=== PATIENT | male | born 1955 | race Caucasian/White ===

== ENCOUNTER → 2016-02-21 | Outpatient (CLI) | payer OTHER ==
[2015-07-12 07:32] VITALS: BP 166/88
[~2016-02-21] MED LIST: AMLO10TA2 PO; ASCO10002 PO; ASPI325T11 PO; ASPI81TA2 PO; ASPI81TA9 PO; ATOR40TA PO; CALC-159 PO; CALC500T50 PO; CARV25TA PO; CELE200C PO; CETI10CA PO; CHOL500016 PO; DICL112S2 TP; LISI-338 PO; LISI-375 PO; MV M PO; NIAC1000 PO; OXYC-250 PO; PSYL1PAC7 PO; SIMV40TA3 PO; SIMV5TAB PO; VITA100T5 PO; WARF6TAB PO
--- NOTE | 2016-02-21 13:07 | EKG ---
[facility] [address] [place] [address] Test Date: 2016-02-21 Test Time: 13:12:37 Pat Name: TRI DE LA ROSA Department: Room: Gender: M Kennel Operator: LETICIA : 1955 Requested By: LANE LUTHER Order Number: [id number] Reading MD: Measurements Intervals [place] Rate: 59 P: 62 [place]: 164 QRS: 80 QRSD: 88 T: 65 QT: 420 QTc: 420 Interpretive Statements SINUS RHYTHM LEFT ATRIAL ABNORMALITY R-S TRANSITION ZONE IN V LEADS DISPLACED TO THE LEFT INCOMPLETE RIGHT BUNDLE BRANCH BLOCK QRS(T) CONTOUR ABNORMALITY CONSIDER ANTEROLATERAL MYOCARDIAL DAMAGE ABNORMAL ECG RI6.01 Compared to ECG 08/03/2012 10:33:49 Myocardial infarct finding no longer present
[2016-02-21 13:22] LABS: BASO # 0.1 x10^3/uL (0.0-0.2); BASO % 1 % (0-3); EOS % 2 % (0-3); HEMATOCRIT 43.6 % (39.0-53.0); HEMOGLOBIN 14.4 g/dL (13.0-17.5); LYMPH # 1.7 x10^3/uL (1.0-4.8); LYMPH % 18 % (24-48); MEAN CORPUSCULAR HEMOGLOBIN 29 pg (25-35); MEAN CORPUSCULAR HGB CONC 33 g/dL (31-37); MEAN CORPUSCULAR VOLUME 87 fL (79-100); MONO % 9 % (0-9); NEUT % 70 % (31-73); PLATELET COUNT 226 x10^3/uL (140-400); RED BLOOD COUNT 4.99 x10^6/uL (4.30-5.70); WHITE BLOOD COUNT 9.2 x10^3/uL (4.0-11.0)
[2016-02-21 13:37] LABS: ALBUMIN 3.5 g/dL (3.4-5.0); CALCIUM 8.9 mg/dL (8.5-10.1); GFR 75.7; POTASSIUM 3.7 mmol/L (3.5-5.1)
[2016-02-21 14:17] LABS: INR 1.1 (0.8-1.1); PROTHROMBIN TIME PATIENT 13.2 SEC (11.7-14.0)
[2016-02-21 14:50] LABS: BILIRUBIN,URINE NEGATIVE (NEG); GLUCOSE,URINE NEGATIVE (NEG); NITRITE,URINE NEGATIVE (NEG); PROTEIN,URINE NEGATIVE (NEG-TRACE)
[2016-02-21 15:06] LABS: BACTERIA,URINE 0 /HPF (0-FEW); RBC,URINE 0 /HPF (0-2); WBC,URINE 0 /HPF (0-4)
== END | disposition home or self-care (01) ==
LOC: SURGPAT 11:26
PROVIDERS: ATTEND Orthopaedic Surgery Sports Medicine
DX: Z01.812 Encounter for preprocedural laboratory examination (principal)
CPT/HCPCS: 36415; 80048; 81001; 82040; 85027; 85610; 85651; 85730; 87641; 93005

== ENCOUNTER → 2016-03-28 | Outpatient (CLI) | payer OTHER ==
[2016-03-01 03:45] VITALS: BP 157/70
[~2016-03-28] MED LIST changes: +BENZ100C PO; +IOHEXOL 300 MG/ML 75 ML VIAL IV ONE; +OSEL75CA PO
--- NOTE | 2016-03-28 12:41 | RAD ---
Chest CT with contrast Clinical indications: Abnormal chest x-ray. Cough. Technique: After IV infusion of 75 cc of Omnipaque 300, helical CT scanning of the chest was performed. PQRS Compliance Statement: One or more of the following individualized dose reduction techniques were utilized for this examination: 1. Automated exposure control 2. Adjustment of the mA and/or kV according to patient size 3. Use of iterative reconstruction technique Comparison: No previous chest CTs available. Findings: Abnormal paratracheal lymph nodes are seen. The largest lymph node is seen in the azygos region measuring 3.2 cm in greatest transverse dimension. Smaller aortopulmonary window and subcarinal lymph nodes are seen in addition to the paratracheal lymph nodes. There is a large right hilar mass lesion which is invading the upper right mediastinum and occludes the right upper lobe bronchus. This mass lesion measures 6.3 cm in AP dimension and 6.7 cm in transverse dimension and 6.5 cm in vertical dimension. There is aeration of the right upper lobe although diffuse consolidative infiltrate is present within the posterior and apical segments. This could represent postobstructive pneumonitis or endobronchial spread of tumor. There is encasement of the right upper lobe pulmonary artery. No focal aneurysmal dilatation of the thoracic aorta is seen. The heart size is within normal range limits. Calcified atheromatous disease of the coronary arteries is seen. No pericardial effusion is seen. A small right-sided pleural effusion is evident. No pneumothorax is seen. The left lung field is clear. There is a left adrenal nodule measuring 22 mm. It measures 8 Hounsfield units. This is consistent with an adenoma. Small gallstone is seen within the gallbladder. Diffuse fatty infiltration of the liver is evident. IMPRESSION: Large right hilar mass lesion invading the upper right mediastinum including encasement of the right upper lobe pulmonary artery and occlusion of the right upper lobe bronchus. This is consistent with bronchogenic malignancy. Mediastinal lymphadenopathy. Calcified atheromatous disease of the coronary arteries. Small gallstone. Fatty infiltration of the liver. Left adrenal adenoma.
== END | disposition home or self-care (01) ==
LOC: CT 07:37
PROVIDERS: ATTEND Family Medicine Sports Medicine
DX: R91.8 Other nonspecific abnormal finding of lung field (principal)
CPT/HCPCS: 71260; Q9967

== ENCOUNTER → 2016-04-03 | Day surgery (SDC) | payer OTHER ==
[~2016-04-03] MED LIST changes: +ALBUTEROL SULFATE 2.5 MG/3 ML NEBU. ONE; -IOHEXOL 300 MG/ML 75 ML VIAL IV ONE; +IV RINGERS,LACTATED 1000ML 1,000 ML IV SCH; +LIDOCAINE 2% PF Vial for OR 5 ML VIAL. ONE; +MEPERIDINE PF 25 MG/ML VIAL. ONE; +PROPOFOL 20 ML IV ONE
[2016-04-03 14:38] VITALS: BP 140/77
--- NOTE | 2016-04-03 23:09 | OP ---
DATE OF SURGERY: 04/03/2016 PROCEDURE: Bronchoscopy, forceps biopsies x 4, lavage of the right upper lobe. INDICATIONS: The patient presented with a persistent cough, a large 6.3 cm right hilar mass with extension to the mediastinum of the right upper lobe pulmonary artery and occlusion of the right upper lobe bronchus, undergoing a diagnostic bronchoscopy. Risks, benefits, and alternatives reviewed with patient. He consented. SEDATION: Please see anesthesia's notes. DESCRIPTION OF PROCEDURE: A timeout was performed prior to sedation. Vital signs and O2 saturation were maintained within normal limits throughout the procedure. The bronchoscope was then introduced through the left naris. The vocal cords were identified moving bilaterally without any dysfunction. The vocal cords were then anesthetized with a total of 5 mL of 4% lidocaine. The bronchoscope was passed through the vocal cords into the proximal trachea, which was normal. The distal trachea was likewise normal. The left segments and subsegments were visualized. There was no endobronchial lesion. Upon inspecting the right side, the lower segments were patent and the right upper lobe was completely occluded with a white fungating mass. Forceps biopsies were utilized to obtain 4 biopsies. The patient tolerated the procedure well with no immediate complications. FINDINGS: 1. Normal vocal cords. 2. Normal left segments and subsegments. 3. Total occlusion of the right upper lobe segment with a fungating mass. Multiple biopsies performed. PLAN: We will await the biopsy results. The patient tolerated the procedure well with no immediate complications. SEB HOLDER MD DR: FORD/cecile JOB#: [id number] / [id number] ALBIN Mendez DO
--- NOTE | 2016-04-05 16:20 | PATHOLOGY ---
CYTOPATHOLOGY REPORT CLINICAL HISTORY: Lung mass. See also [id number]. SPECIMEN(S) RECEIVED: A.Bronchoalveolar lavage, RUL FINAL DIAGNOSIS: Right upper lobe bronchoalveolar lavage, ThinPrep: - No malignant cells identified. - Bronchial epithelial cells, squamous epithelial cells, and pulmonary macrophages identified within a background of few inflammatory cells and red blood cells. Few yeast/fungal organisms identified consistent with Mckenzie species. (JPM:mgr; d/t: 04/05/16) PATHOLOGIST: Temo Geller M.D. REPORT ELECTRONICALLY SIGNED BY: Temo Geller M.D. DATE/TIME: 04/05/2016 16:20 GROSS PATHOLOGY: A. Bronchoalveolar lavage, RUL: The specimen is submitted unfixed, labeled "Tri Blair". Received by the Cytology Department is 10 mL of cloudy red fluid. One ThinPrep slide was prepared. (clt 04.04.2016) POLISH COMPOUNDER(S): MCKENZIE Fisher([facility]) INITIAL CPT CODE(S): A; 08787 Professional services performed [place] [email or web address] [address] Technical services performed by [facility] at [address] [place] [address], [address], [place] [address]. PATIENT: TRI BLAIR /AGE: 8 1955 (Age: 60) SEX: M PATIENT #: [id number] ALT CASE #: SPECIMEN COLLECTION DATE: 04/03/2016 SPECIMEN RECEIVED DATE: 04/04/[address] [facility] [address] [place] [address], [address] [place] [address] PHONE: [phone] DIRECTOR: Jeffry Fry M.D. * * * END OF REPORT * * *
--- NOTE | 2016-04-08 14:04 | PATHOLOGY ---
PATHOLOGY REPORT * * * * * * * * FINAL DIAGNOSIS: Bronchial biopsy, right upper lobe: - SMALL CELL CARCINOMA. SEE COMMENT. COMMENT: Sections of the right upper lobe bronchial biopsy reveal segments of bronchial mucosa. There is a malignant epithelial neoplasm which appears to undermine the bronchial surface epithelium. The malignant cells are present in solid nests. The malignant cells are relatively small and have a high N/C ratio. The malignant cells possess rounded to ovoid nuclei having a finely dispersed chromatin and inconspicuous nucleoli. There is nuclear molding. The tumor cells show crush artifact. There is no evidence of glandular or squamous differentiation. A panel of immunoperoxidase stains is obtained and yields the following results: CD45: tumor cells negative Cytokeratin 7: tumor cells negative AE1/AE3: tumor cells show dot-like positivity CK5/6: tumor cells negative CD56: tumor cells positive TTF-1: tumor cells positive P40: tumor cells negative Synaptophysin: tumor cells positive The morphologic and immunophenotypic findings are supportive of the diagnosis of small cell carcinoma. The results are reported to Dr. Werner on 04/08/16 at !;00 PM. The case is also examined by Dr. Francisco Parks, who concurs with the diagnosis. (JPM:mgnimisha; d/t: 04/08/16) Special Stains Performed: Immunoperoxidase stains for CK7, AE1/AE3, LCA, CK5/6, P40, Synaptophysin, CD56, TTF-1. REPORT ELECTRONICALLY SIGNED BY: Temo Geller M.D. DATE/TIME: 04/08/2016 14:03 * * * * * * * * GROSS PATHOLOGY: Received in formalin labeled "States, Tri and RUL," are 3 segments of rodriguez soft tissue measuring 0.8 x 0.2 x 0.2 cm in aggregate dimensions and ranging from 0.2 to 0.3 cm in maximum dimension. The specimen is submitted entirely in cassette A1. (TTL; 04/04/2016) INITIAL CPT CODE(S): A; 85505, 86869, 13181, 30624, 13761, 92613, 13302, 97914, 06489 Professional services performed by [facility] at [facility] [address] [place] [address] Technical services performed by [facility] at [address] [place] [address], [address], [place] [address]. SPECIMEN(S) RECEIVED: A.Right upper lobe biopsy CLINICAL HISTORY: None given PATIENT: TRI DE LA ROSA /AGE: 8 1955 (Age: 60) PATIENT #: [id number] ALT CASE #: SPECIMEN COLLECTION DATE: 04/03/2016 SPECIMEN RECEIVED DATE: 04/04/2016 [facility] - [address] [place] [address] - PHONE: [phone] * * * END OF REPORT * * *
== END | disposition home or self-care (01) ==
LOC: SURG 11:49
PROVIDERS: ATTEND Internal Medicine Pulmonary Disease
DX: R91.8 Other nonspecific abnormal finding of lung field (principal); J98.4 Other disorders of lung; E78.00 Pure hypercholesterolemia, unspecified; I10 Essential (primary) hypertension; E66.9 Obesity, unspecified; M19.90 Unspecified osteoarthritis, unspecified site; Z96.651 Presence of right artificial knee joint
CPT/HCPCS: 31625; 87070; 87205; 88112; 88305; 88341; 88342; J2175; J2704; G0641

== ENCOUNTER → 2016-04-18 | Outpatient (CLI) | payer OTHER ==
[2016-04-03 14:38] VITALS: BP 140/77
[~2016-04-18] MED LIST changes: -ALBUTEROL SULFATE 2.5 MG/3 ML NEBU. ONE; -IV RINGERS,LACTATED 1000ML 1,000 ML IV SCH; -LIDOCAINE 2% PF Vial for OR 5 ML VIAL. ONE; -MEPERIDINE PF 25 MG/ML VIAL. ONE; -PROPOFOL 20 ML IV ONE
--- NOTE | 2016-04-18 12:34 | RAD ---
Exam performed: Nuclear medicine PET scan. History: [Chronic cough, abnormal chest x-ray]. Date of service: 04/18/16. Comparison: CT chest with contrast from 03/28/16. Technique: Patient was injected 12.3 mCi of F-18 FDG intravenously and delayed whole-body images are obtained from the skull base to the mid thighs. Corresponding noncontrast enhanced images are obtained for the purposes of attenuation correction and anatomical correlation. Patient's fasting blood glucose level at the time of injection measures 109 mg/dL. Findings: There is a large 6.3 x 7.5 cm hypermetabolic mass in the right hilum demonstrating SUV values of up to 15.5. Mass extends medially into the mediastinum. Postoperative changes are seen in the right upper lobe secondary to this mass causing obstruction/mass effect of the right upper lobe bronchus as was better visualized on a recent CT scan. There is a large dominant right paratracheal lymph node measuring 3.6 cm demonstrating SUV value of up to 12.4. There are several other hypermetabolic bilateral lymph nodes in the superior mediastinum with SUV value ranging between 5 and 12. Enlarged right supraclavicular lymph nodes demonstrate SUV value of up to 5.5. The evaluated portions of the brain appear normal. No hypermetabolic mass lesion is seen. The paranasal sinuses are clear. Pathological uptake in the oral cavity. The heart size appears mildly enlarged. Trace bilateral pleural effusions. No hypermetabolic activity seen in the abdomen or pelvis. Bilateral adrenal glands appear normal. Probable cholelithiasis. There is logical excretion via both kidneys. Sigmoid diverticulosis without evidence of acute diverticulitis. Impression: 1. Large hypermetabolic mass in the right hilum with SUV value of 15.5 consistent with a primary pulmonary malignancy with extensive remington metastasis as outlined above. 2. Small bilateral pleural effusions.
== END | disposition home or self-care (01) ==
LOC: PETSC 09:28
PROVIDERS: ATTEND Internal Medicine Critical Care Medicine
DX: R91.8 Other nonspecific abnormal finding of lung field (principal); J90 Pleural effusion, not elsewhere classified
CPT/HCPCS: 78815; A9552

== ENCOUNTER → 2016-04-22 | Outpatient (CLI) | payer OTHER ==
[2016-04-03 14:38] VITALS: BP 140/77
[~2016-04-22] MED LIST changes: +GADOBUTROL 10 MMOL/10 ML VIAL IV ONE
--- NOTE | 2016-04-22 10:17 | RAD ---
PROCEDURE Brain MRI with and without contrast. HISTORY Lung cancer staging. TECHNIQUE Multiplanar and multi sequence magnetic resonance imaging of the brain was performed prior to and following the administration of 10 cc Gadavist intravenous contrast. COMPARISON None. FINDINGS There is no restricted diffusion to suggest acute or subacute infarction. There is no susceptibility effect to suggest hemorrhage. There is no mass effect or midline shift. There is no hydrocephalus. There are multiple scattered focal areas of T2/FLAIR hyperintensity within the cerebral white matter, a nonspecific finding. The orbits, paranasal sinuses mastoid air cells are unremarkable. There are normal flow voids within the cerebral vessels. No suspicious enhancing lesion is seen. There is somewhat linear enhancement within the medial right frontal lobe which may be due to a deep penetrating vessel or tiny developmental venous anomaly. IMPRESSION 1. No acute intracranial finding or evidence of metastatic disease. 2. Multiple scattered focal areas of signal change throughout the cerebral white matter, likely due to chronic small vessel disease. Electronically signed by: Fadumo Marx (Apr 22, 2016 10:15:43)
== END | disposition home or self-care (01) ==
LOC: MRI 08:52
PROVIDERS: ATTEND Internal Medicine Hematology & Oncology
DX: C34.11 Malignant neoplasm of upper lobe, right bronchus or lung (principal)
CPT/HCPCS: 70553; A9585

== ENCOUNTER 2016-06-13 12:48 | Emergency (ER) | payer OTHER ==
[~2016-06-13] VITALS: Ht 172.7 cm; Wt 108.0 kg
[~2016-06-13 12:48] MED LIST changes: -GADOBUTROL 10 MMOL/10 ML VIAL IV ONE; +ONDA8TAB9 PO; -WARF6TAB PO; +WARF6TAB49 PO
--- NOTE | 2016-06-13 13:37 | PHYS DOC ---
Past Medical History Past Medical History: Alcoholism, Cancer, Hypertension Additional Past Medical Histor: Seasonal allergies, sleep ap. RADIATION AND CHEMO Past Surgical History: Other Additional Past Surgical Histo: Cardiac stent x 1,Stomach sleeve., R. knee Alcohol Use: None Drug Use: None Adult General Chief Complaint Chief Complaint: CHOKING HPI HPI Patient is a 60 year old male who presents with choking on his potassium pill. He states that 12:15 today he was trying as well as potassium pill and he got stuck in his throat. He states he pried and drinking enough water and should've broken in half. He denies any shortness of breath, fevers. He states is never happened to him before. He does have a history of lung cancer. Review of Systems Review of Systems Constitutional: Denies fever or chills [] Eyes: Denies change in visual acuity, redness, or eye pain [] HENT: Denies nasal congestion or sore throat [] Respiratory: Denies cough or shortness of breath [] Cardiovascular: No additional information not addressed in HPI [] GI: Denies abdominal pain, nausea, vomiting, bloody stools or diarrhea [] : Denies dysuria or hematuria [] Musculoskeletal: Denies back pain or joint pain [] Integument: Denies rash or skin lesions [] Neurologic: Denies headache, focal weakness or sensory changes [] Endocrine: Denies polyuria or polydipsia [] Current Medications Current Medications Current Medications Medications (Trade) Dose Ordered Sig/Ginny Start Time Stop Time Status Last Admin Dose Admin Multi-Ingredient Mouthwash/Gargle (Gi Cocktail Single Dose) 15 ml 1X ONCE 06/13/16 14:00 06/13/16 14:01 DC 06/13/16 14:17 15 ML Allergies Allergies Allergies Coded Allergies Type Severity Reaction Last Updated Verified Penicillins Allergy Intermediate RASH A CHILD 04/03/16 Yes soy Adverse Reaction Intermediate Nausea and Vomiting 04/03/16 Yes Physical Exam Physical Exam Constitutional: Well developed, well nourished, no acute distress, non-toxic appearance. [] HENT: Normocephalic, atraumatic, bilateral external ears normal, oropharynx moist, no oral exudates, nose normal. [] Eyes: PERRLA, EOMI, conjunctiva normal, no discharge. [] Neck: Normal range of motion, no tenderness, supple, no stridor. [] Cardiovascular:Heart rate regular rhythm, no murmur [] Lungs & Thorax: Bilateral breath sounds clear to auscultation [] Abdomen: Bowel sounds normal, soft, no tenderness, no masses, no pulsatile masses. [] Skin: Warm, dry, no erythema, no rash. [] Back: No tenderness, no CVA tenderness. [] Extremities: No tenderness, no cyanosis, no clubbing, ROM intact, no edema. [] Neurologic: Alert and oriented X 3, normal motor function, normal sensory function, no focal deficits noted. [] Psychologic: Affect normal, judgement normal, mood normal. [] Current Patient Data Vital Signs Vital Signs Date Time Temp Pulse Resp B/P Pulse Ox O2 Delivery O2 Flow Rate FiO2 06/13/16 12:52 97.9 101 16 142/93 99 Room Air 97.9 EKG EKG [] Radiology/Procedures Radiology/Procedures [facility] [address] [place] [address] IMAGING REPORT Signed PATIENT: TRI DE LA ROSA ACCOUNT: [id number] : 1955 LOCATION: ER AGE: 60 SEX: M EXAM STATUS: REG ER ORD. PHYSICIAN: VIVIENNE HERNANDEZ MD REASON: choking, cant swallow, lung cancer PROCEDURE: CHEST AP ONLY Portable chest, 06/13/2016: History: Choking, lung cancer Comparison is made to a study from 03/25/2016. The heart size and pulmonary vascularity are normal. The previously seen large mass in the medial aspect of the right lung in the suprahilar region has largely resolved. There are mild residual streaky parenchymal opacities in this region. No new pulmonary abnormality is seen. There is no evidence of pleural fluid or pneumothorax. IMPRESSION: Marked interval regression of the right suprahilar neoplasm since 03/25/2016, compatible with a favorable response to therapy. DICTATED and SIGNED BY: HOMERO MCLEAN MD DATE: 06/13/16 1402 CC: ALBIN JETER DO; VIVIENNE HERNANDEZ MD ~ Impressions: Choking episode Course & Med Decision Making Course & Med Decision Making Pertinent Labs and Imaging studies reviewed. (See chart for details) Patient was able tolerate several cups of water without any difficulty. He is given a GI cocktail feels much better. Chest x-ray doesn't show any abnormalities as acute. Patient being discharged home with Zantac 75 mg twice daily for 5 days and to follow-up with his primary care physician. He is instructed return the ER for worsening shortness of breath, chest pain, trouble swallowing or other concerns. He is agreeable Plan B discharged in stable condition. Dragon Disclaimer Dragon Disclaimer This electronic medical record was generated, in whole or in part, using a voice recognition dictation system. Departure Departure Impression: Primary Impression: Choking episode Disposition: HOME, SELF-CARE Condition: STABLE Referrals: ALBIN JETER DO (PCP) Patient Instructions: Choking, Adult Additional Instructions: You'll need to take Zantac 75 mg twice a day for the next 5 days to help her esophagus heal. If you have additional choking episodes if you develope chest pain shortness of breath or any other concerns please return back to ER. Otherwise you to follow up with primary care physician within the next week. VIVIENNE HERNANDEZ MD Jun 13, 2016 13:37
[2016-06-13] MEDS ORDERED: LIDO:MAALOX:DONNATAL 1:1:1 15 ML SINGLE DOSE SWSW ONE (14:00)
--- NOTE | 2016-06-13 14:08 | RAD ---
Portable chest, 06/13/2016: History: Choking, lung cancer Comparison is made to a study from 03/25/2016. The heart size and pulmonary vascularity are normal. The previously seen large mass in the medial aspect of the right lung in the suprahilar region has largely resolved. There are mild residual streaky parenchymal opacities in this region. No new pulmonary abnormality is seen. There is no evidence of pleural fluid or pneumothorax. IMPRESSION: Marked interval regression of the right suprahilar neoplasm since 03/25/2016, compatible with a favorable response to therapy.
[2016-06-13 15:18] VITALS: BP 163/98
== END 2016-06-13 15:19 | disposition home or self-care (01) ==
LOC: ER 12:48
DX: T17.898A Other foreign object in other parts of respiratory tract causing other injury, initial encounter (principal); I10 Essential (primary) hypertension; Z88.0 Allergy status to penicillin; Z91.018 Allergy to other foods; X58.XXXA Exposure to other specified factors, initial encounter; Y93.89 Activity, other specified; Y92.89 Other specified places as the place of occurrence of the external cause; Y99.8 Other external cause status
CPT/HCPCS: 71010; 99283-25; 99284-25

== ENCOUNTER 2016-06-16 16:41 | Emergency (ER) | payer OTHER ==
[~2016-06-16] VITALS: Ht 172.7 cm; Wt 108.9 kg
[2016-06-16] MEDS ORDERED: ONDANSETRON PF 4 MG/2 ML VIAL. IV ONE (17:00)
[2016-06-16] MEDS ORDERED: IV NORMAL SALINE 1000ML BAG 1,000 ML IV ONE (17:00)
--- NOTE | 2016-06-16 17:12 | PHYS DOC ---
Past Medical History Past Medical History: Alcoholism, Cancer, Hypertension Additional Past Medical Histor: Seasonal allergies, ENRIKE, RADIATION AND CHEMO FOR LUNG CA Past Surgical History: Other Additional Past Surgical Histo: Cardiac stent x 1,Stomach sleeve., R. knee Alcohol Use: None Drug Use: None Adult General Chief Complaint Chief Complaint: DEHYDRATION HPI HPI Patient is a 60 year old male presenting to the emergency department for evaluation of sore throat and decreased by mouth intake. Patient is a cancer patient of Dr. Polanco. He is being treated with both chemotherapy and radiation for his lung cancer. Last chemotherapy dose was approximately 10 days ago and last radiation was 2 days ago. Seen in the emergency department 3 days ago as he felt that a pill was stuck and he was treated with a GI cocktail and that he is able to swallow with no difficulty. He says he does not have a sore throat currently he says it only hurts when he tries to swallow. He has been avoiding drinking or eating because of the pain in his throat. Patient spoke to the oncologist on-call and they told him to come to the emergency department for evaluation. He says that he threw up yellowish material once this morning but has not been having any diarrhea in fact he feels that he is constipated. 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 with extensive bilateral mediastinal and supraclavicular involvement Review of Systems Review of Systems Constitutional: Denies fever or chills [] Eyes: Denies change in visual acuity, redness, or eye pain [] HENT: Denies nasal congestion or sore throat [] Respiratory: Denies cough or shortness of breath [] Cardiovascular: No additional information not addressed in HPI [] GI: Denies abdominal pain, nausea, vomiting, bloody stools or diarrhea [] : Denies dysuria or hematuria [] Musculoskeletal: Denies back pain or joint pain [] Integument: Denies rash or skin lesions [] Neurologic: Denies headache, focal weakness or sensory changes [] Endocrine: Denies polyuria or polydipsia [] Current Medications Current Medications Current Medications Medications (Trade) Dose Ordered Sig/Ginny Start Time Stop Time Status Last Admin Dose Admin Methylnaltrexone [place] (Relistor) 12 mg 1X ONCE 06/16/16 17:15 06/16/16 17:16 DC 06/16/16 17:44 12 MG Ondansetron HCl (Zofran) 8 mg 1X ONCE 06/16/16 17:00 06/16/16 17:02 DC 06/16/16 17:08 8 MG Sodium Chloride (Iv Sodium Chloride 0.9% 1000ml Bag) 1,000 ml @ 0 mls/hr 1X ONCE 06/16/16 17:00 06/16/16 17:02 DC 06/16/16 17:07 999 MLS/HR Allergies Allergies Allergies Coded Allergies Type Severity Reaction Last Updated Verified Penicillins Allergy Intermediate RASH A CHILD 04/03/16 Yes soy Adverse Reaction Intermediate Nausea and Vomiting 04/03/16 Yes Physical Exam Physical Exam Constitutional: Well developed, well nourished, no acute distress, non-toxic appearance. [] HENT: Normocephalic, atraumatic, bilateral external ears normal, oropharynx moist, no oral exudates, nose normal. [] Eyes: PERRLA, EOMI, conjunctiva normal, no discharge. [] Neck: Normal range of motion, no tenderness, supple, no stridor. [] Cardiovascular:Heart rate regular rhythm, no murmur [] Lungs & Thorax: Bilateral breath sounds clear to auscultation [] Abdomen: Bowel sounds normal, soft, no tenderness, no masses, no pulsatile masses. [] Skin: Warm, dry, no erythema, no rash. [] Back: No tenderness, no CVA tenderness. [] Extremities: No tenderness, no cyanosis, no clubbing, ROM intact, no edema. [] Neurologic: Alert and oriented X 3, normal motor function, normal sensory function, no focal deficits noted. [] Psychologic: Affect normal, judgement normal, mood normal. [] Current Patient Data Vital Signs Vital Signs Date Time Temp Pulse Resp B/P Pulse Ox O2 Delivery O2 Flow Rate FiO2 06/16/16 16:50 97.5 82 18 140/98 96 Room Air 97.5 Lab Values Laboratory Tests Test 06/16/16 16:55 06/16/16 18:15 White Blood Count 1.0x10^3/uL (4.0-11.0) *L Red Blood Count 3.97x10^6/uL (4.30-5.70) L Hemoglobin 11.0g/dL (13.0-17.5) L Hematocrit 32.7% (39.0-53.0) L Mean Corpuscular Volume 83fL (79-100) Mean Corpuscular Hemoglobin 28pg (25-35) Mean Corpuscular Hemoglobin Concent 34g/dL (31-37) Red Cell Distribution Width 16.1% (11.5-14.5) H Platelet Count 52x10^3/uL (140-400) L Neutrophils (%) (Auto) 70% (31-73) Lymphocytes (%) (Auto) 21% (24-48) L Monocytes (%) (Auto) 7% (0-9) Eosinophils (%) (Auto) 1% (0-3) Basophils (%) (Auto) 3% (0-3) Neutrophils # (Auto) 0.7x10^3uL (1.8-7.7) L Lymphocytes # (Auto) 0.2x10^3/uL (1.0-4.8) L Monocytes # (Auto) 0.1x10^3/uL (0.0-1.1) Eosinophils # (Auto) 0.0x10^3/uL (0.0-0.7) Basophils # (Auto) 0.0x10^3/uL (0.0-0.2) Segmented Neutrophils % 63% (35-66) Band Neutrophils % 4% (0-9) Lymphocytes % 28% (24-48) Atypical Lymphocytes % (Manual) 1% (0-0) H Monocytes % 2% (0-10) Eosinophils % 1% (0-5) Basophils % 1% (0-3) Platelet Estimate Decreased (ADEQUATE) Anisocytosis Slight Sodium Level 141mmol/L (136-145) Potassium Level 3.5mmol/L (3.5-5.1) Chloride Level 105mmol/L (98-107) Carbon Dioxide Level 29mmol/L (21-32) Anion Gap 7 (6-14) Blood Urea Nitrogen 11mg/dL (8-26) Creatinine 0.8mg/dL (0.7-1.3) Estimated GFR (Cockcroft-Gault) 98.0 BUN/Creatinine Ratio 14 (6-20) Glucose Level 105mg/dL (70-99) H Calcium Level 8.6mg/dL (8.5-10.1) Total Bilirubin 0.6mg/dL (0.2-1.0) Aspartate Amino Transferase (AST) 22U/L (15-37) Alanine Aminotransferase (ALT) 26U/L (16-63) Alkaline Phosphatase 59U/L (46-116) Total Protein 7.3g/dL (6.4-8.2) Albumin 3.3g/dL (3.4-5.0) L Albumin/Globulin Ratio 0.8 (1.0-1.7) L Lipase 89U/L (73-393) Urine Collection Type Unknown Urine Color Yellow Urine Clarity Clear Urine pH 7.0 Urine Specific [place] 1.010 Urine Protein 30mg/dL (NEG-TRACE) Urine Glucose (UA) Negativemg/dL (NEG) Urine Ketones (Stick) Tracemg/dL (NEG) Urine Blood Negative (NEG) Urine Nitrite Negative (NEG) Urine Bilirubin Negative (NEG) Urine Urobilinogen Dipstick 1.0mg/dL (0.2 mg/dL) Urine Leukocyte Esterase Negative (NEG) Urine RBC 3-5/HPF (0-2) Urine WBC 1-4/HPF (0-4) Urine Bacteria 0/HPF (0-FEW) Urine Mucus Slight/LPF Laboratory Tests 06/16/16 16:55 Laboratory Tests 06/16/16 16:55 EKG EKG [] Radiology/Procedures Radiology/Procedures Patient's acute abdominal series is no free air no opacity and no pneumothorax. He does have a large amount of stool and possibly some fecal retention. Course & Med Decision Making Course & Med Decision Making Patient presenting to the emergency department for evaluation of symptoms consistent with radiation esophagitis. He has not been using the Magic mouthwash as prescribed as he only uses sparingly and he is not swallowing. Patient has also not been using his Zofran as he says he is afraid it will make him constipated. I told him that the morphine is thing that is making him constipated and that it is okay to use his Zofran for any nausea or vomiting. Patient is able to eat soup and drink liquids here without any difficulty and no vomiting. He denies having any fevers. I spoke to the oncologist chemical instrumentation officer Dr. Gomez and she said to avoid admitting patient possible as he is having no signs or symptoms of infection and that he can be treated as an outpatient for his radiation esophagitis he can tolerate by mouth here. His chemistry profile is unremarkable. Patient feels much better after eating and drinking and having IV fluids here so he'll be discharged in stable condition. Patient aware and agreeable with plan for discharge and was understanding of the need for short-term follow-up district ER return precautions discussed and clear worsening pain fever vomiting or other general concerns. Dragon Disclaimer Dragon Disclaimer This electronic medical record was generated, in whole or in part, using a voice recognition dictation system. Departure Departure Impression: Primary Impression: Radiation esophagitis Additional Impressions: Pancytopenia Nausea & vomiting Disposition: HOME, SELF-CARE Condition: GOOD Referrals: ALBIN JETER DO (PCP) Patient Instructions: Esophagitis Additional Instructions: YOU CAN SWALLOW THE MAGIC MOUTHWASH. USE MIRALAX OTC AND DON'T BE AFRAID TO USE THE ZOFRAN. FOLLOW WITH YOUR ONCOLOGIST JET AND COME BACK TO THE ED SOONER WITH ANY NEW OR WORSENING SYMPTOMS. THANK YOU! Problem Qualifiers LAINE MCHUGH DO Jun 16, 2016 17:12
[2016-06-16 17:13] LABS: BASO % 3 % (0-3); EOS % 1 % (0-3); HEMATOCRIT 32.7 % (39.0-53.0); LYMPH # 0.2 x10^3/uL (1.0-4.8); LYMPH % 21 % (24-48); MEAN CORPUSCULAR HEMOGLOBIN 28 pg (25-35); MEAN CORPUSCULAR HGB CONC 34 g/dL (31-37); MEAN CORPUSCULAR VOLUME 83 fL (79-100); MONO % 7 % (0-9); NEUT % 70 % (31-73); PLATELET COUNT 52 x10^3/uL (140-400); RED BLOOD COUNT 3.97 x10^6/uL (4.30-5.70); RED CELL DISTRIBUTION WIDTH 16.1 % (11.5-14.5)
[2016-06-16] MEDS ORDERED: METHYLNALTREXONE 12 MG/0.6 ML VIAL. SQ ONE (17:15)
[2016-06-16 17:21] LABS: CALCIUM 8.6 mg/dL (8.5-10.1); CREATININE 0.8 mg/dL (0.7-1.3); POTASSIUM 3.5 mmol/L (3.5-5.1)
[2016-06-16 17:27] LABS: ALBUMIN 3.3 g/dL (3.4-5.0); ALBUMIN/GLOBULIN RATIO 0.8 (1.0-1.7); TOTAL BILIRUBIN 0.6 mg/dL (0.2-1.0); TOTAL PROTEIN 7.3 g/dL (6.4-8.2)
[2016-06-16 17:33] LABS: % BASOS 1 % (0-3); % EOS 1 % (0-5)
[2016-06-16 17:34] LABS: ANISOCYTOSIS SLIGHT; PLT ESTIMATE DECREASED (ADEQUATE)
[2016-06-16 18:25] LABS: BILIRUBIN,URINE NEGATIVE (NEG); GLUCOSE,URINE NEGATIVE (NEG); NITRITE,URINE NEGATIVE (NEG); PROTEIN,URINE 30 mg/dL (NEG-TRACE)
[2016-06-16 18:40] VITALS: BP 137/77
[2016-06-16 18:42] LABS: BACTERIA,URINE 0 /HPF (0-FEW)
[2016-06-17 07:32] LABS: NEGATIVE OBC STREP NEG; POSITIVE OBC STREP POS
--- NOTE | 2016-06-17 08:23 | RAD ---
Indication abdominal pain. Constipation. A single view of the chest was obtained as well as flat and upright films of the abdomen. The chest is compared to a study 06/13/2016. There are changes, likely reflecting scar, in the right upper lobe. The appearance is similar to the study 3 days earlier. (Comparison with more previous exams of the chest is suggested to confirm stability) heart size is at the upper limits of normal. There is no gross congestive heart failure. Acute finding in the chest is not seen. There is no free air. The abdominal gas pattern has a nonobstructive appearance. Moderate amount of stool is noted in the large bowel. An acute finding in the chest is not apparent. Postoperative changes are noted. The findings and recommendations were communicated to Etelvina, jordana neuro in the emergency room, at the time of dictation. IMPRESSION: Probable chronic changes in the right upper lobe. Comparison with prior examinations advised as outlined above. No acute finding apparent in the chest. No acute finding apparent in the abdomen
== END 2016-06-16 19:10 | disposition home or self-care (01) ==
LOC: ER 16:41
DX: K20.8 Other esophagitis (principal); D61.818 Other pancytopenia; R11.2 Nausea with vomiting, unspecified; F10.20 Alcohol dependence, uncomplicated; I10 Essential (primary) hypertension; G47.33 Obstructive sleep apnea (adult) (pediatric); Z88.0 Allergy status to penicillin; Z91.018 Allergy to other foods; Z92.3 Personal history of irradiation; Z85.118 Personal history of other malignant neoplasm of bronchus and lung; Z51.11 Encounter for antineoplastic chemotherapy; Z95.5 Presence of coronary angioplasty implant and graft
CPT/HCPCS: 36415; 74022; 80053; 81001; 83690; 85007; 85027; 87070; 87880; 96361; 96372; 96374; 99285; J2212; J2405; J7030

== ENCOUNTER 2016-06-20 12:06 | Inpatient (IN) | payer OTHER ==
[~2016-06-20] VITALS: Ht 172.7 cm; Wt 103.0 kg
[2016-06-20 14:30] VITALS: BP 170/86
[2016-06-20] MEDS ORDERED: OMEP40CA5 PO (14:42)
[2016-06-20] MEDS ORDERED: [UNRECOGNIZED DRUG - CODE] PO (14:42)
[2016-06-20] MEDS ORDERED: NYST100054 PO (14:42)
[2016-06-20] MEDS ORDERED: ATOR40TA59 PO (14:42)
[2016-06-20] MEDS ORDERED: fentaNYL PF VIAL 100 MCG/2 ML VIAL IV PRN (16:00)
[2016-06-20] MEDS: ENOXAPARIN 40 MG/0.4 ML SYRINGE. SQ SCH (16:00)
[2016-06-20] MEDS: AMINO AC 3%/ELECTROLYTE/GLYCER 1,000 ML IV SCH (16:00)
[2016-06-20] MEDS: PANTOPRAZOLE IV PUSH 40 MG VIAL. IVP SCH (16:30)
--- NOTE | 2016-06-20 16:34 | PDOC2 ---
GI CONSULT Reason For Consult: Radiation esophagitis, dysphagia HPI: HPI: 60 y/o male w/ stage 3 SCC RUL diagnosed in 03/2016, currently on radiation ( last 06/18/16) and chemo (last 06/07). Describes some odynophagia for some time w / radiation w/ onset of pill dysphagia ~1 week ago which progressed. Eventually unable to tolerate solid food at home, but ate some soups (beef broth , chicken and rice soup) earlier in the week. Now describes vomiting/coughing w / attempted liquid intake and was directly admitted this afternoon. Has been seen in ER twice recently (06/13, 06/16) for similar symptoms, has tried Magic mouthwash and Zofran, also home meds show Nystatin susp and omeprazole. No previous h/o GERD. Recalls EGD years ago. Last colonoscopy w/ diverticulosis ~ 5 years ago. H/o heavy alcohol use, sober since 1986. Also had an episode of pancreatitis in 2013. H/o constipation, he says improved w/ Dulcolax at home. Denies hematemesis, hematochezia, melena. Estimates 50 pound weight loss. Home meds also show ASA, Celebrex. No labs yet this admission, noted recently w / pancytopenia. Started on IV PPI QD, kept NPO. His is an employee here at [employer]. PMH: PMH: lung cancer on radiation and chemo, HTN, HLD, CAD w/ cardiac stent (2000), pancreatitis, diverticulosis, constipation, gastric sleeve, right total knee replacement FH: Family History: Cancer (grandfather had either colon or pancreatic cancer) Social History: Smoke: Quit ALCOHOL: other (previously drank heavily, sober since 1986) Drugs: None ROS: GEN: Denies fevers, chills, sweats HEENT: Denies blurred vision, sore throat CV: Denies chest pain RESP: +soa, cough GI: Per HPI : Denies hematuria, dysuria ENDO: +weight loss NEURO: Denies confusion, dizziness MSK: +weakness SKIN: Denies jaundice, pruritus Vitals: Vitals: Vital Signs Date Time Temp Pulse Resp B/P (MAP) Pulse Ox O2 Delivery O2 Flow Rate FiO2 06/20/16 15:17 Room Air 06/20/16 14:30 97.7 83 20 170/86 (066) 97 97.7 Allergies: Coded Allergies: Penicillins (Verified Allergy, Intermediate, RASH A CHILD, 04/03/16) soy (Verified Adverse Reaction, Intermediate, Nausea and Vomiting, 04/03/16 ) soy marquez oil Medications: Please see EMR. Imaging: Imaging: Reviewed from previous. PE: GEN: NAD, hoarse HEENT: Atraumatic, PERRL LUNGS: decreased HEART: RRR ABD: NABS, S/ND/NT EXTREMITY: No edema NEURO/PSYCH: A & O 3 A/P: A/P: Stage 3 lung cancer on radiation and chemo Odynophagia, dysphagia, vomiting -ongoing odynophagia for awhile w/ radiation -dysphagia x 1 week, began w/ a pill, progressed to solids and then liquids w/ vomiting -has tried PPI, magic mouthwash, Zofran, and Nystatin susp Constipation Pancytopenia -- Will review w/ Dr. Mcelroy re: additional meds beyond PPI (Nystatin/Diflucan, ? Reglan) and/or need for EGD. KELSI KNAPP June 20, 2016 16:34
--- NOTE | 2016-06-20 16:42 | PDOC1 ---
History and Physical Date of Admission Date of Admission DATE: 06/20/16 TIME: 16:37 Identification/Chief Complaint Chief Complaint difficulty and painful swallowing Problems: Source Source: Caregiver, Chart review, Patient History of Present Illness History of Present Illness 60 y.o male with stage III B small cell lung CA undergoing palliative chemotherapy by Dr. Polanco and also has undergone 25 cycles of radiation to the chest, has been having dysphagia and odynophagia since beeing on radiation, Culminated in difficulty swallowing a Potassium pill some weeks or days ago, HE was at ER for this issue, was sent home, NOw he has odynophagia on liquids,. Roxanol was given at ER on dc but cant even do that anymore, Hence the admission for pain mx and GI consult. Dw Heme onc [facility] [employer] Past Medical History Heme/Onc: Cancer Past Surgical History Past Surgical History: No pertinent history Family History Family History: No Significant Social History Smoke: Quit ALCOHOL: other (previously drank heavily, sober since 1986) Drugs: None Current Medications Current Medications Current Medications Pantoprazole Sodium (Protonix Vial) 40 mg DAILYAC IVP ; Start 06/20/16 at 16:30 Enoxaparin Sodium (Lovenox 40mg Syringe) 40 mg Q24H SQ ; Start 06/20/16 at 16:00 Morphine Sulfate 2 mg PRN Q2HR PRN IV PAIN; Start 06/20/16 at 15:30 Fentanyl Citrate (Fentanyl 2ml Vial) 50 mcg PRN Q2HR PRN IV PAIN; Start at 16:00 Active Scripts Active Tessalon Perle (Benzonatate) 100 Mg Capsule 100 Mg PO TID PRN Reported Atorvastatin Calcium 40 Mg Tablet 40 Mg PO HS Omeprazole 40 Mg Capsule.dr 40 Mg PO DAILYWSUP Nystatin 100,000 Unit/1 Ml Oral.susp 5 Ml PO QID Antacid Anti-Gas Liquid (Mag Hydrox/Al Hydrox/Simeth) 355 Ml Oral.susp 355 Ml PO TIDACHC Amlodipine Besylate 10 Mg Tablet 10 Mg PO DAILY Aspirin Ec (Aspirin) 81 Mg Tablet.dr 1 Tab PO DAILY Vitamin D3 (Cholecalciferol (Vitamin D3)) 5,000 Unit Tablet 1 Tab PO DAILY Coreg (Carvedilol) 25 Mg Tablet 1 Tab PO BID Lipitor (Atorvastatin Calcium) 40 Mg Tablet 40 Mg PO HS Metamucil Packet (Psyllium Seed (With Sugar)) 1 Each Packet 1 Each PO DAILY Calcium 250+D Tablet (Calcium Carbonate/Vitamin D3) 1 Each Tablet 1 Each PO BID Celebrex (Celecoxib) 200 Mg Capsule 200 Mg PO DAILY Allergies Allergies: Coded Allergies: Penicillins (Verified Allergy, Intermediate, RASH A CHILD, 04/03/16) soy (Verified Adverse Reaction, Intermediate, Nausea and Vomiting, 04/03/16 ) soy marquez oil ROS General: No: Chills, Night Sweats, Fatigue, Malaise, Appetite, Other PSYCHOLOGICAL ROS: No: Anxiety, Behavioral Disorder, Concentration difficultie , Decreased libido, Depression, Disorientation, Hallucinations, Hostility, Irritablity, Memory difficulties, Mood Swings, Obsessive thoughts, Physical abuse, Sexual abuse, Sleep disturbances, Suicidal ideation, Other Eyes: No Blurry vision, No Decreased vision, No Double vision, No Dry eyes, No Excessive tearing, No Eye Pain, No Itchy Eyes, No Loss of vision, No Photophobia , No Scotomata, No Uses contacts, No Uses glasses, No Other HEENT: YES: Other (odyno and dysphagia) ALLERGY AND IMMUNOLOGY: No: Hives, Insect Bite Sensitivity, Itchy/Watery Eyes, Nasal Congestion, Post Nasal Drip, Seasonal Allergies, Other Hematological and Lymphatic: No: Bleeding Problems, Blood Clots, Blood Transfusions, Brusing, Night Sweats, Pallor, Swollen Lymph Nodes, Other ENDOCRINE: No: Breast Changes, Galactorrhea, Hair Pattern Changes, Hot Flashes , Malaise/lethargy, Mood Swings, Palpitations, Polydipsia/polyuria, Skin Changes , Temperature Intolerance, Unexpected Weight Changes, Other Respiratory: No: Cough, Hemoptysis, Orthopnea, Pleuritic Pain, Shortness of breath, SOB with excertion, Sputum Changes, Stridor, Tachypnea, Wheezing, Other Cardiovascular: No Chest Pain, No Palpitations, No Orthopnea, No Paroxysmal Noc. Dyspnea, No Edema, No Lt Headedness, No Other Gastrointestinal: Yes Other (as per HPI) Genitourinary: No Dysuria, No Frequency, No Incontinence, No Hematuria, No Retention, No Discharge, No Urgency, No Pain, No Flank Pain, No Other, No , No , No , No , No , No , No Musculoskeletal: No Gait Disturbance, No Joint Pain, No Joint Stiffness, No Joint Swelling, No Muscle Pain, No Muscular Weakness, No Pain In:, No Swelling In:, No Other Neurological: No Behavorial Changes, No Bowel/Bladder ControlChng, No Confusion , No Dizziness, No Gait Disturbance, No Headaches, No Impaired Coord/balance, No Memory Loss, No Numbness/Tingling, No Seizures, No Speech Problems, No Tremors, No Visual Changes, No Weakness, No Other Skin: No Dry Skin, No Eczema, No Hair Changes, No Lumps, No Mole Changes, No Mottling, No Nail Changes, No Pruritus, No Rash, No Skin Lesion Changes, No Other, No Acne Physical Exam General: Alert, Oriented X3, Cooperative, No acute distress HEENT: Atraumatic, PERRLA, EOMI Lungs: Clear to auscultation Heart: S1S2, RRR, no thrills, no rubs, no gallops Cardiovascular: S1, S2 Breasts: Normal, Rt breast nml w/o mass, Lt breast nml w/o mass, Nipples normal Abdomen: Normal bowel sounds, Soft, No tenderness, No hepatosplenomegaly, No masses Male Genitals Exam: normal genitalia Rectal Exam: not examined Extremities: No clubbing, No cyanosis, No edema, Normal pulses, No tenderness/ swelling Skin: No rashes, No breakdown, No significant lesion Neuro: Normal gait, Normal speech, Strength at 5/5 X4 ext, Normal tone, Sensation intact, Cranial nerves 3-12 NL, Reflexes 2+ Psych/Mental Status: Mental status NL, Mood NL Vitals Vitals Vital Signs Date Time Temp Pulse Resp B/P (MAP) Pulse Ox O2 Delivery O2 Flow Rate FiO2 06/20/16 15:17 Room Air 06/20/16 14:30 97.7 83 20 170/86 (114) 97 97.7 VTE Prophylaxis Ordered VTE Prophylaxis Devices: Yes VTE Pharmacological Prophylaxi: Yes Assessment/Plan Assessment/Plan 1. 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 Ex smoker PLAn: NPO, procalamine Pain control with IV narcs PPI IV DVt prophy COnsult GI and heme oinc Dw pt and RN 2 MN admit MIRZA TRINIDAD MD June 20, 2016 16:42
[2016-06-20] MEDS ORDERED: PROCHLORPERAZINE 25 MG SUPP.RECT. PR PRN (16:45)
[2016-06-20] MEDS ORDERED: PROCHLORPERAZINE 10 MG/2 ML VIAL. IV PRN (16:45)
[2016-06-20] MEDS ORDERED: ONDANSETRON PF 4 MG/2 ML VIAL. IV PRN (16:45)
[2016-06-20] MEDS: MORPHINE SULFATE 2 MG/ML DISP.SYRIN. IV PRN ×3 (17:16→22:14)
[2016-06-20 19:00] VITALS: BP 159/94
[2016-06-20 23:00] VITALS: BP 167/99
[2016-06-21] VITALS (7 sets, daily range): BP systolic 145–166; BP diastolic 86–108
[2016-06-21] MEDS: MORPHINE SULFATE 2 MG/ML DISP.SYRIN. IV PRN ×7 (02:21→21:20)
[2016-06-21 03:45] LABS: BASO % 1 % (0-3); EOS % 2 % (0-3); HEMATOCRIT 28.8 % (39.0-53.0); HEMOGLOBIN 9.9 g/dL (13.0-17.5); LYMPH # 0.2 x10^3/uL (1.0-4.8); LYMPH % 22 % (24-48); MEAN CORPUSCULAR HEMOGLOBIN 28 pg (25-35); MEAN CORPUSCULAR HGB CONC 35 g/dL (31-37); MEAN CORPUSCULAR VOLUME 82 fL (79-100); MONO % 45 % (0-9); NEUT % 31 % (31-73); PLATELET COUNT 143 x10^3/uL (140-400); RED BLOOD COUNT 3.53 x10^6/uL (4.30-5.70); RED CELL DISTRIBUTION WIDTH 16.2 % (11.5-14.5)
[2016-06-21 04:20] LABS: INR 1.2 (0.8-1.1); PROTHROMBIN TIME PATIENT 14.5 SEC (11.7-14.0)
[2016-06-21] MEDS: AMINO AC 3%/ELECTROLYTE/GLYCER 1,000 ML IV SCH ×2 (05:26→18:24)
[2016-06-21] MEDS: PANTOPRAZOLE IV PUSH 40 MG VIAL. IVP SCH (07:35)
--- NOTE | 2016-06-21 08:56 | PDOC ---
Provider Note Provider Note Onc consult dictated- [id number] SCLC on chemoradiation, done with RT, last chemo 06/05, next cycle due 06/26, likely to be delayed Neutropenia- Started granix, continue until ANC > 1.5 Odynophagia, mucositis- Should improve with count recovery. Hold off on EGD. CHELLY PALAFOX DO June 21, 2016 08:56
[2016-06-21] MEDS ORDERED: LIDOCAINE 2% VISCOUS 15 ML SOLUTION. SWSW PRN (09:30)
[2016-06-21] MEDS: METOCLOPRAMIDE HCL 10 MG/2 ML VIAL. IV SCH ×4 (09:32→21:21)
[2016-06-21] MEDS: LABETALOL 20 MG/4 ML DISP.SYRIN. IVP PRN (10:55)
--- NOTE | 2016-06-21 10:56 | PDOC ---
PROGRESS NOTES Chief Complaint Chief Complaint 1. 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 NO EGD yet - tentative plans Friday BP high - labetolol prn on board Dw SWSW Lidocaine - not ready He even spits up ice chips PLAN: NPO Procalamine prn labetolol Will stay over weekend EGD plans tentative friday pending weekend course Vitals Vitals Vital Signs Date Time Temp Pulse Resp B/P (MAP) Pulse Ox O2 Delivery O2 Flow Rate FiO2 06/21/16 08:11 Room Air 06/21/16 08:00 91 152/100 (117) 06/21/16 07:25 98.1 16 97 98.1 Physical Exam General: Alert, Oriented X3, Cooperative, No acute distress Abdomen: Normal bowel sounds, Soft, No tenderness, No hepatosplenomegaly, No masses Extremities: No clubbing, No cyanosis, No edema, Normal pulses, No tenderness/ swelling Skin: No rashes, No breakdown, No significant lesion Labs LABS Laboratory Tests Test 06/21/16 03:05 White Blood Count 1.0 x10^3/uL (4.0-11.0) Red Blood Count 3.53 x10^6/uL (4.30-5.70) Hemoglobin 9.9 g/dL (13.0-17.5) Hematocrit 28.8 % (39.0-53.0) Mean Corpuscular Volume 82 fL (79-100) Mean Corpuscular Hemoglobin 28 pg (25-35) Mean Corpuscular Hemoglobin Concent 35 g/dL (31-37) Red Cell Distribution Width 16.2 % (11.5-14.5) Platelet Count 143 x10^3/uL (140-400) Neutrophils (%) (Auto) 31 % (31-73) Lymphocytes (%) (Auto) 22 % (24-48) Monocytes (%) (Auto) 45 % (0-9) Eosinophils (%) (Auto) 2 % (0-3) Basophils (%) (Auto) 1 % (0-3) Neutrophils # (Auto) 0.3 x10^3uL (1.8-7.7) Lymphocytes # (Auto) 0.2 x10^3/uL (1.0-4.8) Monocytes # (Auto) 0.4 x10^3/uL (0.0-1.1) Eosinophils # (Auto) 0.0 x10^3/uL (0.0-0.7) Basophils # (Auto) 0.0 x10^3/uL (0.0-0.2) Prothrombin Time 14.5 SEC (11.7-14.0) Prothromb Time International Ratio 1.2 (0.8-1.1) Review of Systems Review of Systems as per hPI, all else is neg Comment Review of Relevant I have reviewed the following items tra (where applicable) has been applied. Labs Laboratory Tests Test 06/21/16 03:05 White Blood Count 1.0 x10^3/uL (4.0-11.0) Red Blood Count 3.53 x10^6/uL (4.30-5.70) Hemoglobin 9.9 g/dL (13.0-17.5) Hematocrit 28.8 % (39.0-53.0) Mean Corpuscular Volume 82 fL (79-100) Mean Corpuscular Hemoglobin 28 pg (25-35) Mean Corpuscular Hemoglobin Concent 35 g/dL (31-37) Red Cell Distribution Width 16.2 % (11.5-14.5) Platelet Count 143 x10^3/uL (140-400) Neutrophils (%) (Auto) 31 % (31-73) Lymphocytes (%) (Auto) 22 % (24-48) Monocytes (%) (Auto) 45 % (0-9) Eosinophils (%) (Auto) 2 % (0-3) Basophils (%) (Auto) 1 % (0-3) Neutrophils # (Auto) 0.3 x10^3uL (1.8-7.7) Lymphocytes # (Auto) 0.2 x10^3/uL (1.0-4.8) Monocytes # (Auto) 0.4 x10^3/uL (0.0-1.1) Eosinophils # (Auto) 0.0 x10^3/uL (0.0-0.7) Basophils # (Auto) 0.0 x10^3/uL (0.0-0.2) Prothrombin Time 14.5 SEC (11.7-14.0) Prothromb Time International Ratio 1.2 (0.8-1.1) Laboratory Tests Test 06/21/16 03:05 White Blood Count 1.0 x10^3/uL (4.0-11.0) Red Blood Count 3.53 x10^6/uL (4.30-5.70) Hemoglobin 9.9 g/dL (13.0-17.5) Hematocrit 28.8 % (39.0-53.0) Mean Corpuscular Volume 82 fL (79-100) Mean Corpuscular Hemoglobin 28 pg (25-35) Mean Corpuscular Hemoglobin Concent 35 g/dL (31-37) Red Cell Distribution Width 16.2 % (11.5-14.5) Platelet Count 143 x10^3/uL (140-400) Neutrophils (%) (Auto) 31 % (31-73) Lymphocytes (%) (Auto) 22 % (24-48) Monocytes (%) (Auto) 45 % (0-9) Eosinophils (%) (Auto) 2 % (0-3) Basophils (%) (Auto) 1 % (0-3) Neutrophils # (Auto) 0.3 x10^3uL (1.8-7.7) Lymphocytes # (Auto) 0.2 x10^3/uL (1.0-4.8) Monocytes # (Auto) 0.4 x10^3/uL (0.0-1.1) Eosinophils # (Auto) 0.0 x10^3/uL (0.0-0.7) Basophils # (Auto) 0.0 x10^3/uL (0.0-0.2) Prothrombin Time 14.5 SEC (11.7-14.0) Prothromb Time International Ratio 1.2 (0.8-1.1) Medications Current Medications Pantoprazole Sodium (Protonix Vial) 40 mg DAILYAC IVP Last administered on t 07:35; Start 06/20/16 at 16:30 Enoxaparin Sodium (Lovenox 40mg Syringe) 40 mg Q24H SQ ; Start 06/20/16 at 16:00 Morphine Sulfate 2 mg PRN Q2HR PRN IV PAIN Last administered on 06/21/16 07:41 ; Start 06/20/16 at 15:30 Fentanyl Citrate (Fentanyl 2ml Vial) 50 mcg PRN Q2HR PRN IV PAIN; Start at 16:00 Ondansetron HCl (Zofran) 4 mg PRN Q6HRS PRN IV NAUSEA/VOMITING; Start 06/20/16 at 16:45 Prochlorperazine Edisylate (Compazine) 10 mg PRN Q6HRS PRN IV NAUSEA/VOMITING; Start 06/20/16 at 16:45 Prochlorperazine (Compazine) 25 mg PRN Q12HR PRN [place] NAUSEA/VOMITING; Start 06/20 at 16:45 Labetalol HCl (Normodyne) 10 mg PRN Q2HR PRN IVP HYPERTENSION, SEE COMMENTS; Start 06/20/16 at 19:15 Metoclopramide HCl (Reglan) 5 mg QID IV Last administered on 06/21/16 09:32; Start 06/21/16 at 09:00 Tbo-Filgrastim (Granix) 480 mcg QHS SQ ; Start 06/21/16 at 21:00 Lidocaine HCl (Viscous Lidocaine) 15 ml PRN Q4HRS PRN SWSW MOUTH PAIN; Start at 09:30 Active Scripts Active Tessalon Perle (Benzonatate) 100 Mg Capsule 100 Mg PO TID PRN Reported Atorvastatin Calcium 40 Mg Tablet 40 Mg PO HS Omeprazole 40 Mg Capsule.dr 40 Mg PO DAILYWSUP Nystatin 100,000 Unit/1 Ml Oral.susp 5 Ml PO QID Antacid Anti-Gas Liquid (Mag Hydrox/Al Hydrox/Simeth) 355 Ml Oral.susp 355 Ml PO TIDACHC Amlodipine Besylate 10 Mg Tablet 10 Mg PO DAILY Aspirin Ec (Aspirin) 81 Mg Tablet.dr 1 Tab PO DAILY Vitamin D3 (Cholecalciferol (Vitamin D3)) 5,000 Unit Tablet 1 Tab PO DAILY Coreg (Carvedilol) 25 Mg Tablet 1 Tab PO BID Lipitor (Atorvastatin Calcium) 40 Mg Tablet 40 Mg PO HS Metamucil Packet (Psyllium Seed (With Sugar)) 1 Each Packet 1 Each PO DAILY Calcium 250+D Tablet (Calcium Carbonate/Vitamin D3) 1 Each Tablet 1 Each PO BID Celebrex (Celecoxib) 200 Mg Capsule 200 Mg PO DAILY Vitals/I & O Vital Sign - Last 24 Hours 06/20/16 06/20/16 06/20/16 06/20/16 14:30 14:30 15:17 17:16 Temp 97.7 97.7 97.7 97.7 Pulse 83 83 Resp 20 20 B/P (MAP) 170/86 (114) 170/86 (114) Pulse Ox 97 97 O2 Delivery Room Air Room Air Room Air Room Air 06/20/16 06/20/16 06/20/16 06/20/16 19:00 19:47 20:00 20:17 Temp 98.2 98.2 Pulse 78 Resp 18 20 B/P (MAP) 159/94 (115) Pulse Ox 95 96 O2 Delivery Room Air Room Air Room Air 06/20/16 06/20/16 06/21/16 06/21/16 22:14 23:00 02:21 02:51 Temp 98.1 98.1 Pulse 78 Resp 20 18 20 18 B/P (MAP) 167/99 (121) Pulse Ox 98 98 O2 Delivery Room Air Room Air 06/21/16 06/21/16 06/21/16 06/21/16 03:00 05:22 07:25 07:41 Temp 98.2 98.1 98.2 98.1 Pulse 81 97 Resp 18 20 16 B/P (MAP) 160/98 (118) 166/108 (127) Pulse Ox 91 97 O2 Delivery Room Air Room Air Room Air Room Air 06/21/16 06/21/16 08:00 08:11 Pulse 91 B/P (MAP) 152/100 (117) O2 Delivery Room Air Intake and Output 06/20/16 06/20/16 06/21/16 15:00 23:00 07:00 Intake Total 0 ml Output Total 0 ml Balance 0 ml 0 ml MIRZA TRINIDAD MD June 21, 2016 10:56
--- NOTE | 2016-06-21 12:10 | PDOC ---
Subjective: Subjective: +odynophagia +nausea/retching Objective: Objective: D/w Dr. Bustamante earlier - EGD cancelled 2/2 neutropenia. D/w Dr. Mcelroy earlier - start IV Reglan. Vital Signs: Vital Signs Date Time Temp Pulse Resp B/P (MAP) Pulse Ox O2 Delivery O2 Flow Rate FiO2 06/21/16 11:24 Room Air 06/21/16 10:55 98.6 77 16 166/96 (119) 95 98.6 Labs: Laboratory Tests Test 06/21/16 03:05 White Blood Count 1.0 x10^3/uL Red Blood Count 3.53 x10^6/uL Hemoglobin 9.9 g/dL Hematocrit 28.8 % Mean Corpuscular Volume 82 fL Mean Corpuscular Hemoglobin 28 pg Mean Corpuscular Hemoglobin Concent 35 g/dL Red Cell Distribution Width 16.2 % Platelet Count 143 x10^3/uL Neutrophils (%) (Auto) 31 % Lymphocytes (%) (Auto) 22 % Monocytes (%) (Auto) 45 % Eosinophils (%) (Auto) 2 % Basophils (%) (Auto) 1 % Neutrophils # (Auto) 0.3 x10^3uL Lymphocytes # (Auto) 0.2 x10^3/uL Monocytes # (Auto) 0.4 x10^3/uL Eosinophils # (Auto) 0.0 x10^3/uL Basophils # (Auto) 0.0 x10^3/uL Prothrombin Time 14.5 SEC Prothromb Time International Ratio 1.2 PE: GEN: NAD, sitting on edge of bed, hoarse LUNGS: decreased HEART: RRR ABD: S/ND/NT NEURO/PSYCH: A & O 3 A/P: Odynophagia/dysphagia, n/v - possible radiation esophagitis w/ lung cancer Neutropenia -per oncology -- Continue IV PPI and Reglan, observe. ?empiric Diflucan - will review w/ Dr. Mcelroy. KELSI KNAPP June 21, 2016 12:10
[2016-06-21 13:36] LABS: ALBUMIN 2.7 g/dL (3.4-5.0); ALBUMIN/GLOBULIN RATIO 0.8 (1.0-1.7); CALCIUM 7.8 mg/dL (8.5-10.1); CREATININE 0.7 mg/dL (0.7-1.3); GFR 114.3; MAGNESIUM 1.9 mg/dL (1.8-2.4); PHOSPHORUS 2.7 mg/dL (2.6-4.7); TOTAL BILIRUBIN 0.5 mg/dL (0.2-1.0); TOTAL PROTEIN 6.2 g/dL (6.4-8.2)
[2016-06-21 13:42] LABS: POTASSIUM 2.8 mmol/L (3.5-5.1)
[2016-06-21] MEDS ORDERED: POTASSIUM CHLORIDE 20MEQ 50 ML IV SCH (14:00)
[2016-06-21] MEDS: POTASSIUM CHLORIDE 10MEQ 100 ML IV SCH ×6 (15:22→21:20)
[2016-06-21] MEDS: ENOXAPARIN 40 MG/0.4 ML SYRINGE. SQ SCH (16:44)
[2016-06-21] MEDS: TBO-FILGRASTIM 480 MCG/0.8 ML SYRINGE. SQ SCH (21:19)
--- NOTE | 2016-06-21 23:57 | CONS ---
DATE OF CONSULTATION: 06/21/2016 REFERRING PROVIDER: Dr. Coleman. REASON FOR CONSULTATION: Odynophagia, small cell lung cancer. HISTORY OF PRESENT ILLNESS: The patient is a 60-year-old male who was treated by my colleague, Dr. Polanco for his T4N3M0 stage 3B small cell lung cancer of the right lung. He has just completed the radiation portion of his combined chemoradiation for his treatment of the lung cancer. He received his third cycle of cisplatin/etoposide on 06/05/2016. He presents now with significant odynophagia, dysphagia, inability to maintain his pain or nutrition needs at home. He also was having significant cytopenias. He believes he may have gotten a pill stuck in his throat last week. PAST MEDICAL HISTORY: Small cell lung cancer, hypertension, hyperlipidemia, heart disease and pancreatitis. PAST SURGICAL HISTORY: PCI, gastric sleeve and right knee surgery. FAMILY HISTORY: Grandfather had some form of cancer. SOCIAL HISTORY: Denies any tobacco, alcohol or drug use. ALLERGIES: PENICILLIN, SOY. CURRENT MEDICATIONS: Reglan, labetalol, Compazine, Zofran, Protonix, Lovenox, fentanyl and morphine. REVIEW OF SYSTEMS: Ten point review of systems completed and unremarkable with the exception that mentioned in the HPI. PHYSICAL EXAMINATION: VITAL SIGNS: Temperature 98.1, pulse 97, respiratory rate 18, blood pressure 166/108, 97% O2 on room air. GENERAL: He is alert and oriented, fatigued, but in no acute distress. HEENT: Extraocular muscles are intact. Sclerae are without icterus. Mucous membranes are dry. CARDIOVASCULAR: Heart is regular in rhythm and rate. LUNGS: Wheezing bilaterally. ABDOMEN: Soft, nontender. EXTREMITIES: No edema. NEUROLOGIC: No focal deficits. SKIN: No rashes or petechiae. IMAGING AND LABORATORY DATA: WBC 1.0, hemoglobin 9.9, platelets 143, ANC 0.3. Electrolytes are pending. ASSESSMENT AND PLAN: The patient is a 60-year-old male with the following medical problems: 1. T4N3M0 stage 3B small cell carcinoma of the lung. Currently on combined chemoradiation given with curative intent. His radiation just finished. He received his third dose of cisplatin/etoposide on 06/05/2016. He would be due for his fourth cycle on 06/26/2016. His odynophagia and significant neutropenia are likely treatment related with time and count recovery the symptoms should improve. His last cycle of chemotherapy will be delayed until he fully recovers from these acute events. 2. Neutropenia, chemotherapy related. I am going to start Neupogen, which should be continued until his ANC is above 1.5. 3. Odynophagia, mucositis, treatment related. Radiation has been completed. GI is following. I would prefer to hold off on an EGD until his ANC recovers. I do think that with count recovery his symptoms will also improve and there may not be any need for the ED. He has been started on Reglan and pain management in addition to peripheral nutrition. Thank you for alerting us of his admission. Dr. Talbot will be covering this weekend if acute issues occur. Dr. Polanco will return on Friday. Discussed with Graciela Beach from GI. CHELLY PALAFOX DO DR: PEGGY/cecile JOB#: [id number] / [id number] DESIREE
[2016-06-22] MEDS: MORPHINE SULFATE 2 MG/ML DISP.SYRIN. IV PRN ×5 (01:10→17:01)
[2016-06-22 03:25] VITALS: BP 152/91
[2016-06-22 05:47] LABS: CALCIUM 7.8 mg/dL (8.5-10.1); CREATININE 0.6 mg/dL (0.7-1.3); GFR 136.5; MAGNESIUM 1.6 mg/dL (1.8-2.4); POTASSIUM 3.1 mmol/L (3.5-5.1)
[2016-06-22] MEDS: AMINO AC 3%/ELECTROLYTE/GLYCER 1,000 ML IV SCH ×2 (05:57→18:49)
[2016-06-22 07:00] VITALS: BP 161/95
[2016-06-22] MEDS: METOCLOPRAMIDE HCL 10 MG/2 ML VIAL. IV SCH ×4 (08:58→21:25)
[2016-06-22] MEDS: LABETALOL 20 MG/4 ML DISP.SYRIN. IVP PRN (08:58)
[2016-06-22] MEDS: PANTOPRAZOLE IV PUSH 40 MG VIAL. IVP SCH (08:58)
--- NOTE | 2016-06-22 10:53 | PDOC ---
PROGRESS NOTES Chief Complaint Chief Complaint 1. 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 NO EGD yet - tentative plans Friday BP high - labetolol prn on board Dw SWSW Lidocaine - not ready He even spits up ice chips PLAN: NPO Procalamine prn labetolol Will stay over weekend EGD plans tentative friday pending weekend course Vitals Vitals Vital Signs Date Time Temp Pulse Resp B/P (MAP) Pulse Ox O2 Delivery O2 Flow Rate FiO2 06/22/16 08:58 117 161/95 06/22/16 07:00 95.4 18 93 Room Air 95.4 Physical Exam General: Alert, Oriented X3, Cooperative, No acute distress Abdomen: Normal bowel sounds, Soft, No tenderness, No hepatosplenomegaly, No masses Extremities: No clubbing, No cyanosis, No edema, Normal pulses, No tenderness/ swelling Skin: No rashes, No breakdown, No significant lesion Labs LABS Laboratory Tests Test 06/22/16 04:54 Sodium Level 141 mmol/L (136-145) Potassium Level 3.1 mmol/L (3.5-5.1) Chloride Level 105 mmol/L (98-107) Carbon Dioxide Level 27 mmol/L (21-32) Anion Gap 9 (6-14) Blood Urea Nitrogen 14 mg/dL (8-26) Creatinine 0.6 mg/dL (0.7-1.3) Estimated GFR (Cockcroft-Gault) 136.5 Glucose Level 90 mg/dL (70-99) Calcium Level 7.8 mg/dL (8.5-10.1) Magnesium Level 1.6 mg/dL (1.8-2.4) Review of Systems Review of Systems per HPI, all else is neg Comment Review of Relevant I have reviewed the following items tra (where applicable) has been applied. Labs Laboratory Tests Test 06/21/16 03:05 06/22/16 04:54 White Blood Count 1.0 x10^3/uL (4.0-11.0) Red Blood Count 3.53 x10^6/uL (4.30-5.70) Hemoglobin 9.9 g/dL (13.0-17.5) Hematocrit 28.8 % (39.0-53.0) Mean Corpuscular Volume 82 fL (79-100) Mean Corpuscular Hemoglobin 28 pg (25-35) Mean Corpuscular Hemoglobin Concent 35 g/dL (31-37) Red Cell Distribution Width 16.2 % (11.5-14.5) Platelet Count 143 x10^3/uL (140-400) Neutrophils (%) (Auto) 31 % (31-73) Lymphocytes (%) (Auto) 22 % (24-48) Monocytes (%) (Auto) 45 % (0-9) Eosinophils (%) (Auto) 2 % (0-3) Basophils (%) (Auto) 1 % (0-3) Neutrophils # (Auto) 0.3 x10^3uL (1.8-7.7) Lymphocytes # (Auto) 0.2 x10^3/uL (1.0-4.8) Monocytes # (Auto) 0.4 x10^3/uL (0.0-1.1) Eosinophils # (Auto) 0.0 x10^3/uL (0.0-0.7) Basophils # (Auto) 0.0 x10^3/uL (0.0-0.2) Prothrombin Time 14.5 SEC (11.7-14.0) Prothromb Time International Ratio 1.2 (0.8-1.1) Sodium Level 146 mmol/L (136-145) 141 mmol/L (136-145) Potassium Level 2.8 mmol/L (3.5-5.1) 3.1 mmol/L (3.5-5.1) Chloride Level 107 mmol/L (98-107) 105 mmol/L (98-107) Carbon Dioxide Level 28 mmol/L (21-32) 27 mmol/L (21-32) Anion Gap 11 (6-14) 9 (6-14) Blood Urea Nitrogen 13 mg/dL (8-26) 14 mg/dL (8-26) Creatinine 0.7 mg/dL (0.7-1.3) 0.6 mg/dL (0.7-1.3) Estimated GFR (Cockcroft-Gault) 114.3 136.5 BUN/Creatinine Ratio 19 (6-20) Glucose Level 90 mg/dL (70-99) 90 mg/dL (70-99) Calcium Level 7.8 mg/dL (8.5-10.1) 7.8 mg/dL (8.5-10.1) Phosphorus Level 2.7 mg/dL (2.6-4.7) Magnesium Level 1.9 mg/dL (1.8-2.4) 1.6 mg/dL (1.8-2.4) Total Bilirubin 0.5 mg/dL (0.2-1.0) Aspartate Amino Transf (AST/SGOT) 17 U/L (15-37) Alanine Aminotransferase (ALT/SGPT) 17 U/L (16-63) Alkaline Phosphatase 49 U/L (46-116) Total Protein 6.2 g/dL (6.4-8.2) Albumin 2.7 g/dL (3.4-5.0) Albumin/Globulin Ratio 0.8 (1.0-1.7) Laboratory Tests Test 06/22/16 04:54 Sodium Level 141 mmol/L (136-145) Potassium Level 3.1 mmol/L (3.5-5.1) Chloride Level 105 mmol/L (98-107) Carbon Dioxide Level 27 mmol/L (21-32) Anion Gap 9 (6-14) Blood Urea Nitrogen 14 mg/dL (8-26) Creatinine 0.6 mg/dL (0.7-1.3) Estimated GFR (Cockcroft-Gault) 136.5 Glucose Level 90 mg/dL (70-99) Calcium Level 7.8 mg/dL (8.5-10.1) Magnesium Level 1.6 mg/dL (1.8-2.4) Medications Current Medications Amino Acids/ Glycerin/ Electrolytes 1,000 ml @ 80 mls/hr [id number] IV Last administered on 06/22/16 05:57; Start 06/20/16 at 16:00 Pantoprazole Sodium (Protonix Vial) 40 mg DAILYAC IVP Last administered on 08:58; Start 06/20/16 at 16:30 Enoxaparin Sodium (Lovenox 40mg Syringe) 40 mg Q24H SQ Last administered on 06/21 16:44; Start 06/20/16 at 16:00 Morphine Sulfate 2 mg PRN Q2HR PRN IV PAIN Last administered on 06/22/16 08:54 ; Start 06/20/16 at 15:30 Fentanyl Citrate (Fentanyl 2ml Vial) 50 mcg PRN Q2HR PRN IV PAIN; Start at 16:00 Ondansetron HCl (Zofran) 4 mg PRN Q6HRS PRN IV NAUSEA/VOMITING; Start 06/20/16 at 16:45 Prochlorperazine Edisylate (Compazine) 10 mg PRN Q6HRS PRN IV NAUSEA/VOMITING; Start 06/20/16 at 16:45 Prochlorperazine (Compazine) 25 mg PRN Q12HR PRN [place] NAUSEA/VOMITING; Start 06/20 at 16:45 Labetalol HCl (Normodyne) 10 mg PRN Q2HR PRN IVP HYPERTENSION, SEE COMMENTS Last administered on 06/22/16 08:58; Start 06/20/16 at 19:15 Metoclopramide HCl (Reglan) 5 mg QID IV Last administered on 06/22/16 08:58; Start 06/21/16 at 09:00 Tbo-Filgrastim (Granix) 480 mcg QHS SQ Last administered on 06/21/16 21:19; Start 06/21/16 at 21:00 Lidocaine HCl (Viscous Lidocaine) 15 ml PRN Q4HRS PRN SWSW MOUTH PAIN; Start at 09:30 Potassium Chloride 50 ml @ 50 mls/hr Q1H IV ; Start 06/21/16 at 14:00; Stop at 16:59; Status UNV Potassium Chloride 100 ml @ 100 mls/hr Q1H IV Last administered on 06/21/16 21 :20; Start 06/21/16 at 14:30; Stop 06/21/16 at 20:29; Status DC Active Scripts Active Tessalon Perle (Benzonatate) 100 Mg Capsule 100 Mg PO TID PRN Reported Atorvastatin Calcium 40 Mg Tablet 40 Mg PO HS Omeprazole 40 Mg Capsule.dr 40 Mg PO DAILYWSUP Nystatin 100,000 Unit/1 Ml Oral.susp 5 Ml PO QID Antacid Anti-Gas Liquid (Mag Hydrox/Al Hydrox/Simeth) 355 Ml Oral.susp 355 Ml PO TIDACHC Amlodipine Besylate 10 Mg Tablet 10 Mg PO DAILY Aspirin Ec (Aspirin) 81 Mg Tablet. 1 Tab PO DAILY Vitamin D3 (Cholecalciferol (Vitamin D3)) 5,000 Unit Tablet 1 Tab PO DAILY Coreg (Carvedilol) 25 Mg Tablet 1 Tab PO BID Lipitor (Atorvastatin Calcium) 40 Mg Tablet 40 Mg PO HS Metamucil Packet (Psyllium Seed (With Sugar)) 1 Each Packet 1 Each PO DAILY Calcium 250+D Tablet (Calcium Carbonate/Vitamin D3) 1 Each Tablet 1 Each PO BID Celebrex (Celecoxib) 200 Mg Capsule 200 Mg PO DAILY Vitals/I & O Vital Sign - Last 24 Hours 06/21/16 06/21/16 06/21/16 06/21/16 10:54 10:55 10:55 15:10 Temp 98.6 97.4 98.6 97.4 Pulse 91 77 83 Resp 16 18 B/P (MAP) 166/100 166/96 (119) 163/94 (117) Pulse Ox 95 92 O2 Delivery Room Air Room Air Room Air 06/21/16 06/21/16 06/21/16 06/21/16 15:22 18:34 19:04 19:15 Temp 98.1 98.1 Pulse 71 Resp 18 B/P (MAP) 148/86 (106) Pulse Ox 95 95 95 92 O2 Delivery Room Air Room Air Room Air 06/21/16 06/21/16 06/21/16 06/22/16 20:00 21:20 23:25 01:10 Temp 98.1 98.1 Pulse 80 Resp 16 18 16 B/P (MAP) 145/94 (111) Pulse Ox 94 O2 Delivery Room Air Room Air Room Air Room Air 06/22/16 06/22/16 06/22/16 06/22/16 03:25 06:02 06:32 07:00 Temp 97.9 95.4 97.9 95.4 Pulse 82 117 Resp 18 17 16 18 B/P (MAP) 152/91 (111) 161/95 (117) Pulse Ox 90 93 O2 Delivery Room Air Room Air Room Air Room Air 06/22/16 08:58 Pulse 117 B/P (MAP) 161/95 Intake and Output 06/21/16 06/21/16 06/22/16 15:00 23:00 07:00 Intake Total 200 ml 100 ml Output Total 300 ml Balance 200 ml -200 ml MIRZA TRINIDAD MD June 22, 2016 10:53
[2016-06-22 11:16] VITALS: BP 123/79
[2016-06-22 15:00] VITALS: BP 160/91
[2016-06-22] MEDS: POTASSIUM CHLORIDE 10MEQ 100 ML IV SCH ×4 (15:46→21:25)
[2016-06-22] MEDS: ENOXAPARIN 40 MG/0.4 ML SYRINGE. SQ SCH (16:48)
[2016-06-22 19:05] VITALS: BP 134/87
[2016-06-22] MEDS: TBO-FILGRASTIM 480 MCG/0.8 ML SYRINGE. SQ SCH (21:25)
[2016-06-22 23:56] VITALS: BP 158/93
[2016-06-23] MEDS: MORPHINE SULFATE 2 MG/ML DISP.SYRIN. IV PRN ×5 (01:02→21:27)
[2016-06-23 03:37] VITALS: BP 153/87
[2016-06-23 05:29] LABS: BASO % 0 % (0-3); EOS % 0 % (0-3); HEMATOCRIT 28.2 % (39.0-53.0); HEMOGLOBIN 9.8 g/dL (13.0-17.5); LYMPH # 0.5 x10^3/uL (1.0-4.8); LYMPH % 4 % (24-48); MEAN CORPUSCULAR HEMOGLOBIN 28 pg (25-35); MEAN CORPUSCULAR HGB CONC 35 g/dL (31-37); MEAN CORPUSCULAR VOLUME 80 fL (79-100); MONO % 13 % (0-9); NEUT % 83 % (31-73); PLATELET COUNT 241 x10^3/uL (140-400); RED CELL DISTRIBUTION WIDTH 15.9 % (11.5-14.5); WHITE BLOOD COUNT 11.9 x10^3/uL (4.0-11.0)
[2016-06-23 07:00] VITALS: BP 141/93
[2016-06-23] MEDS: PANTOPRAZOLE IV PUSH 40 MG VIAL. IVP SCH (08:56)
[2016-06-23] MEDS: METOCLOPRAMIDE HCL 10 MG/2 ML VIAL. IV SCH ×4 (08:56→21:26)
[2016-06-23] MEDS: AMINO AC 3%/ELECTROLYTE/GLYCER 1,000 ML IV SCH ×2 (08:58→22:38)
[2016-06-23 10:49] LABS: % BASOS 1 % (0-3); % EOS 2 % (0-5); NUCLEATED RBC 2
[2016-06-23 10:54] LABS: ANISOCYTOSIS SLIGHT; PLT ESTIMATE ADEQUATE (ADEQUATE); TOXIC GRANULATION SLIGHT
[2016-06-23 11:00] VITALS: BP 154/100
--- NOTE | 2016-06-23 13:06 | PDOC ---
G I PROGRESS NOTE Reason for Follow-up Odynophagia Subjective Swallowing problem persist/WBC normalized Physical Exam Lungs decreased BS CV S1 S2 ABD +BS, soft, nontender Review of Relevant I have reviewed the following items tra (where applicable) has been applied. Labs Laboratory Tests Test 06/22/16 04:54 06/23/16 04:20 Sodium Level 141 mmol/L (136-145) Potassium Level 3.1 mmol/L (3.5-5.1) 3.4 mmol/L (3.5-5.1) Chloride Level 105 mmol/L (98-107) Carbon Dioxide Level 27 mmol/L (21-32) Anion Gap 9 (6-14) Blood Urea Nitrogen 14 mg/dL (8-26) Creatinine 0.6 mg/dL (0.7-1.3) Estimated GFR (Cockcroft-Gault) 136.5 Glucose Level 90 mg/dL (70-99) Calcium Level 7.8 mg/dL (8.5-10.1) Magnesium Level 1.6 mg/dL (1.8-2.4) White Blood Count 11.9 x10^3/uL (4.0-11.0) Red Blood Count 3.50 x10^6/uL (4.30-5.70) Hemoglobin 9.8 g/dL (13.0-17.5) Hematocrit 28.2 % (39.0-53.0) Mean Corpuscular Volume 80 fL (79-100) Mean Corpuscular Hemoglobin 28 pg (25-35) Mean Corpuscular Hemoglobin Concent 35 g/dL (31-37) Red Cell Distribution Width 15.9 % (11.5-14.5) Platelet Count 241 x10^3/uL (140-400) Neutrophils (%) (Auto) 83 % (31-73) Lymphocytes (%) (Auto) 4 % (24-48) Monocytes (%) (Auto) 13 % (0-9) Eosinophils (%) (Auto) 0 % (0-3) Basophils (%) (Auto) 0 % (0-3) Neutrophils # (Auto) 9.9 x10^3uL (1.8-7.7) Lymphocytes # (Auto) 0.5 x10^3/uL (1.0-4.8) Monocytes # (Auto) 1.5 x10^3/uL (0.0-1.1) Eosinophils # (Auto) 0.0 x10^3/uL (0.0-0.7) Basophils # (Auto) 0.0 x10^3/uL (0.0-0.2) Segmented Neutrophils % 26 % (35-66) Band Neutrophils % 48 % (0-9) Lymphocytes % 6 % (24-48) Monocytes % 15 % (0-10) Eosinophils % 2 % (0-5) Basophils % 1 % (0-3) Metamyelocytes % 1 % (0-0) Myelocytes % 1 % (0-0) Nucleated Red Blood Cells 2 Toxic Granulation Slight Platelet Estimate Adequate (ADEQUATE) Anisocytosis Slight Laboratory Tests Test 06/23/16 04:20 White Blood Count 11.9 x10^3/uL (4.0-11.0) Red Blood Count 3.50 x10^6/uL (4.30-5.70) Hemoglobin 9.8 g/dL (13.0-17.5) Hematocrit 28.2 % (39.0-53.0) Mean Corpuscular Volume 80 fL (79-100) Mean Corpuscular Hemoglobin 28 pg (25-35) Mean Corpuscular Hemoglobin Concent 35 g/dL (31-37) Red Cell Distribution Width 15.9 % (11.5-14.5) Platelet Count 241 x10^3/uL (140-400) Neutrophils (%) (Auto) 83 % (31-73) Lymphocytes (%) (Auto) 4 % (24-48) Monocytes (%) (Auto) 13 % (0-9) Eosinophils (%) (Auto) 0 % (0-3) Basophils (%) (Auto) 0 % (0-3) Neutrophils # (Auto) 9.9 x10^3uL (1.8-7.7) Lymphocytes # (Auto) 0.5 x10^3/uL (1.0-4.8) Monocytes # (Auto) 1.5 x10^3/uL (0.0-1.1) Eosinophils # (Auto) 0.0 x10^3/uL (0.0-0.7) Basophils # (Auto) 0.0 x10^3/uL (0.0-0.2) Segmented Neutrophils % 26 % (35-66) Band Neutrophils % 48 % (0-9) Lymphocytes % 6 % (24-48) Monocytes % 15 % (0-10) Eosinophils % 2 % (0-5) Basophils % 1 % (0-3) Metamyelocytes % 1 % (0-0) Myelocytes % 1 % (0-0) Nucleated Red Blood Cells 2 Toxic Granulation Slight Platelet Estimate Adequate (ADEQUATE) Anisocytosis Slight Potassium Level 3.4 mmol/L (3.5-5.1) Medications Current Medications Amino Acids/ Glycerin/ Electrolytes 1,000 ml @ 80 mls/hr [id number] IV Last administered on 06/23/16 08:58; Start 06/20/16 at 16:00 Pantoprazole Sodium (Protonix Vial) 40 mg DAILYAC IVP Last administered on 08:56; Start 06/20/16 at 16:30 Enoxaparin Sodium (Lovenox 40mg Syringe) 40 mg Q24H SQ Last administered on 06/22 16:48; Start 06/20/16 at 16:00 Morphine Sulfate 2 mg PRN Q2HR PRN IV MILD PAIN Last administered on 06/23/16 08:56; Start 06/20/16 at 15:30 Fentanyl Citrate (Fentanyl 2ml Vial) 50 mcg PRN Q2HR PRN IV MODERATE-SEVERE PAIN; Start 06/20/16 at 16:00 Ondansetron HCl (Zofran) 4 mg PRN Q6HRS PRN IV NAUSEA/VOMITING 1ST CHOICE; Start 06/20/16 at 16:45 Prochlorperazine Edisylate (Compazine) 10 mg PRN Q6HRS PRN IV NAUSEA/VOMITING 2ND CHOICE; Start 06/20/16 at 16:45 Prochlorperazine (Compazine) 25 mg PRN Q12HR PRN [place] NAUSEA/VOMITING; Start 06/20 at 16:45 Labetalol HCl (Normodyne) 10 mg PRN Q2HR PRN IVP HYPERTENSION, SEE COMMENTS Last administered on 06/22/16 08:58; Start 06/20/16 at 19:15 Metoclopramide HCl (Reglan) 5 mg QID IV Last administered on 06/23/16 08:56; Start 06/21/16 at 09:00 Tbo-Filgrastim (Granix) 480 mcg QHS SQ Last administered on 06/22/16 21:25; Start 06/21/16 at 21:00; Stop 06/23/16 at 12:50; Status DC Lidocaine HCl (Viscous Lidocaine) 15 ml PRN Q4HRS PRN SWSW MOUTH PAIN; Start at 09:30 Potassium Chloride 50 ml @ 50 mls/hr Q1H IV ; Start 06/21/16 at 14:00; Stop at 16:59; Status UNV Potassium Chloride 100 ml @ 100 mls/hr Q1H IV Last administered on 06/21/16 21 :20; Start 06/21/16 at 14:30; Stop 06/21/16 at 20:29; Status DC Potassium Chloride 100 ml @ 100 mls/hr Q1H IV Last administered on 06/22/16 21 :25; Start 06/22/16 at 15:00; Stop 06/22/16 at 18:59; Status DC Potassium Chloride 100 ml @ 100 mls/hr Q1H IV ; Start 06/23/16 at 13:00; Stop at 16:59 Active Scripts Active Tessalon Perle (Benzonatate) 100 Mg Capsule 100 Mg PO TID PRN Reported Atorvastatin Calcium 40 Mg Tablet 40 Mg PO HS Omeprazole 40 Mg Capsule.dr 40 Mg PO DAILYWSUP Nystatin 100,000 Unit/1 Ml Oral.susp 5 Ml PO QID Antacid Anti-Gas Liquid (Mag Hydrox/Al Hydrox/Simeth) 355 Ml Oral.susp 355 Ml PO TIDACHC Amlodipine Besylate 10 Mg Tablet 10 Mg PO DAILY Aspirin Ec (Aspirin) 81 Mg Tablet.dr 1 Tab PO DAILY Vitamin D3 (Cholecalciferol (Vitamin D3)) 5,000 Unit Tablet 1 Tab PO DAILY Coreg (Carvedilol) 25 Mg Tablet 1 Tab PO BID Lipitor (Atorvastatin Calcium) 40 Mg Tablet 40 Mg PO HS Metamucil Packet (Psyllium Seed (With Sugar)) 1 Each Packet 1 Each PO DAILY Calcium 250+D Tablet (Calcium Carbonate/Vitamin D3) 1 Each Tablet 1 Each PO BID Celebrex (Celecoxib) 200 Mg Capsule 200 Mg PO DAILY Vitals/I & O Vital Sign - Last 24 Hours 06/22/16 06/22/16 06/22/16 06/22/16 15:00 19:05 20:00 23:56 Temp 98.1 98.2 97.9 98.1 98.2 97.9 Pulse 114 86 84 Resp 18 16 16 B/P (MAP) 160/91 (114) 134/87 (103) 158/93 (114) Pulse Ox 94 94 90 O2 Delivery Room Air Room Air Room Air Room Air 06/23/16 06/23/16 06/23/16 06/23/16 01:02 01:30 03:37 03:50 Temp 98.1 98.1 Pulse 80 Resp 17 19 16 19 B/P (MAP) 153/87 (109) Pulse Ox 92 O2 Delivery Room Air Room Air Room Air 06/23/16 06/23/16 06/23/16 06/23/16 04:20 07:00 08:00 11:00 Temp 97.3 97.9 97.3 97.9 Pulse 82 93 Resp 20 20 B/P (MAP) 141/93 (109) 154/100 (118) Pulse Ox 98 95 O2 Delivery Room Air Room Air Room Air Room Air Intake and Output 06/22/16 06/22/16 06/23/16 15:00 23:00 07:00 Intake Total 0 ml 0 ml Balance 0 ml 0 ml Problem List Odynophagia- s/p xrt, etiology to be determined. Infectious and/or radiation esophagitis lead differential Plan egd with possible bx/dilation in am. risks/benefits discussed with patient who is willing to proceed TANIKA HERNANDEZ MD June 23, 2016 13:06
--- NOTE | 2016-06-23 13:46 | PDOC ---
PROGRESS NOTES Chief Complaint Chief Complaint 1. 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 Ex smoker History of Present Illness History of Present Illness still painful and difficulty swallowing Hard to swallow own saliva WBC up to 11 now - s/p Filgastrem by heme onc Dw S[facility] Lidocaine - having difficulty K 3.1 - better PLAN: Cont NPO COnt Procalamine prn labetolol Kcl 20 x 2 (morejon) IV REcheck WBC Thoughts about EGD to r.o other obstructive path Pt considering if recommended by experts Vitals Vitals Vital Signs Date Time Temp Pulse Resp B/P (MAP) Pulse Ox O2 Delivery O2 Flow Rate FiO2 06/23/16 11:00 97.9 93 20 154/100 (118) 95 Room Air 97.9 Physical Exam General: Alert, Oriented X3, Cooperative, No acute distress Abdomen: Normal bowel sounds, Soft, No tenderness, No hepatosplenomegaly, No masses Extremities: No clubbing, No cyanosis, No edema, Normal pulses, No tenderness/ swelling Skin: No rashes, No breakdown, No significant lesion Labs LABS Laboratory Tests Test 06/23/16 04:20 White Blood Count 11.9 x10^3/uL (4.0-11.0) Red Blood Count 3.50 x10^6/uL (4.30-5.70) Hemoglobin 9.8 g/dL (13.0-17.5) Hematocrit 28.2 % (39.0-53.0) Mean Corpuscular Volume 80 fL (79-100) Mean Corpuscular Hemoglobin 28 pg (25-35) Mean Corpuscular Hemoglobin Concent 35 g/dL (31-37) Red Cell Distribution Width 15.9 % (11.5-14.5) Platelet Count 241 x10^3/uL (140-400) Neutrophils (%) (Auto) 83 % (31-73) Lymphocytes (%) (Auto) 4 % (24-48) Monocytes (%) (Auto) 13 % (0-9) Eosinophils (%) (Auto) 0 % (0-3) Basophils (%) (Auto) 0 % (0-3) Neutrophils # (Auto) 9.9 x10^3uL (1.8-7.7) Lymphocytes # (Auto) 0.5 x10^3/uL (1.0-4.8) Monocytes # (Auto) 1.5 x10^3/uL (0.0-1.1) Eosinophils # (Auto) 0.0 x10^3/uL (0.0-0.7) Basophils # (Auto) 0.0 x10^3/uL (0.0-0.2) Segmented Neutrophils % 26 % (35-66) Band Neutrophils % 48 % (0-9) Lymphocytes % 6 % (24-48) Monocytes % 15 % (0-10) Eosinophils % 2 % (0-5) Basophils % 1 % (0-3) Metamyelocytes % 1 % (0-0) Myelocytes % 1 % (0-0) Nucleated Red Blood Cells 2 Toxic Granulation Slight Platelet Estimate Adequate (ADEQUATE) Anisocytosis Slight Potassium Level 3.4 mmol/L (3.5-5.1) Review of Systems Review of Systems dysphagia and odynophagia, all else is neg Comment Review of Relevant I have reviewed the following items tra (where applicable) has been applied. Labs Laboratory Tests Test 06/22/16 04:54 06/23/16 04:20 Sodium Level 141 mmol/L (136-145) Potassium Level 3.1 mmol/L (3.5-5.1) 3.4 mmol/L (3.5-5.1) Chloride Level 105 mmol/L (98-107) Carbon Dioxide Level 27 mmol/L (21-32) Anion Gap 9 (6-14) Blood Urea Nitrogen 14 mg/dL (8-26) Creatinine 0.6 mg/dL (0.7-1.3) Estimated GFR (Cockcroft-Gault) 136.5 Glucose Level 90 mg/dL (70-99) Calcium Level 7.8 mg/dL (8.5-10.1) Magnesium Level 1.6 mg/dL (1.8-2.4) White Blood Count 11.9 x10^3/uL (4.0-11.0) Red Blood Count 3.50 x10^6/uL (4.30-5.70) Hemoglobin 9.8 g/dL (13.0-17.5) Hematocrit 28.2 % (39.0-53.0) Mean Corpuscular Volume 80 fL (79-100) Mean Corpuscular Hemoglobin 28 pg (25-35) Mean Corpuscular Hemoglobin Concent 35 g/dL (31-37) Red Cell Distribution Width 15.9 % (11.5-14.5) Platelet Count 241 x10^3/uL (140-400) Neutrophils (%) (Auto) 83 % (31-73) Lymphocytes (%) (Auto) 4 % (24-48) Monocytes (%) (Auto) 13 % (0-9) Eosinophils (%) (Auto) 0 % (0-3) Basophils (%) (Auto) 0 % (0-3) Neutrophils # (Auto) 9.9 x10^3uL (1.8-7.7) Lymphocytes # (Auto) 0.5 x10^3/uL (1.0-4.8) Monocytes # (Auto) 1.5 x10^3/uL (0.0-1.1) Eosinophils # (Auto) 0.0 x10^3/uL (0.0-0.7) Basophils # (Auto) 0.0 x10^3/uL (0.0-0.2) Segmented Neutrophils % 26 % (35-66) Band Neutrophils % 48 % (0-9) Lymphocytes % 6 % (24-48) Monocytes % 15 % (0-10) Eosinophils % 2 % (0-5) Basophils % 1 % (0-3) Metamyelocytes % 1 % (0-0) Myelocytes % 1 % (0-0) Nucleated Red Blood Cells 2 Toxic Granulation Slight Platelet Estimate Adequate (ADEQUATE) Anisocytosis Slight Laboratory Tests Test 06/23/16 04:20 White Blood Count 11.9 x10^3/uL (4.0-11.0) Red Blood Count 3.50 x10^6/uL (4.30-5.70) Hemoglobin 9.8 g/dL (13.0-17.5) Hematocrit 28.2 % (39.0-53.0) Mean Corpuscular Volume 80 fL (79-100) Mean Corpuscular Hemoglobin 28 pg (25-35) Mean Corpuscular Hemoglobin Concent 35 g/dL (31-37) Red Cell Distribution Width 15.9 % (11.5-14.5) Platelet Count 241 x10^3/uL (140-400) Neutrophils (%) (Auto) 83 % (31-73) Lymphocytes (%) (Auto) 4 % (24-48) Monocytes (%) (Auto) 13 % (0-9) Eosinophils (%) (Auto) 0 % (0-3) Basophils (%) (Auto) 0 % (0-3) Neutrophils # (Auto) 9.9 x10^3uL (1.8-7.7) Lymphocytes # (Auto) 0.5 x10^3/uL (1.0-4.8) Monocytes # (Auto) 1.5 x10^3/uL (0.0-1.1) Eosinophils # (Auto) 0.0 x10^3/uL (0.0-0.7) Basophils # (Auto) 0.0 x10^3/uL (0.0-0.2) Segmented Neutrophils % 26 % (35-66) Band Neutrophils % 48 % (0-9) Lymphocytes % 6 % (24-48) Monocytes % 15 % (0-10) Eosinophils % 2 % (0-5) Basophils % 1 % (0-3) Metamyelocytes % 1 % (0-0) Myelocytes % 1 % (0-0) Nucleated Red Blood Cells 2 Toxic Granulation Slight Platelet Estimate Adequate (ADEQUATE) Anisocytosis Slight Potassium Level 3.4 mmol/L (3.5-5.1) Medications Current Medications Amino Acids/ Glycerin/ Electrolytes 1,000 ml @ 80 mls/hr [id number] IV Last administered on 06/23/16 08:58; Start 06/20/16 at 16:00 Pantoprazole Sodium (Protonix Vial) 40 mg DAILYAC IVP Last administered on 08:56; Start 06/20/16 at 16:30 Enoxaparin Sodium (Lovenox 40mg Syringe) 40 mg Q24H SQ Last administered on 06/22 16:48; Start 06/20/16 at 16:00 Morphine Sulfate 2 mg PRN Q2HR PRN IV MILD PAIN Last administered on 06/23/16 08:56; Start 06/20/16 at 15:30 Fentanyl Citrate (Fentanyl 2ml Vial) 50 mcg PRN Q2HR PRN IV MODERATE-SEVERE PAIN; Start 06/20/16 at 16:00 Ondansetron HCl (Zofran) 4 mg PRN Q6HRS PRN IV NAUSEA/VOMITING 1ST CHOICE; Start 06/20/16 at 16:45 Prochlorperazine Edisylate (Compazine) 10 mg PRN Q6HRS PRN IV NAUSEA/VOMITING 2ND CHOICE; Start 06/20/16 at 16:45 Prochlorperazine (Compazine) 25 mg PRN Q12HR PRN [place] NAUSEA/VOMITING; Start 06/20 at 16:45 Labetalol HCl (Normodyne) 10 mg PRN Q2HR PRN IVP HYPERTENSION, SEE COMMENTS Last administered on 06/22/16 08:58; Start 06/20/16 at 19:15 Metoclopramide HCl (Reglan) 5 mg QID IV Last administered on 06/23/16 08:56; Start 06/21/16 at 09:00 Tbo-Filgrastim (Granix) 480 mcg QHS SQ Last administered on 06/22/16 21:25; Start 06/21/16 at 21:00; Stop 06/23/16 at 12:50; Status DC Lidocaine HCl (Viscous Lidocaine) 15 ml PRN Q4HRS PRN SWSW MOUTH PAIN; Start at 09:30 Potassium Chloride 50 ml @ 50 mls/hr Q1H IV ; Start 06/21/16 at 14:00; Stop at 16:59; Status UNV Potassium Chloride 100 ml @ 100 mls/hr Q1H IV Last administered on 06/21/16 21 :20; Start 06/21/16 at 14:30; Stop 06/21/16 at 20:29; Status DC Potassium Chloride 100 ml @ 100 mls/hr Q1H IV Last administered on 06/22/16 21 :25; Start 06/22/16 at 15:00; Stop 06/22/16 at 18:59; Status DC Potassium Chloride 100 ml @ 100 mls/hr Q1H IV ; Start 06/23/16 at 13:00; Stop at 16:59 Active Scripts Active Tessalon Perle (Benzonatate) 100 Mg Capsule 100 Mg PO TID PRN Reported Atorvastatin Calcium 40 Mg Tablet 40 Mg PO HS Omeprazole 40 Mg Capsule.dr 40 Mg PO DAILYWSUP Nystatin 100,000 Unit/1 Ml Oral.susp 5 Ml PO QID Antacid Anti-Gas Liquid (Mag Hydrox/Al Hydrox/Simeth) 355 Ml Oral.susp 355 Ml PO TIDACHC Amlodipine Besylate 10 Mg Tablet 10 Mg PO DAILY Aspirin Ec (Aspirin) 81 Mg Tablet.dr 1 Tab PO DAILY Vitamin D3 (Cholecalciferol (Vitamin D3)) 5,000 Unit Tablet 1 Tab PO DAILY Coreg (Carvedilol) 25 Mg Tablet 1 Tab PO BID Lipitor (Atorvastatin Calcium) 40 Mg Tablet 40 Mg PO HS Metamucil Packet (Psyllium Seed (With Sugar)) 1 Each Packet 1 Each PO DAILY Calcium 250+D Tablet (Calcium Carbonate/Vitamin D3) 1 Each Tablet 1 Each PO BID Celebrex (Celecoxib) 200 Mg Capsule 200 Mg PO DAILY Vitals/I & O Vital Sign - Last 24 Hours 06/22/16 06/22/16 06/22/16 06/22/16 15:00 19:05 20:00 23:56 Temp 98.1 98.2 97.9 98.1 98.2 97.9 Pulse 114 86 84 Resp 18 16 16 B/P (MAP) 160/91 (114) 134/87 (103) 158/93 (114) Pulse Ox 94 94 90 O2 Delivery Room Air Room Air Room Air Room Air 06/23/16 06/23/16 06/23/16 06/23/16 01:02 01:30 03:37 03:50 Temp 98.1 98.1 Pulse 80 Resp 17 19 16 19 B/P (MAP) 153/87 (109) Pulse Ox 92 O2 Delivery Room Air Room Air Room Air 06/23/16 06/23/16 06/23/16 06/23/16 04:20 07:00 08:00 11:00 Temp 97.3 97.9 97.3 97.9 Pulse 82 93 Resp 20 20 B/P (MAP) 141/93 (109) 154/100 (118) Pulse Ox 98 95 O2 Delivery Room Air Room Air Room Air Room Air Intake and Output 06/22/16 06/22/16 06/23/16 15:00 23:00 07:00 Intake Total 0 ml 0 ml Balance 0 ml 0 ml MIRZA TRINIDAD MD June 23, 2016 13:46
[2016-06-23] MEDS: POTASSIUM CHLORIDE 10MEQ 100 ML IV SCH ×4 (14:31→18:27)
[2016-06-23 15:00] VITALS: BP 154/96
[2016-06-23] MEDS: ENOXAPARIN 40 MG/0.4 ML SYRINGE. SQ SCH (15:58)
[2016-06-23 19:56] VITALS: BP 152/82
[2016-06-23 23:10] VITALS: BP 142/88
[2016-06-24] MEDS: MORPHINE SULFATE 2 MG/ML DISP.SYRIN. IV PRN ×2 (02:56→16:56)
[2016-06-24 03:20] VITALS: BP 145/98
[2016-06-24 05:27] LABS: BASO % 0 % (0-3); EOS % 0 % (0-3); HEMATOCRIT 27.9 % (39.0-53.0); HEMOGLOBIN 9.4 g/dL (13.0-17.5); LYMPH # 0.6 x10^3/uL (1.0-4.8); LYMPH % 4 % (24-48); MEAN CORPUSCULAR HEMOGLOBIN 28 pg (25-35); MEAN CORPUSCULAR HGB CONC 34 g/dL (31-37); MEAN CORPUSCULAR VOLUME 82 fL (79-100); MONO % 13 % (0-9); NEUT % 83 % (31-73); PLATELET COUNT 235 x10^3/uL (140-400); RED BLOOD COUNT 3.42 x10^6/uL (4.30-5.70); RED CELL DISTRIBUTION WIDTH 16.6 % (11.5-14.5); WHITE BLOOD COUNT 14.2 x10^3/uL (4.0-11.0)
[2016-06-24 05:38] LABS: CALCIUM 7.9 mg/dL (8.5-10.1); CREATININE 0.6 mg/dL (0.7-1.3); GFR 136.5; MAGNESIUM 1.7 mg/dL (1.8-2.4); POTASSIUM 3.5 mmol/L (3.5-5.1)
[2016-06-24 07:00] VITALS: BP 151/102
[2016-06-24] MEDS: AMINO AC 3%/ELECTROLYTE/GLYCER 1,000 ML IV SCH ×2 (07:30→20:31)
[2016-06-24] MEDS: METOCLOPRAMIDE HCL 10 MG/2 ML VIAL. IV SCH ×4 (07:53→21:00)
[2016-06-24] MEDS: PANTOPRAZOLE IV PUSH 40 MG VIAL. IVP SCH (07:54)
--- NOTE | 2016-06-24 09:01 | PDOC ---
PROGRESS NOTES Subjective Subjective c/c - f/u of T4N3M0 stage 3B small cell carcinoma of the lung ROS - odynophagia better Objective Objective Vital Signs Date Time Temp Pulse Resp B/P (MAP) Pulse Ox O2 Delivery O2 Flow Rate FiO2 06/24/16 08:00 Room Air 06/24/16 07:00 98.0 78 20 151/102 (118) 92 98.0 Intake and Output 06/24/16 07:00 Intake Total 0 ml Balance 0 ml Intake Oral 0 ml # Voids 5 Physical Exam Heart: Normal S1, Normal S2 General: Alert, Oriented X3 Lungs: Clear to auscultation Neuro: Normal speech Psych/Mental Status: Mental status NL Assessment Assessment ASSESSMENT AND PLAN: The patient is a 60-year-old male with the following medical problems: 1. T4N3M0 stage 3B small cell carcinoma of the lung. Currently on combined chemoradiation given with curative intent. His radiation just finished. He received his third dose of cisplatin/etoposide on 06/05/2016. He would be due for his fourth cycle on 06/26/2016. His odynophagia and significant neutropenia are likely treatment related with time and count recovery the symptoms should improve. His last cycle of chemotherapy will be delayed until he fully recovers from these acute events. 2. Neutropenia, chemotherapy related. resolved s/p Neupogen. 3. Odynophagia, mucositis, treatment related. Radiation has been completed. GI is following. f/u wit me in 1 week. Comment Review of Relevant I have reviewed the following items tra (where applicable) has been applied. Labs Laboratory Tests Test 06/23/16 04:20 06/24/16 04:44 06/24/16 04:45 White Blood Count 11.9 x10^3/uL (4.0-11.0) 14.2 x10^3/uL (4.0-11.0) Red Blood Count 3.50 x10^6/uL (4.30-5.70) 3.42 x10^6/uL (4.30-5.70) Hemoglobin 9.8 g/dL (13.0-17.5) 9.4 g/dL (13.0-17.5) Hematocrit 28.2 % (39.0-53.0) 27.9 % (39.0-53.0) Mean Corpuscular Volume 80 fL (79-100) 82 fL (79-100) Mean Corpuscular Hemoglobin 28 pg (25-35) 28 pg (25-35) Mean Corpuscular Hemoglobin Concent 35 g/dL (31-37) 34 g/dL (31-37) Red Cell Distribution Width 15.9 % (11.5-14.5) 16.6 % (11.5-14.5) Platelet Count 241 x10^3/uL (140-400) 235 x10^3/uL (140-400) Neutrophils (%) (Auto) 83 % (31-73) 83 % (31-73) Lymphocytes (%) (Auto) 4 % (24-48) 4 % (24-48) Monocytes (%) (Auto) 13 % (0-9) 13 % (0-9) Eosinophils (%) (Auto) 0 % (0-3) 0 % (0-3) Basophils (%) (Auto) 0 % (0-3) 0 % (0-3) Neutrophils # (Auto) 9.9 x10^3uL (1.8-7.7) 11.7 x10^3uL (1.8-7.7) Lymphocytes # (Auto) 0.5 x10^3/uL (1.0-4.8) 0.6 x10^3/uL (1.0-4.8) Monocytes # (Auto) 1.5 x10^3/uL (0.0-1.1) 1.8 x10^3/uL (0.0-1.1) Eosinophils # (Auto) 0.0 x10^3/uL (0.0-0.7) 0.0 x10^3/uL (0.0-0.7) Basophils # (Auto) 0.0 x10^3/uL (0.0-0.2) 0.0 x10^3/uL (0.0-0.2) Segmented Neutrophils % 26 % (35-66) Band Neutrophils % 48 % (0-9) Lymphocytes % 6 % (24-48) Monocytes % 15 % (0-10) Eosinophils % 2 % (0-5) Basophils % 1 % (0-3) Metamyelocytes % 1 % (0-0) Myelocytes % 1 % (0-0) Nucleated Red Blood Cells 2 Toxic Granulation Slight Platelet Estimate Adequate (ADEQUATE) Anisocytosis Slight Potassium Level 3.4 mmol/L (3.5-5.1) 3.5 mmol/L (3.5-5.1) Sodium Level 140 mmol/L (136-145) Chloride Level 104 mmol/L (98-107) Carbon Dioxide Level 25 mmol/L (21-32) Anion Gap 11 (6-14) Blood Urea Nitrogen 11 mg/dL (8-26) Creatinine 0.6 mg/dL (0.7-1.3) Estimated GFR (Cockcroft-Gault) 136.5 Glucose Level 81 mg/dL (70-99) Calcium Level 7.9 mg/dL (8.5-10.1) Magnesium Level 1.7 mg/dL (1.8-2.4) Laboratory Tests Test 06/24/16 04:44 06/24/16 04:45 Sodium Level 140 mmol/L (136-145) Potassium Level 3.5 mmol/L (3.5-5.1) Chloride Level 104 mmol/L (98-107) Carbon Dioxide Level 25 mmol/L (21-32) Anion Gap 11 (6-14) Blood Urea Nitrogen 11 mg/dL (8-26) Creatinine 0.6 mg/dL (0.7-1.3) Estimated GFR (Cockcroft-Gault) 136.5 Glucose Level 81 mg/dL (70-99) Calcium Level 7.9 mg/dL (8.5-10.1) Magnesium Level 1.7 mg/dL (1.8-2.4) White Blood Count 14.2 x10^3/uL (4.0-11.0) Red Blood Count 3.42 x10^6/uL (4.30-5.70) Hemoglobin 9.4 g/dL (13.0-17.5) Hematocrit 27.9 % (39.0-53.0) Mean Corpuscular Volume 82 fL (79-100) Mean Corpuscular Hemoglobin 28 pg (25-35) Mean Corpuscular Hemoglobin Concent 34 g/dL (31-37) Red Cell Distribution Width 16.6 % (11.5-14.5) Platelet Count 235 x10^3/uL (140-400) Neutrophils (%) (Auto) 83 % (31-73) Lymphocytes (%) (Auto) 4 % (24-48) Monocytes (%) (Auto) 13 % (0-9) Eosinophils (%) (Auto) 0 % (0-3) Basophils (%) (Auto) 0 % (0-3) Neutrophils # (Auto) 11.7 x10^3uL (1.8-7.7) Lymphocytes # (Auto) 0.6 x10^3/uL (1.0-4.8) Monocytes # (Auto) 1.8 x10^3/uL (0.0-1.1) Eosinophils # (Auto) 0.0 x10^3/uL (0.0-0.7) Basophils # (Auto) 0.0 x10^3/uL (0.0-0.2) Medications Current Medications Amino Acids/ Glycerin/ Electrolytes 1,000 ml @ 80 mls/hr [id number] IV Last administered on 06/23/16 22:38; Start 06/20/16 at 16:00 Pantoprazole Sodium (Protonix Vial) 40 mg DAILYAC IVP Last administered on 07:54; Start 06/20/16 at 16:30 Enoxaparin Sodium (Lovenox 40mg Syringe) 40 mg Q24H SQ Last administered on 06/23 15:58; Start 06/20/16 at 16:00 Morphine Sulfate 2 mg PRN Q2HR PRN IV MILD PAIN Last administered on 06/24/16 02:56; Start 06/20/16 at 15:30 Fentanyl Citrate (Fentanyl 2ml Vial) 50 mcg PRN Q2HR PRN IV MODERATE-SEVERE PAIN; Start 06/20/16 at 16:00 Ondansetron HCl (Zofran) 4 mg PRN Q6HRS PRN IV NAUSEA/VOMITING 1ST CHOICE; Start 06/20/16 at 16:45 Prochlorperazine Edisylate (Compazine) 10 mg PRN Q6HRS PRN IV NAUSEA/VOMITING 2ND CHOICE; Start 06/20/16 at 16:45 Prochlorperazine (Compazine) 25 mg PRN Q12HR PRN PA NAUSEA/VOMITING; Start 06/20 at 16:45 Labetalol HCl (Normodyne) 10 mg PRN Q2HR PRN IVP HYPERTENSION, SEE COMMENTS Last administered on 06/22/16 08:58; Start 06/20/16 at 19:15 Metoclopramide HCl (Reglan) 5 mg QID IV Last administered on 06/24/16 07:53; Start 06/21/16 at 09:00 Tbo-Filgrastim (Granix) 480 mcg QHS SQ Last administered on 06/22/16 21:25; Start 06/21/16 at 21:00; Stop 06/23/16 at 12:50; Status DC Lidocaine HCl (Viscous Lidocaine) 15 ml PRN Q4HRS PRN SWSW MOUTH PAIN; Start at 09:30 Potassium Chloride 50 ml @ 50 mls/hr Q1H IV ; Start 06/21/16 at 14:00; Stop at 16:59; Status UNV Potassium Chloride 100 ml @ 100 mls/hr Q1H IV Last administered on 06/21/16 21 :20; Start 06/21/16 at 14:30; Stop 06/21/16 at 20:29; Status DC Potassium Chloride 100 ml @ 100 mls/hr Q1H IV Last administered on 06/22/16 21 :25; Start 06/22/16 at 15:00; Stop 06/22/16 at 18:59; Status DC Potassium Chloride 100 ml @ 100 mls/hr Q1H IV Last administered on 06/23/16 18 :27; Start 06/23/16 at 13:00; Stop 06/23/16 at 16:59; Status DC Active Scripts Active Tessalon Perle (Benzonatate) 100 Mg Capsule 100 Mg PO TID PRN Reported Atorvastatin Calcium 40 Mg Tablet 40 Mg PO HS Omeprazole 40 Mg Capsule.dr 40 Mg PO DAILYWSUP Nystatin 100,000 Unit/1 Ml Oral.susp 5 Ml PO QID Antacid Anti-Gas Liquid (Mag Hydrox/Al Hydrox/Simeth) 355 Ml Oral.susp 355 Ml PO TIDACHC Amlodipine Besylate 10 Mg Tablet 10 Mg PO DAILY Aspirin Ec (Aspirin) 81 Mg Tablet.dr 1 Tab PO DAILY Vitamin D3 (Cholecalciferol (Vitamin D3)) 5,000 Unit Tablet 1 Tab PO DAILY Coreg (Carvedilol) 25 Mg Tablet 1 Tab PO BID Lipitor (Atorvastatin Calcium) 40 Mg Tablet 40 Mg PO HS Metamucil Packet (Psyllium Seed (With Sugar)) 1 Each Packet 1 Each PO DAILY Calcium 250+D Tablet (Calcium Carbonate/Vitamin D3) 1 Each Tablet 1 Each PO BID Celebrex (Celecoxib) 200 Mg Capsule 200 Mg PO DAILY Vitals/I & O Vital Sign - Last 24 Hours 06/23/16 06/23/16 06/23/16 06/23/16 11:00 15:00 19:56 20:00 Temp 97.9 97.7 98.2 97.9 97.7 98.2 Pulse 93 84 81 Resp 20 20 16 B/P (MAP) 154/100 (118) 154/96 (115) 152/82 (105) Pulse Ox 95 90 94 O2 Delivery Room Air Room Air Room Air Room Air 06/23/16 06/23/16 06/23/16 06/24/16 21:27 21:55 23:10 02:56 Temp 97.9 97.9 Pulse 76 Resp 16 15 16 16 B/P (MAP) 142/88 (106) Pulse Ox 93 O2 Delivery Room Air Room Air 06/24/16 06/24/16 06/24/16 06/24/16 03:20 03:25 07:00 08:00 Temp 97.9 98.0 97.9 98.0 Pulse 79 78 Resp 16 20 B/P (MAP) 145/98 (114) 151/102 (118) Pulse Ox 92 92 O2 Delivery Room Air Room Air Room Air Room Air Intake and Output 06/23/16 06/23/16 06/24/16 15:00 23:00 07:00 Intake Total 0 ml Balance 0 ml JEWELS STUART MD June 24, 2016 09:01
[2016-06-24 11:00] VITALS: BP 146/89
--- NOTE | 2016-06-24 11:32 | PDOC ---
PROGRESS NOTES Chief Complaint Chief Complaint 1. 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 Ex smoker History of Present Illness History of Present Illness Mr. Blair was lying in bed in NAD when we saw him. He is still having pain and difficulty with swallowing Vitals Vitals Vital Signs Date Time Temp Pulse Resp B/P (MAP) Pulse Ox O2 Delivery O2 Flow Rate FiO2 06/24/16 11:00 97.9 73 20 146/89 (108) 96 Room Air 97.9 Physical Exam General: Alert, Oriented X3 Heart: Normal S1, Normal S2 Lungs: Clear Abdomen: Normal bowel sounds, Soft, No tenderness, No hepatosplenomegaly, No masses Extremities: No clubbing, No cyanosis, No edema, Normal pulses, No tenderness/ swelling Skin: No rashes, No breakdown, No significant lesion Labs LABS Laboratory Tests Test 06/24/16 04:44 06/24/16 04:45 Sodium Level 140 mmol/L (136-145) Potassium Level 3.5 mmol/L (3.5-5.1) Chloride Level 104 mmol/L (98-107) Carbon Dioxide Level 25 mmol/L (21-32) Anion Gap 11 (6-14) Blood Urea Nitrogen 11 mg/dL (8-26) Creatinine 0.6 mg/dL (0.7-1.3) Estimated GFR (Cockcroft-Gault) 136.5 Glucose Level 81 mg/dL (70-99) Calcium Level 7.9 mg/dL (8.5-10.1) Magnesium Level 1.7 mg/dL (1.8-2.4) White Blood Count 14.2 x10^3/uL (4.0-11.0) Red Blood Count 3.42 x10^6/uL (4.30-5.70) Hemoglobin 9.4 g/dL (13.0-17.5) Hematocrit 27.9 % (39.0-53.0) Mean Corpuscular Volume 82 fL (79-100) Mean Corpuscular Hemoglobin 28 pg (25-35) Mean Corpuscular Hemoglobin Concent 34 g/dL (31-37) Red Cell Distribution Width 16.6 % (11.5-14.5) Platelet Count 235 x10^3/uL (140-400) Neutrophils (%) (Auto) 83 % (31-73) Lymphocytes (%) (Auto) 4 % (24-48) Monocytes (%) (Auto) 13 % (0-9) Eosinophils (%) (Auto) 0 % (0-3) Basophils (%) (Auto) 0 % (0-3) Neutrophils # (Auto) 11.7 x10^3uL (1.8-7.7) Lymphocytes # (Auto) 0.6 x10^3/uL (1.0-4.8) Monocytes # (Auto) 1.8 x10^3/uL (0.0-1.1) Eosinophils # (Auto) 0.0 x10^3/uL (0.0-0.7) Basophils # (Auto) 0.0 x10^3/uL (0.0-0.2) Review of Systems Review of Systems General: denies weakness GI: pain with swallowing, denies N/V/D/C, denies bloody mucus/vomit Assessment and Plan Assessmemt and Plan Assessment: 1. 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 Ex smoker Plan: -Patient is considering EGD per GI to assess for stricture and possible dilation -Follow closely with GI -Recheck AM labs -PT/OT as necessary -Subspecialty input appreciated -Continue chemo on 06/26 if Onc agrees Problems: Comment Review of Relevant I have reviewed the following items tra (where applicable) has been applied. Labs Laboratory Tests Test 06/23/16 04:20 06/24/16 04:44 06/24/16 04:45 White Blood Count 11.9 x10^3/uL (4.0-11.0) 14.2 x10^3/uL (4.0-11.0) Red Blood Count 3.50 x10^6/uL (4.30-5.70) 3.42 x10^6/uL (4.30-5.70) Hemoglobin 9.8 g/dL (13.0-17.5) 9.4 g/dL (13.0-17.5) Hematocrit 28.2 % (39.0-53.0) 27.9 % (39.0-53.0) Mean Corpuscular Volume 80 fL (79-100) 82 fL (79-100) Mean Corpuscular Hemoglobin 28 pg (25-35) 28 pg (25-35) Mean Corpuscular Hemoglobin Concent 35 g/dL (31-37) 34 g/dL (31-37) Red Cell Distribution Width 15.9 % (11.5-14.5) 16.6 % (11.5-14.5) Platelet Count 241 x10^3/uL (140-400) 235 x10^3/uL (140-400) Neutrophils (%) (Auto) 83 % (31-73) 83 % (31-73) Lymphocytes (%) (Auto) 4 % (24-48) 4 % (24-48) Monocytes (%) (Auto) 13 % (0-9) 13 % (0-9) Eosinophils (%) (Auto) 0 % (0-3) 0 % (0-3) Basophils (%) (Auto) 0 % (0-3) 0 % (0-3) Neutrophils # (Auto) 9.9 x10^3uL (1.8-7.7) 11.7 x10^3uL (1.8-7.7) Lymphocytes # (Auto) 0.5 x10^3/uL (1.0-4.8) 0.6 x10^3/uL (1.0-4.8) Monocytes # (Auto) 1.5 x10^3/uL (0.0-1.1) 1.8 x10^3/uL (0.0-1.1) Eosinophils # (Auto) 0.0 x10^3/uL (0.0-0.7) 0.0 x10^3/uL (0.0-0.7) Basophils # (Auto) 0.0 x10^3/uL (0.0-0.2) 0.0 x10^3/uL (0.0-0.2) Segmented Neutrophils % 26 % (35-66) Band Neutrophils % 48 % (0-9) Lymphocytes % 6 % (24-48) Monocytes % 15 % (0-10) Eosinophils % 2 % (0-5) Basophils % 1 % (0-3) Metamyelocytes % 1 % (0-0) Myelocytes % 1 % (0-0) Nucleated Red Blood Cells 2 Toxic Granulation Slight Platelet Estimate Adequate (ADEQUATE) Anisocytosis Slight Potassium Level 3.4 mmol/L (3.5-5.1) 3.5 mmol/L (3.5-5.1) Sodium Level 140 mmol/L (136-145) Chloride Level 104 mmol/L (98-107) Carbon Dioxide Level 25 mmol/L (21-32) Anion Gap 11 (6-14) Blood Urea Nitrogen 11 mg/dL (8-26) Creatinine 0.6 mg/dL (0.7-1.3) Estimated GFR (Cockcroft-Gault) 136.5 Glucose Level 81 mg/dL (70-99) Calcium Level 7.9 mg/dL (8.5-10.1) Magnesium Level 1.7 mg/dL (1.8-2.4) Laboratory Tests Test 06/24/16 04:44 06/24/16 04:45 Sodium Level 140 mmol/L (136-145) Potassium Level 3.5 mmol/L (3.5-5.1) Chloride Level 104 mmol/L (98-107) Carbon Dioxide Level 25 mmol/L (21-32) Anion Gap 11 (6-14) Blood Urea Nitrogen 11 mg/dL (8-26) Creatinine 0.6 mg/dL (0.7-1.3) Estimated GFR (Cockcroft-Gault) 136.5 Glucose Level 81 mg/dL (70-99) Calcium Level 7.9 mg/dL (8.5-10.1) Magnesium Level 1.7 mg/dL (1.8-2.4) White Blood Count 14.2 x10^3/uL (4.0-11.0) Red Blood Count 3.42 x10^6/uL (4.30-5.70) Hemoglobin 9.4 g/dL (13.0-17.5) Hematocrit 27.9 % (39.0-53.0) Mean Corpuscular Volume 82 fL (79-100) Mean Corpuscular Hemoglobin 28 pg (25-35) Mean Corpuscular Hemoglobin Concent 34 g/dL (31-37) Red Cell Distribution Width 16.6 % (11.5-14.5) Platelet Count 235 x10^3/uL (140-400) Neutrophils (%) (Auto) 83 % (31-73) Lymphocytes (%) (Auto) 4 % (24-48) Monocytes (%) (Auto) 13 % (0-9) Eosinophils (%) (Auto) 0 % (0-3) Basophils (%) (Auto) 0 % (0-3) Neutrophils # (Auto) 11.7 x10^3uL (1.8-7.7) Lymphocytes # (Auto) 0.6 x10^3/uL (1.0-4.8) Monocytes # (Auto) 1.8 x10^3/uL (0.0-1.1) Eosinophils # (Auto) 0.0 x10^3/uL (0.0-0.7) Basophils # (Auto) 0.0 x10^3/uL (0.0-0.2) Medications Current Medications Amino Acids/ Glycerin/ Electrolytes 1,000 ml @ 80 mls/hr [id number] IV Last administered on 06/23/16 22:38; Start 06/20/16 at 16:00 Pantoprazole Sodium (Protonix Vial) 40 mg DAILYAC IVP Last administered on 07:54; Start 06/20/16 at 16:30 Enoxaparin Sodium (Lovenox 40mg Syringe) 40 mg Q24H SQ Last administered on 06/23 15:58; Start 06/20/16 at 16:00 Morphine Sulfate 2 mg PRN Q2HR PRN IV MILD PAIN Last administered on 06/24/16 02:56; Start 06/20/16 at 15:30 Fentanyl Citrate (Fentanyl 2ml Vial) 50 mcg PRN Q2HR PRN IV MODERATE-SEVERE PAIN; Start 06/20/16 at 16:00 Ondansetron HCl (Zofran) 4 mg PRN Q6HRS PRN IV NAUSEA/VOMITING 1ST CHOICE; Start 06/20/16 at 16:45 Prochlorperazine Edisylate (Compazine) 10 mg PRN Q6HRS PRN IV NAUSEA/VOMITING 2ND CHOICE; Start 06/20/16 at 16:45 Prochlorperazine (Compazine) 25 mg PRN Q12HR PRN [place] NAUSEA/VOMITING; Start 06/20 at 16:45 Labetalol HCl (Normodyne) 10 mg PRN Q2HR PRN IVP HYPERTENSION, SEE COMMENTS Last administered on 06/22/16 08:58; Start 06/20/16 at 19:15 Metoclopramide HCl (Reglan) 5 mg QID IV Last administered on 06/24/16 07:53; Start 06/21/16 at 09:00 Tbo-Filgrastim (Granix) 480 mcg QHS SQ Last administered on 06/22/16 21:25; Start 06/21/16 at 21:00; Stop 06/23/16 at 12:50; Status DC Lidocaine HCl (Viscous Lidocaine) 15 ml PRN Q4HRS PRN SWSW MOUTH PAIN; Start at 09:30 Potassium Chloride 50 ml @ 50 mls/hr Q1H IV ; Start 06/21/16 at 14:00; Stop at 16:59; Status UNV Potassium Chloride 100 ml @ 100 mls/hr Q1H IV Last administered on 06/21/16 21 :20; Start 06/21/16 at 14:30; Stop 06/21/16 at 20:29; Status DC Potassium Chloride 100 ml @ 100 mls/hr Q1H IV Last administered on 06/22/16 21 :25; Start 06/22/16 at 15:00; Stop 06/22/16 at 18:59; Status DC Potassium Chloride 100 ml @ 100 mls/hr Q1H IV Last administered on 06/23/16 18 :27; Start 06/23/16 at 13:00; Stop 06/23/16 at 16:59; Status DC Active Scripts Active Tessalon Perle (Benzonatate) 100 Mg Capsule 100 Mg PO TID PRN Reported Atorvastatin Calcium 40 Mg Tablet 40 Mg PO HS Omeprazole 40 Mg Capsule.dr 40 Mg PO DAILYWSUP Nystatin 100,000 Unit/1 Ml Oral.susp 5 Ml PO QID Antacid Anti-Gas Liquid (Mag Hydrox/Al Hydrox/Simeth) 355 Ml Oral.susp 355 Ml PO TIDACHC Amlodipine Besylate 10 Mg Tablet 10 Mg PO DAILY Aspirin Ec (Aspirin) 81 Mg Tablet.dr 1 Tab PO DAILY Vitamin D3 (Cholecalciferol (Vitamin D3)) 5,000 Unit Tablet 1 Tab PO DAILY Coreg (Carvedilol) 25 Mg Tablet 1 Tab PO BID Lipitor (Atorvastatin Calcium) 40 Mg Tablet 40 Mg PO HS Metamucil Packet (Psyllium Seed (With Sugar)) 1 Each Packet 1 Each PO DAILY Calcium 250+D Tablet (Calcium Carbonate/Vitamin D3) 1 Each Tablet 1 Each PO BID Celebrex (Celecoxib) 200 Mg Capsule 200 Mg PO DAILY Vitals/I & O Vital Sign - Last 24 Hours 06/23/16 06/23/16 06/23/16 06/23/16 15:00 19:56 20:00 21:27 Temp 97.7 98.2 97.7 98.2 Pulse 84 81 Resp 20 16 16 B/P (MAP) 154/96 (115) 152/82 (105) Pulse Ox 90 94 O2 Delivery Room Air Room Air Room Air 06/23/16 06/23/16 06/24/16 06/24/16 21:55 23:10 02:56 03:20 Temp 97.9 97.9 97.9 97.9 Pulse 76 79 Resp 15 16 16 16 B/P (MAP) 142/88 (106) 145/98 (114) Pulse Ox 93 92 O2 Delivery Room Air Room Air Room Air 06/24/16 06/24/16 06/24/16 06/24/16 03:25 07:00 08:00 11:00 Temp 98.0 97.9 98.0 97.9 Pulse 78 73 Resp 20 20 B/P (MAP) 151/102 (118) 146/89 (108) Pulse Ox 92 96 O2 Delivery Room Air Room Air Room Air Room Air Intake and Output 06/23/16 06/23/16 06/24/16 15:00 23:00 07:00 Intake Total 0 ml Balance 0 ml PETER SOLITARIO III DO June 24, 2016 11:32
[2016-06-24] MEDS ORDERED: fentaNYL PF VIAL 100 MCG/2 ML VIAL IV PRN ×2 (12:45)
[2016-06-24] MEDS ORDERED: LIDOCAINE 1% 1 ML SYRINGE. ID PRN (12:45)
[2016-06-24] MEDS ORDERED: MIDAZOLAM HCL/PF 2 MG/2 ML VIAL. IV PRN (12:45)
[2016-06-24] MEDS ORDERED: IV RINGERS,LACTATED 1000ML 1,000 ML IV SCH (12:45)
[2016-06-24] MEDS ORDERED: PROPOFOL 20 ML IV ONE (12:55)
--- NOTE | 2016-06-24 13:23 | PDOC4 ---
PROCEDURE Procedure EGD Indication: odynodysphagia Meds: per anesthesia Findings: E--circumferential exudate/friability just distal to CP (corresponds to radiation port?). Normal distally w/o viral/yeast changes. GEJ at 40cm. G--small pancreatic rest greater curve antrum. D--large diverticulum, second portion. Immanuel. well. 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 try advance diet as able. --according to expert opinion, no other specific treatment for this. Thanks. JASWINDER SHI MD June 24, 2016 13:23
[2016-06-24 14:00] VITALS: BP 169/100
[2016-06-24] MEDS ORDERED: MAGNESIUM CITRATE 296 ML SOLUTION. PO ONE (15:00)
[2016-06-24] MEDS: ENOXAPARIN 40 MG/0.4 ML SYRINGE. SQ SCH (15:27)
[2016-06-24] MEDS: METOCLOPRAMIDE HCL 10 MG/10 ML SOLUTION. PO SCH ×2 (15:28→20:30)
[2016-06-24] MEDS: LABETALOL 20 MG/4 ML DISP.SYRIN. IVP PRN (15:31)
--- NOTE | 2016-06-24 16:33 | PDOC ---
Provider Note Provider Note 60 yo man with limited St IIIB small cell lung carcinoma . He completed 50 Gy of chest radiation 06/18/2016. He had radiation esophagitis at the end of treatment recalcitrant to symptomatic treatment and was managed with pain meds and outpatient IV fluids. Admitted for persistent dysphagia and odynophagia and leukopenia secondary to treatment. He just underwent EGD and was found to have severe radiation esophagitis without any evidence for infection. CBC on admit HB 9.9 WBC 1000 Plat 143K, now 06/24/16 HB 9.4 WBC (post stimulation) 34844 Plat 235K His sore throat is better and he is looking forward to eating dinner this afternoon. He is also constipated with last BM one week ago. Impression: Severe radiation esophagitis. Now symptomatically doing better.Leukopenia improved. Mg citrate planned for constipation. Anticipate one additional cycle of chemo after fully recovered then restaging evaluation. If restaging is favorable with a CR or near CR then proceed with prophylactic whole brain radiation as last component of treatment. IMAN MARIN MD June 24, 2016 16:33
[2016-06-24 19:30] VITALS: BP 148/97
[2016-06-24 23:30] VITALS: BP 134/90
[2016-06-25 03:30] VITALS: BP 150/96
[2016-06-25] MEDS: MORPHINE SULFATE 2 MG/ML DISP.SYRIN. IV PRN (05:17)
[2016-06-25 07:00] VITALS: BP 159/94
[2016-06-25] MEDS: AMINO AC 3%/ELECTROLYTE/GLYCER 1,000 ML IV SCH (08:30)
[2016-06-25] MEDS: METOCLOPRAMIDE HCL 10 MG/10 ML SOLUTION. PO SCH ×2 (08:32→13:04)
[2016-06-25] MEDS: METOCLOPRAMIDE HCL 10 MG/2 ML VIAL. IV SCH ×3 (08:33→13:00)
--- NOTE | 2016-06-25 10:22 | PDOC ---
Subjective: Subjective: Onc f/u- SCLC Mild odynophagia, much better Ate breakfast Right hand swollen with IV Fatigued Objective: Vital Signs: Vital Signs Date Time Temp Pulse Resp B/P (MAP) Pulse Ox O2 Delivery O2 Flow Rate FiO2 06/25/16 08:00 Room Air 2.0 06/25/16 07:00 97.9 65 18 159/94 (115) 93 97.9 Physical Exam: Extremities: Other (Right hand swelling with iV) General: Alert, Oriented X3, Cooperative, No acute distress Lungs: Other (no resp distress) Psych/Mental Status: Mental status NL, Mood NL Labs/Imaging: CBC reviewed- cytopenias improved EGD reviewed- radiation esophagitis Assessment/Plan A/P: 1. T4N3M0 stage IIIB SCLC. S/p chemoradiation, third dose of cisplatin/ etoposide on 06/05/2016, 4th cycle delayed 1 week due to toxicities. F/u with Dr. Polanco next week. 2. Neutropenia, chemotherapy related. Resolved s/p Neupogen. 3. Odynophagia, mucositis, treatment related with radiation esophagitis on EGD. Improved, able to tolerate po. Ok to DC from onc standpoint. F/u Dr. Polanco in 1 week. CHELLY PALAFOX DO June 25, 2016 10:22
--- NOTE | 2016-06-25 10:56 | PDOC ---
G I PROGRESS NOTE Subjective Continues to feel better. Would like to go home. Physical Exam Abdomen soft, not tender nor distended. Review of Relevant I have reviewed the following items tra (where applicable) has been applied. Labs Laboratory Tests Test 06/24/16 04:44 06/24/16 04:45 Sodium Level 140 mmol/L (136-145) Potassium Level 3.5 mmol/L (3.5-5.1) Chloride Level 104 mmol/L (98-107) Carbon Dioxide Level 25 mmol/L (21-32) Anion Gap 11 (6-14) Blood Urea Nitrogen 11 mg/dL (8-26) Creatinine 0.6 mg/dL (0.7-1.3) Estimated GFR (Cockcroft-Gault) 136.5 Glucose Level 81 mg/dL (70-99) Calcium Level 7.9 mg/dL (8.5-10.1) Magnesium Level 1.7 mg/dL (1.8-2.4) White Blood Count 14.2 x10^3/uL (4.0-11.0) Red Blood Count 3.42 x10^6/uL (4.30-5.70) Hemoglobin 9.4 g/dL (13.0-17.5) Hematocrit 27.9 % (39.0-53.0) Mean Corpuscular Volume 82 fL (79-100) Mean Corpuscular Hemoglobin 28 pg (25-35) Mean Corpuscular Hemoglobin Concent 34 g/dL (31-37) Red Cell Distribution Width 16.6 % (11.5-14.5) Platelet Count 235 x10^3/uL (140-400) Neutrophils (%) (Auto) 83 % (31-73) Lymphocytes (%) (Auto) 4 % (24-48) Monocytes (%) (Auto) 13 % (0-9) Eosinophils (%) (Auto) 0 % (0-3) Basophils (%) (Auto) 0 % (0-3) Neutrophils # (Auto) 11.7 x10^3uL (1.8-7.7) Lymphocytes # (Auto) 0.6 x10^3/uL (1.0-4.8) Monocytes # (Auto) 1.8 x10^3/uL (0.0-1.1) Eosinophils # (Auto) 0.0 x10^3/uL (0.0-0.7) Basophils # (Auto) 0.0 x10^3/uL (0.0-0.2) Medications Current Medications Amino Acids/ Glycerin/ Electrolytes 1,000 ml @ 80 mls/hr [id number] IV Last administered on 06/24/16 20:31; Start 06/20/16 at 16:00 Pantoprazole Sodium (Protonix Vial) 40 mg DAILYAC IVP Last administered on 07:54; Start 06/20/16 at 16:30; Stop 06/24/16 at 13:26; Status DC Enoxaparin Sodium (Lovenox 40mg Syringe) 40 mg Q24H SQ Last administered on 06/24 15:27; Start 06/20/16 at 16:00 Morphine Sulfate 2 mg PRN Q2HR PRN IV MILD PAIN Last administered on 06/25/16 05:17; Start 06/20/16 at 15:30 Fentanyl Citrate (Fentanyl 2ml Vial) 50 mcg PRN Q2HR PRN IV MODERATE-SEVERE PAIN; Start 06/20/16 at 16:00 Ondansetron HCl (Zofran) 4 mg PRN Q6HRS PRN IV NAUSEA/VOMITING 1ST CHOICE; Start 06/20/16 at 16:45 Prochlorperazine Edisylate (Compazine) 10 mg PRN Q6HRS PRN IV NAUSEA/VOMITING 2ND CHOICE Last administered on 06/24/16 20:30; Start 06/20/16 at 16:45 Prochlorperazine (Compazine) 25 mg PRN Q12HR PRN [place] NAUSEA/VOMITING; Start 06/20 at 16:45 Labetalol HCl (Normodyne) 10 mg PRN Q2HR PRN IVP HYPERTENSION, SEE COMMENTS Last administered on 06/24/16 15:31; Start 06/20/16 at 19:15 Metoclopramide HCl (Reglan) 5 mg QID IV Last administered on 06/24/16 21:00; Start 06/21/16 at 09:00 Tbo-Filgrastim (Granix) 480 mcg QHS SQ Last administered on 06/22/16 21:25; Start 06/21/16 at 21:00; Stop 06/23/16 at 12:50; Status DC Lidocaine HCl (Viscous Lidocaine) 15 ml PRN Q4HRS PRN SWSW MOUTH PAIN; Start at 09:30 Potassium Chloride 50 ml @ 50 mls/hr Q1H IV ; Start 06/21/16 at 14:00; Stop at 16:59; Status UNV Potassium Chloride 100 ml @ 100 mls/hr Q1H IV Last administered on 06/21/16 21 :20; Start 06/21/16 at 14:30; Stop 06/21/16 at 20:29; Status DC Potassium Chloride 100 ml @ 100 mls/hr Q1H IV Last administered on 06/22/16 21 :25; Start 06/22/16 at 15:00; Stop 06/22/16 at 18:59; Status DC Potassium Chloride 100 ml @ 100 mls/hr Q1H IV Last administered on 06/23/16 18 :27; Start 06/23/16 at 13:00; Stop 06/23/16 at 16:59; Status DC Midazolam HCl (Versed) 2 mg PRN 1X PRN IV PRIOR TO PROCEDURE; Start 06/24/16 at 12:45; Stop 06/25/16 at 12:44 Fentanyl Citrate (Fentanyl 2ml Vial) 25 mcg PRN Q5MIN PRN IV X 2 DOSES FOR PAIN ; Start 06/24/16 at 12:45; Stop 06/25/16 at 12:44 Fentanyl Citrate (Fentanyl 2ml Vial) 50 mcg PRN Q5MIN PRN IV X 2 DOSES FOR PAIN ; Start 06/24/16 at 12:45; Stop 06/25/16 at 12:44 Ringer's Solution 1,000 ml @ 125 mls/hr Q8H IV Last administered on 06/24/16 12:47; Start 06/24/16 at 12:45; Stop 06/24/16 at 17:47; Status DC Lidocaine HCl 2 ml 1X PRN PRN ID IV START; Start 06/24/16 at 12:45; Stop at 12:44 Propofol 20 ml @ As Directed STK-MED ONCE IV ; Start 06/24/16 at 12:55; Stop 06/24 at 12:56; Status DC Metoclopramide HCl (Reglan) 5 mg QIDACHS PO Last administered on 06/25/16 08:32 ; Start 06/24/16 at 16:30 Magnesium Citrate (Citroma) 296 ml 1X ONCE PO Last administered on 06/24/16 15 :26; Start 06/24/16 at 15:00; Stop 06/24/16 at 15:01; Status DC Active Scripts Active Tessalon Perle (Benzonatate) 100 Mg Capsule 100 Mg PO TID PRN Reported Atorvastatin Calcium 40 Mg Tablet 40 Mg PO HS Omeprazole 40 Mg Capsule.dr 40 Mg PO DAILYWSUP Nystatin 100,000 Unit/1 Ml Oral.susp 5 Ml PO QID Antacid Anti-Gas Liquid (Mag Hydrox/Al Hydrox/Simeth) 355 Ml Oral.susp 355 Ml PO TIDACHC Amlodipine Besylate 10 Mg Tablet 10 Mg PO DAILY Aspirin Ec (Aspirin) 81 Mg Tablet.dr 1 Tab PO DAILY Vitamin D3 (Cholecalciferol (Vitamin D3)) 5,000 Unit Tablet 1 Tab PO DAILY Coreg (Carvedilol) 25 Mg Tablet 1 Tab PO BID Lipitor (Atorvastatin Calcium) 40 Mg Tablet 40 Mg PO HS Metamucil Packet (Psyllium Seed (With Sugar)) 1 Each Packet 1 Each PO DAILY Calcium 250+D Tablet (Calcium Carbonate/Vitamin D3) 1 Each Tablet 1 Each PO BID Celebrex (Celecoxib) 200 Mg Capsule 200 Mg PO DAILY Vitals/I & O Vital Sign - Last 24 Hours 06/24/16 06/24/16 06/24/16 06/24/16 11:00 12:40 12:42 13:19 Temp 97.9 97.6 98 97.9 97.6 98.0 Pulse 73 85 85 Resp 20 20 18 B/P (MAP) 146/89 (108) 179/104 Pulse Ox 96 97 97 O2 Delivery Room Air Room Air Room Air O2 Flow Rate 2 06/24/16 06/24/16 06/24/16 06/24/16 13:34 14:00 15:31 16:56 Temp 97.9 97.9 Pulse 73 77 77 Resp 18 20 14 B/P (MAP) 199/99 169/100 (123) 169/100 Pulse Ox 93 96 O2 Delivery Room Air Room Air 06/24/16 06/24/16 06/24/16 06/24/16 17:46 19:30 20:00 23:30 Temp 98.1 97.7 98.1 97.7 Pulse 74 82 Resp 14 18 18 B/P (MAP) 148/97 (114) 134/90 (105) Pulse Ox 97 93 O2 Delivery Room Air Room Air Room Air 06/25/16 06/25/16 06/25/16 06/25/16 03:30 05:17 05:47 07:00 Temp 97.7 97.9 97.7 97.9 Pulse 80 65 Resp 18 18 B/P (MAP) 150/96 (114) 159/94 (115) Pulse Ox 96 96 96 93 O2 Delivery Room Air Room Air Room Air Room Air 06/25/16 08:00 O2 Delivery Room Air O2 Flow Rate 2.0 Intake and Output 06/24/16 06/24/16 06/25/16 15:00 23:00 07:00 Intake Total 408 ml 590 ml Balance 408 ml 590 ml Assessment Post-radiation esophagitis, clinically improving. Plan of Care: Continue current Tx, Mgmt Plan of Care Note OK with me to go home. Would continue Reglan for at least 6-8 weeks. Hopefully will not heal with stricture; if so, can dilate. JASWINDER SHI MD June 25, 2016 10:56
[2016-06-25 11:00] VITALS: BP 136/97
--- NOTE | 2016-06-25 11:23 | PDOC ---
PROGRESS NOTES Chief Complaint Chief Complaint 1. 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 Ex smoker History of Present Illness History of Present Illness Mr. Blair was lying in bed in NAD when we saw him. He is still having pain and difficulty with swallowing. Denies any hematemesis. Discussed care with nurse and Dr. Mcelroy (GI). Vitals Vitals Vital Signs Date Time Temp Pulse Resp B/P (MAP) Pulse Ox O2 Delivery O2 Flow Rate FiO2 06/25/16 08:00 Room Air 2.0 06/25/16 07:00 97.9 65 18 159/94 (115) 93 97.9 Physical Exam General: Alert, Oriented X3, Cooperative, No acute distress Heart: Normal S1, Normal S2 Lungs: Clear Abdomen: Normal bowel sounds, Soft, No tenderness, No hepatosplenomegaly, No masses Extremities: No clubbing, No cyanosis, No edema Skin: No rashes, No breakdown, No significant lesion Review of Systems Review of Systems General: denies fatigue GI: pain and difficulty with swallowing, denies N/V/D/C Assessment and Plan Assessmemt and Plan 1. 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 Ex smoker Plan: 1. GI following- s/p EGD - radiation esophagitis 2. Continue Reglan 6-8 weeks per GI, no PPI or Carafate 3. Advance diet as tolerated 4. D/C today 5. F/u with GI and PCP 6. Radiation rescheduled to next week from 06/26 Problems: Comment Review of Relevant I have reviewed the following items tra (where applicable) has been applied. Labs Laboratory Tests Test 06/24/16 04:44 06/24/16 04:45 Sodium Level 140 mmol/L (136-145) Potassium Level 3.5 mmol/L (3.5-5.1) Chloride Level 104 mmol/L (98-107) Carbon Dioxide Level 25 mmol/L (21-32) Anion Gap 11 (6-14) Blood Urea Nitrogen 11 mg/dL (8-26) Creatinine 0.6 mg/dL (0.7-1.3) Estimated GFR (Cockcroft-Gault) 136.5 Glucose Level 81 mg/dL (70-99) Calcium Level 7.9 mg/dL (8.5-10.1) Magnesium Level 1.7 mg/dL (1.8-2.4) White Blood Count 14.2 x10^3/uL (4.0-11.0) Red Blood Count 3.42 x10^6/uL (4.30-5.70) Hemoglobin 9.4 g/dL (13.0-17.5) Hematocrit 27.9 % (39.0-53.0) Mean Corpuscular Volume 82 fL (79-100) Mean Corpuscular Hemoglobin 28 pg (25-35) Mean Corpuscular Hemoglobin Concent 34 g/dL (31-37) Red Cell Distribution Width 16.6 % (11.5-14.5) Platelet Count 235 x10^3/uL (140-400) Neutrophils (%) (Auto) 83 % (31-73) Lymphocytes (%) (Auto) 4 % (24-48) Monocytes (%) (Auto) 13 % (0-9) Eosinophils (%) (Auto) 0 % (0-3) Basophils (%) (Auto) 0 % (0-3) Neutrophils # (Auto) 11.7 x10^3uL (1.8-7.7) Lymphocytes # (Auto) 0.6 x10^3/uL (1.0-4.8) Monocytes # (Auto) 1.8 x10^3/uL (0.0-1.1) Eosinophils # (Auto) 0.0 x10^3/uL (0.0-0.7) Basophils # (Auto) 0.0 x10^3/uL (0.0-0.2) Medications Current Medications Amino Acids/ Glycerin/ Electrolytes 1,000 ml @ 80 mls/hr [id number] IV Last administered on 06/24/16 20:31; Start 06/20/16 at 16:00 Pantoprazole Sodium (Protonix Vial) 40 mg DAILYAC IVP Last administered on 07:54; Start 06/20/16 at 16:30; Stop 06/24/16 at 13:26; Status DC Enoxaparin Sodium (Lovenox 40mg Syringe) 40 mg Q24H SQ Last administered on 06/24 15:27; Start 06/20/16 at 16:00 Morphine Sulfate 2 mg PRN Q2HR PRN IV MILD PAIN Last administered on 06/25/16 05:17; Start 06/20/16 at 15:30 Fentanyl Citrate (Fentanyl 2ml Vial) 50 mcg PRN Q2HR PRN IV MODERATE-SEVERE PAIN; Start 06/20/16 at 16:00 Ondansetron HCl (Zofran) 4 mg PRN Q6HRS PRN IV NAUSEA/VOMITING 1ST CHOICE; Start 06/20/16 at 16:45 Prochlorperazine Edisylate (Compazine) 10 mg PRN Q6HRS PRN IV NAUSEA/VOMITING 2ND CHOICE Last administered on 06/24/16 20:30; Start 06/20/16 at 16:45 Prochlorperazine (Compazine) 25 mg PRN Q12HR PRN NE NAUSEA/VOMITING; Start 06/20 at 16:45 Labetalol HCl (Normodyne) 10 mg PRN Q2HR PRN IVP HYPERTENSION, SEE COMMENTS Last administered on 06/24/16 15:31; Start 06/20/16 at 19:15 Metoclopramide HCl (Reglan) 5 mg QID IV Last administered on 06/24/16 21:00; Start 06/21/16 at 09:00 Tbo-Filgrastim (Granix) 480 mcg QHS SQ Last administered on 06/22/16 21:25; Start 06/21/16 at 21:00; Stop 06/23/16 at 12:50; Status DC Lidocaine HCl (Viscous Lidocaine) 15 ml PRN Q4HRS PRN SWSW MOUTH PAIN; Start at 09:30 Potassium Chloride 50 ml @ 50 mls/hr Q1H IV ; Start 06/21/16 at 14:00; Stop at 16:59; Status UNV Potassium Chloride 100 ml @ 100 mls/hr Q1H IV Last administered on 06/21/16 21 :20; Start 06/21/16 at 14:30; Stop 06/21/16 at 20:29; Status DC Potassium Chloride 100 ml @ 100 mls/hr Q1H IV Last administered on 06/22/16 21 :25; Start 06/22/16 at 15:00; Stop 06/22/16 at 18:59; Status DC Potassium Chloride 100 ml @ 100 mls/hr Q1H IV Last administered on 06/23/16 18 :27; Start 06/23/16 at 13:00; Stop 06/23/16 at 16:59; Status DC Midazolam HCl (Versed) 2 mg PRN 1X PRN IV PRIOR TO PROCEDURE; Start 06/24/16 at 12:45; Stop 06/25/16 at 12:44 Fentanyl Citrate (Fentanyl 2ml Vial) 25 mcg PRN Q5MIN PRN IV X 2 DOSES FOR PAIN ; Start 06/24/16 at 12:45; Stop 06/25/16 at 12:44 Fentanyl Citrate (Fentanyl 2ml Vial) 50 mcg PRN Q5MIN PRN IV X 2 DOSES FOR PAIN ; Start 06/24/16 at 12:45; Stop 06/25/16 at 12:44 Ringer's Solution 1,000 ml @ 125 mls/hr Q8H IV Last administered on 06/24/16 12:47; Start 06/24/16 at 12:45; Stop 06/24/16 at 17:47; Status DC Lidocaine HCl 2 ml 1X PRN PRN ID IV START; Start 06/24/16 at 12:45; Stop at 12:44 Propofol 20 ml @ As Directed STK-MED ONCE IV ; Start 06/24/16 at 12:55; Stop 06/24 at 12:56; Status DC Metoclopramide HCl (Reglan) 5 mg QIDACHS PO Last administered on 06/25/16 08:32 ; Start 06/24/16 at 16:30 Magnesium Citrate (Citroma) 296 ml 1X ONCE PO Last administered on 06/24/16 15 :26; Start 06/24/16 at 15:00; Stop 06/24/16 at 15:01; Status DC Active Scripts Active Tessalon Perle (Benzonatate) 100 Mg Capsule 100 Mg PO TID PRN Reported Atorvastatin Calcium 40 Mg Tablet 40 Mg PO HS Omeprazole 40 Mg Capsule.dr 40 Mg PO DAILYWSUP Nystatin 100,000 Unit/1 Ml Oral.susp 5 Ml PO QID Antacid Anti-Gas Liquid (Mag Hydrox/Al Hydrox/Simeth) 355 Ml Oral.susp 355 Ml PO TIDACHC Amlodipine Besylate 10 Mg Tablet 10 Mg PO DAILY Aspirin Ec (Aspirin) 81 Mg Tablet.dr 1 Tab PO DAILY Vitamin D3 (Cholecalciferol (Vitamin D3)) 5,000 Unit Tablet 1 Tab PO DAILY Coreg (Carvedilol) 25 Mg Tablet 1 Tab PO BID Lipitor (Atorvastatin Calcium) 40 Mg Tablet 40 Mg PO HS Metamucil Packet (Psyllium Seed (With Sugar)) 1 Each Packet 1 Each PO DAILY Calcium 250+D Tablet (Calcium Carbonate/Vitamin D3) 1 Each Tablet 1 Each PO BID Celebrex (Celecoxib) 200 Mg Capsule 200 Mg PO DAILY Vitals/I & O Vital Sign - Last 24 Hours 06/24/16 06/24/16 06/24/16 06/24/16 12:40 12:42 13:19 13:34 Temp 97.6 98 97.6 98.0 Pulse 85 85 73 Resp 20 18 18 B/P (MAP) 179/104 199/99 Pulse Ox 97 97 93 O2 Delivery Room Air Room Air O2 Flow Rate 2 06/24/16 06/24/16 06/24/16 06/24/16 14:00 15:31 16:56 17:46 Temp 97.9 97.9 Pulse 77 77 Resp 20 14 14 B/P (MAP) 169/100 (123) 169/100 Pulse Ox 96 O2 Delivery Room Air Room Air 06/24/16 06/24/16 06/24/16 06/25/16 19:30 20:00 23:30 03:30 Temp 98.1 97.7 97.7 98.1 97.7 97.7 Pulse 74 82 80 Resp 18 18 18 B/P (MAP) 148/97 (114) 134/90 (105) 150/96 (114) Pulse Ox 97 93 96 O2 Delivery Room Air Room Air Room Air Room Air 06/25/16 06/25/16 06/25/16 06/25/16 05:17 05:47 07:00 08:00 Temp 97.9 97.9 Pulse 65 Resp 18 B/P (MAP) 159/94 (115) Pulse Ox 96 96 93 O2 Delivery Room Air Room Air Room Air Room Air O2 Flow Rate 2.0 Intake and Output 06/24/16 06/24/16 06/25/16 15:00 23:00 07:00 Intake Total 408 ml 590 ml Balance 408 ml 590 ml PETER SOLITARIO III DO June 25, 2016 11:23
[2016-06-25 15:28] LABS: HEP A IGM ABDY Negative (Negative)
== END 2016-06-25 15:04 | disposition home or self-care (01) | DRG 392 ==
LOC: 6 SOUTH 13:43
PROVIDERS: ADMIT Internal Medicine; ATTEND Internal Medicine
PROC: 0DJ08ZZ Inspection of Upper Intestinal Tract, Via Natural or Artificial Opening Endoscopic (ICD-10-PCS; principal; 2016-06-24 13:00)
DX: K20.8 Other esophagitis (principal); R13.10 Dysphagia, unspecified; K59.00 Constipation, unspecified; I25.10 Atherosclerotic heart disease of native coronary artery without angina pectoris; I10 Essential (primary) hypertension; E78.5 Hyperlipidemia, unspecified; D70.9 Neutropenia, unspecified; K12.30 Oral mucositis (ulcerative), unspecified; R63.4 Abnormal weight loss; Z96.651 Presence of right artificial knee joint; K57.10 Diverticulosis of small intestine without perforation or abscess without bleeding; Z80.0 Family history of malignant neoplasm of digestive organs; Z85.118 Personal history of other malignant neoplasm of bronchus and lung; Z92.3 Personal history of irradiation; Z87.891 Personal history of nicotine dependence; Z95.5 Presence of coronary angioplasty implant and graft; Z68.34 Body mass index [BMI] 34.0-34.9, adult; Z88.0 Allergy status to penicillin; Z91.018 Allergy to other foods
CPT/HCPCS: 36415; 80048; 80053; 80074; 83735; 84100; 84132; 85007; 85027; 85610; C9113; J0780; J1442; J1650; J2270; J2704; J2765; J3480; J3490; J7120; J8597

== ENCOUNTER 2016-07-13 23:59 | Emergency (ER) | payer OTHER ==
[~2016-07-13] VITALS: Ht 177.8 cm; Wt 103.0 kg
[~2016-07-13 23:59] MED LIST changes: +ATOR40TA59 PO; +LOSA50TA6 PO; +NYST100054 PO; +OMEP40CA5 PO; +[UNRECOGNIZED DRUG - CODE] PO
--- NOTE | 2016-07-14 00:23 | PHYS DOC ---
Past Medical History Past Medical History: Alcoholism, Cancer, Hypertension Additional Past Medical Histor: Seasonal allergies, ENRIKE, RADIATION AND CHEMO FOR LUNG CA Past Surgical History: Other Additional Past Surgical Histo: Cardiac stent x 1,Stomach sleeve., R. knee Alcohol Use: None Drug Use: None Adult General Chief Complaint Chief Complaint: ABDOMINAL PAIN HPI HPI Patient is a 60 year old male who presents with complaint of upper abdominal pain. Patient states that he has had symptoms off and on for the past couple days but started getting worsening symptoms proximal to 3 hours prior to arrival. Patient is currently undergoing chemotherapy and radiation treatments for metastatic lung cancer. Patient states he last had radiation treatment one week ago and received treatment 3 weeks prior to that. The patient also received chemotherapy one week ago. The patient states that he is having dull burning pain in the upper portion of his abdomen. Patient denies radiation of pain currently. Patient rates his pain as 8 out of 10. Patient states that he took Pepto-Bismol and Gaviscon earlier today which offered temporary relief of symptoms. Patient has had history of radiation esophagitis. Patient denies any fevers, hematemesis, or bloody stools. Review of Systems Review of Systems Constitutional: Denies fever or chills [] Eyes: Denies change in visual acuity, redness, or eye pain [] HENT: Denies nasal congestion or sore throat [] Respiratory: Denies cough or shortness of breath [] Cardiovascular: Denies chest pain or edema [] GI: Abdominal pain, nausea, denies vomiting, bloody stools or diarrhea [] : Denies dysuria or hematuria [] Musculoskeletal: Denies back pain or joint pain [] Integument: Denies rash or skin lesions [] Neurologic: Denies headache, focal weakness or sensory changes [] Current Medications Current Medications Current Medications Medications (Trade) Dose Ordered Sig/Ginny Start Time Stop Time Status Last Admin Dose Admin Fentanyl Citrate (Fentanyl 2ml Vial) 50 mcg PRN Q15MIN PRN 07/14/16 00:30 07/15/16 00:29 07/14/16 01:54 50 MCG Multi-Ingredient Mouthwash/Gargle (Gi Cocktail Single Dose) 15 ml 1X ONCE 07/14/16 00:45 07/14/16 00:46 DC 07/14/16 00:46 15 ML Ondansetron HCl (Zofran) 4 mg 1X ONCE 07/14/16 00:45 07/14/16 00:46 DC 07/14/16 00:45 4 MG Pantoprazole Sodium (Protonix Vial) 40 mg 1X ONCE 07/14/16 00:45 07/14/16 00:46 DC 07/14/16 00:46 40 MG Sodium Chloride 1,000 ml @ 1,000 mls/hr Q1H 07/14/16 00:45 07/14/16 01:44 DC 07/14/16 00:45 1,000 MLS/HR Allergies Allergies Allergies Coded Allergies Type Severity Reaction Last Updated Verified Penicillins Allergy Intermediate RASH A CHILD 06/24/16 Yes soy Adverse Reaction Intermediate Nausea and Vomiting 06/24/16 Yes Physical Exam Physical Exam Constitutional: Alert, afebrile, appears in moderate discomfort. [] HENT: Normocephalic, atraumatic, bilateral external ears normal, oropharynx moist, no oral exudates, nose normal. [] Eyes: PERRLA, EOMI, conjunctiva normal, no discharge. [] Neck: Normal range of motion, no tenderness, supple, no stridor. [] Cardiovascular:Heart rate regular rhythm, no murmur [] Lungs & Thorax: Bilateral breath sounds clear to auscultation [] Abdomen: Bowel sounds normal, soft, mild epigastric tenderness to palpation without hurting or rebound tenderness present, no masses, no pulsatile masses. [ ] Skin: Warm, dry, no erythema, no rash. [] Back: No tenderness, no CVA tenderness. [] Extremities: No tenderness, no cyanosis, no clubbing, ROM intact, no edema. [] Neurologic: Alert and oriented X 3, normal motor function, normal sensory function, no focal deficits noted. [] Current Patient Data Vital Signs Vital Signs Date Time Temp Pulse Resp B/P (MAP) Pulse Ox O2 Delivery O2 Flow Rate FiO2 07/14/16 01:54 99 Room Air 07/14/16 00:02 97.0 65 16 171/113 (132) 97.0 Lab Values Laboratory Tests Test 07/14/16 01:05 White Blood Count 0.9 x10^3/uL (4.0-11.0) *L Red Blood Count 3.14 x10^6/uL (4.30-5.70) L Hemoglobin 8.8 g/dL (13.0-17.5) L Hematocrit 26.3 % (39.0-53.0) L Mean Corpuscular Volume 84 fL (79-100) Mean Corpuscular Hemoglobin 28 pg (25-35) Mean Corpuscular Hemoglobin Concent 33 g/dL (31-37) Red Cell Distribution Width 18.9 % (11.5-14.5) H Platelet Count 98 x10^3/uL (140-400) L Neutrophils (%) (Auto) 59 % (31-73) Lymphocytes (%) (Auto) 29 % (24-48) Monocytes (%) (Auto) 3 % (0-9) Eosinophils (%) (Auto) 2 % (0-3) Basophils (%) (Auto) 7 % (0-3) H Neutrophils # (Auto) 0.5 x10^3uL (1.8-7.7) L Lymphocytes # (Auto) 0.3 x10^3/uL (1.0-4.8) L Monocytes # (Auto) 0.0 x10^3/uL (0.0-1.1) Eosinophils # (Auto) 0.0 x10^3/uL (0.0-0.7) Basophils # (Auto) 0.1 x10^3/uL (0.0-0.2) Platelet Estimate Pending Sodium Level 140 mmol/L (136-145) Potassium Level 3.8 mmol/L (3.5-5.1) Chloride Level 104 mmol/L (98-107) Carbon Dioxide Level 23 mmol/L (21-32) Anion Gap 13 (6-14) Blood Urea Nitrogen 12 mg/dL (8-26) Creatinine 0.8 mg/dL (0.7-1.3) Estimated GFR (Cockcroft-Gault) 98.0 BUN/Creatinine Ratio 15 (6-20) Glucose Level 103 mg/dL (70-99) H Calcium Level 8.2 mg/dL (8.5-10.1) L Total Bilirubin 0.4 mg/dL (0.2-1.0) Aspartate Amino Transferase (AST) 17 U/L (15-37) Alanine Aminotransferase (ALT) 16 U/L (16-63) Alkaline Phosphatase 63 U/L (46-116) Total Protein 6.8 g/dL (6.4-8.2) Albumin 3.1 g/dL (3.4-5.0) L Albumin/Globulin Ratio 0.8 (1.0-1.7) L Lipase 63 U/L (73-393) L Laboratory Tests 07/14/16 01:05 Laboratory Tests 07/14/16 01:05 EKG EKG Interpreted by me: Heart rate 64, sinus rhythm, normal intervals, normal axis, nonspecific T-wave inversion in lead 3, no acute ST elevations or depressions [] Radiology/Procedures Radiology/Procedures 3 view acute abdominal series interpreted by me: Nonobstructive bowel gas pattern, no free air under the diaphragm, no new infiltrates or effusions [] Course & Med Decision Making Course & Med Decision Making Pertinent Labs and Imaging studies reviewed. (See chart for details) Patient was given IV fentanyl, Zofran, Protonix, and IV fluids. On reevaluation , patient states his pain has improved and patient's nausea has resolved. Patient was given oral fluids in the emergency department which she was able to tolerate without difficulty. Patient found to have neutropenia which would be expected given patient's recent chemotherapy treatment. The patient states that he normally has a low white count within a week after chemotherapy treatment. The patient states that he feels comfortable at this time with outpatient therapy. Patient has an appointment in 3 days with his oncologist for repeat lab testing. Advised to continue with this appointment as scheduled. The patient also was recommended to continue on home therapy with [place] and Zofran, as well as a liquid diet for the next 2-3 days total symptoms resolved. Advised return emergency department for any worsening symptoms. Patient voiced understanding and in agreement with treatment plan. Dragon Disclaimer Dragon Disclaimer This electronic medical record was generated, in whole or in part, using a voice recognition dictation system. Departure Departure Impression: Primary Impression: Abdominal pain Additional Impressions: Nausea & vomiting Pancytopenia Disposition: HOME, SELF-CARE Condition: IMPROVED Referrals: ALBIN JETRE DO (PCP) Patient Instructions: Abdominal Pain (Nonspecific), Nausea and Vomiting Additional Instructions: Follow-up as scheduled in 3 days with your oncologist. Return to the emergency department for any worsening symptoms. Problem Qualifiers Primary Impression: Abdominal pain Abdominal location: epigastric Qualified Codes: R10.13 - Epigastric pain Additional Impressions: Nausea & vomiting Vomiting type: unspecified Vomiting Intractability: non-intractable Qualified Codes: R11.2 - Nausea with vomiting, unspecified LINDA THORPE MD July 14, 2016 00:23
[2016-07-14] MEDS ORDERED: IV NORMAL SALINE 1000ML BAG 1,000 ML IV SCH (00:45)
[2016-07-14] MEDS ORDERED: ONDANSETRON PF 4 MG/2 ML VIAL. IV ONE (00:45)
[2016-07-14] MEDS ORDERED: PANTOPRAZOLE IV PUSH 40 MG VIAL. IVP ONE (00:45)
[2016-07-14] MEDS ORDERED: LIDO:MAALOX:DONNATAL 1:1:1 15 ML SINGLE DOSE SWSW ONE (00:45)
[2016-07-14] MEDS: fentaNYL PF VIAL 100 MCG/2 ML VIAL IV PRN ×2 (00:46→01:54)
[2016-07-14 01:20] LABS: BASO # 0.1 x10^3/uL (0.0-0.2); BASO % 7 % (0-3); EOS % 2 % (0-3); HEMATOCRIT 26.3 % (39.0-53.0); HEMOGLOBIN 8.8 g/dL (13.0-17.5); LYMPH # 0.3 x10^3/uL (1.0-4.8); LYMPH % 29 % (24-48); MEAN CORPUSCULAR HEMOGLOBIN 28 pg (25-35); MEAN CORPUSCULAR HGB CONC 33 g/dL (31-37); MEAN CORPUSCULAR VOLUME 84 fL (79-100); MONO % 3 % (0-9); NEUT % 59 % (31-73); PLATELET COUNT 98 x10^3/uL (140-400); RED BLOOD COUNT 3.14 x10^6/uL (4.30-5.70); RED CELL DISTRIBUTION WIDTH 18.9 % (11.5-14.5)
[2016-07-14 01:23] LABS: WHITE BLOOD COUNT 0.9 x10^3/uL (4.0-11.0)
[2016-07-14 01:30] LABS: CALCIUM 8.2 mg/dL (8.5-10.1); CREATININE 0.8 mg/dL (0.7-1.3); POTASSIUM 3.8 mmol/L (3.5-5.1)
[2016-07-14 01:36] LABS: ALBUMIN 3.1 g/dL (3.4-5.0); ALBUMIN/GLOBULIN RATIO 0.8 (1.0-1.7); TOTAL BILIRUBIN 0.4 mg/dL (0.2-1.0); TOTAL PROTEIN 6.8 g/dL (6.4-8.2)
[2016-07-14 02:00] VITALS: BP 172/97
[2016-07-14 05:06] LABS: % BASOS 2 % (0-3); PLT ESTIMATE DECREASED (ADEQUATE)
[2016-07-14 05:07] LABS: ANISOCYTOSIS SLIGHT; POLYCHROMASIA SLIGHT; TOXIC GRANULATION MOD
--- NOTE | 2016-07-14 07:04 | EKG ---
[facility] [address] [place] [address] Test Date: 2016-07-14 Test Time: 00:39:57 Pat Name: TRI DE LA ROSA Department: Room: Gender: M Heavy Equipment Technician: : [id number] Requested By: LINDA THORPE Order Number: [id number] Reading MD: Rowan Rivas Measurements Intervals [place] Rate: 64 P: 49 NC: 168 QRS: 17 QRSD: 92 T: 12 QT: 418 QTc: 435 Interpretive Statements SINUS RHYTHM NORMAL EKG Electronically Signed On 07-14-2016 15:55:59 CDT by Rowan Rivas
--- NOTE | 2016-07-14 07:49 | RAD ---
EXAM: Abdomen acute complete. HISTORY: Pain. COMPARISON: 05/20/2016. FINDINGS: A frontal view the chest and frontal upright and supine views of the abdomen are obtained. There is no infiltrate, effusion or pneumothorax. The heart is normal in size. There is gas and stool within the colon. No abnormally dilated air-filled loop of small bowel seen. There is no free air. IMPRESSION: 1. No acute pulmonary finding. 2. Nonobstructive bowel gas pattern.
== END 2016-07-14 03:13 | disposition home or self-care (01) ==
LOC: ER 07-14 00:09
DX: R10.13 Epigastric pain (principal); D61.818 Other pancytopenia; R11.2 Nausea with vomiting, unspecified; G47.33 Obstructive sleep apnea (adult) (pediatric); I10 Essential (primary) hypertension; F10.20 Alcohol dependence, uncomplicated; Z85.118 Personal history of other malignant neoplasm of bronchus and lung; Z95.5 Presence of coronary angioplasty implant and graft; Z88.0 Allergy status to penicillin; Z91.018 Allergy to other foods
CPT/HCPCS: 36415; 74022; 80053; 83690; 85007; 85027; 93005; 96361; 96374; 96375; 96376; 99285; C9113; J2405; J3010; J7030

== ENCOUNTER → 2016-07-25 | Outpatient (CLI) | payer OTHER ==
[2016-06-25 11:00] VITALS: BP_DIAS 97
[2016-07-14 02:00] VITALS: BP_SYST 172
--- NOTE | 2016-07-25 10:30 | RAD ---
Indication restage lung malignancy. PET/CT was performed from the skull through the proximal thigh. CT was performed primarily for attenuation and localization purposes as opposed to primary diagnostic purposes. Note is made of a previous examination 04/18/2016. The blood sugar during the examination was 116. 13.6 mCi of FDG was administered. On CT the visualized brain appears unremarkable. No significant finding is seen in the neck. Large parenchymal mass seen previously in the right parahilar area with associated extensive mediastinal and hilar adenopathy has regressed substantially. No significant hilar or mediastinal adenopathy is seen on CT on today's exam. Some pleural-parenchymal scarring posteriorly at the right lung apex is noted. Coronary artery calcification is noted. An acute or significant finding in the abdomen or pelvis is not seen. There is possible cholelithiasis. Diverticulosis associated with the large bowel, most pronounced in the sigmoid colon, is noted. There is a small left adrenal mass, probably reflecting an adenoma. It is similar to the previous exam. On PET there has been substantial interval improvement. Markedly avid FDG parenchymal mass in the right upper lobe has regressed substantially. There is a much smaller parenchymal mass in the right upper lobe that is FDG avid with maximum SUV on the current examination of 5.1 representing improvement relative to the previous exam where the maximum SUV was 15.5. Immediately adjacent to the residual parenchymal mass in the right upper lobe are occasional right hilar nodes with similar FDG activity to the residual parenchymal mass in the right upper lobe. The bulky markedly avid FDG activity in right hilar and mediastinal lymph nodes seen previously has progressed substantially. No new finding is seen in the chest. The FDG is physiologically distributed in the abdomen and pelvis. No abnormal FDG activity is seen in the neck or visualized head. IMPRESSION: Substantial interval improvement. Right upper lobe parenchymal mass with associated extensive mediastinal and hilar adenopathy with markedly avid FDG activity, seen previously, has improved substantially. Only a small parenchymal mass persists in the right upper lobe on today's exam. Extensive adenopathy has regressed. Only a mildly active residual right hilar mass with some associated hilar lymph nodes are seen. Findings are compatible with a favorable therapeutic response. Maximum FDG activity on today's examination associated with the residual mass/hilar lymph nodes is approximately 5.1 where as previously it was 15.5
== END | disposition home or self-care (01) ==
LOC: PETSC 08:07
PROVIDERS: ATTEND Internal Medicine Hematology & Oncology
DX: C34.11 Malignant neoplasm of upper lobe, right bronchus or lung (principal)
CPT/HCPCS: 78815; A9552

== ENCOUNTER 2016-08-03 11:28 | Inpatient (IN) | payer OTHER ==
[~2016-08-03] VITALS: Ht 172.7 cm; Wt 108.4 kg
[~2016-08-03 11:28] MED LIST changes: +ASPI-612 PO; +ASPI-630 PO; -ASPI81TA2 PO; -ASPI81TA9 PO; -CALC500T50 PO; +CALC500T54 PO; -OXYC-250 PO; +OXYC-328 PO
[2016-08-03] MEDS ORDERED: MORPHINE SULFATE 4 MG/ML DISP.SYRIN. IV/SQ PRN (12:00)
[2016-08-03] MEDS ORDERED: ASPIRIN 325 MG TABLET PO ONE (12:00)
[2016-08-03] MEDS ORDERED: IPRATRPIUM/ALBUTEROL 0.5/2.5MG 3 ML NEBU. NEB ONE (12:00)
[2016-08-03 12:06] LABS: BASO # 0.1 x10^3/uL (0.0-0.2); BASO % 1 % (0-3); EOS % 0 % (0-3); HEMATOCRIT 25.2 % (39.0-53.0); HEMOGLOBIN 8.1 g/dL (13.0-17.5); LYMPH # 0.3 x10^3/uL (1.0-4.8); LYMPH % 2 % (24-48); MEAN CORPUSCULAR HEMOGLOBIN 27 pg (25-35); MEAN CORPUSCULAR HGB CONC 32 g/dL (31-37); MEAN CORPUSCULAR VOLUME 85 fL (79-100); MONO % 6 % (0-9); NEUT % 92 % (31-73); PLATELET COUNT 358 x10^3/uL (140-400); RED BLOOD COUNT 2.95 x10^6/uL (4.30-5.70); RED CELL DISTRIBUTION WIDTH 19.4 % (11.5-14.5); WHITE BLOOD COUNT 16.9 x10^3/uL (4.0-11.0)
--- NOTE | 2016-08-03 12:18 | EKG ---
[facility] [address] [place] [address] Test Date: 2016-08-03 Test Time: 11:36:23 Pat Name: TRI DE LA ROSA Department: Room: Gender: M Rehab Spec: : 1955 Requested By: MARTA LIU Order Number: [id number] Reading MD: Marcellus Segura Measurements Intervals [place] Rate: 102 P: 40 [place]: 140 QRS: -14 QRSD: 86 T: 28 QT: 328 QTc: 432 Interpretive Statements SINUS TACHYCARDIA LEFT ATRIAL ABNORMALITY R-S TRANSITION ZONE IN V LEADS DISPLACED TO THE LEFT QRS(T) CONTOUR ABNORMALITY CONSISTENT WITH INFERIOR INFARCT PROBABLY OLD RI6.01 Unconfirmed report Compared to ECG 07/14/2016 00:39:57 Atrial abnormality now present Myocardial infarct finding now present Sinus rhythm no longer present Electronically Signed On 08-05-2016 10:53:29 CDT by Marcellus Segura
[2016-08-03 12:21] LABS: CALCIUM 8.7 mg/dL (8.5-10.1); GFR 75.7
--- NOTE | 2016-08-03 12:28 | RAD ---
EXAM: Chest one view. HISTORY: Chest pain. Lung cancer. COMPARISON: 07/14/2016. 07/25/2016 FINDINGS: A frontal view of the chest is obtained. The right upper lobe is opacified medially, new since the prior study. There is no pneumothorax or pleural effusion. The heart is not enlarged. There are atherosclerotic calcifications of the aorta. IMPRESSION: 1. Atelectasis and consolidation medially in the right upper lobe since 07/25/2016. This is most likely postobstructive pneumonia/atelectasis rather than progression given rapid interval development.
[2016-08-03 12:29] LABS: ALBUMIN 2.1 g/dL (3.4-5.0); ALBUMIN/GLOBULIN RATIO 0.4 (1.0-1.7); INR 1.2 (0.8-1.1); TOTAL BILIRUBIN 0.4 mg/dL (0.2-1.0); TOTAL PROTEIN 7.3 g/dL (6.4-8.2)
[2016-08-03] MEDS ORDERED: VANCOMYCIN 2 GM in IV NORMAL SALINE 500ML BAG 500 ML IV ONE (13:00)
[2016-08-03] MEDS ORDERED: levOFLOXacin PER PHARMACY. MC PRN (13:00)
[2016-08-03] MEDS ORDERED: AZTREONAM 2 GM in IV NORMAL SALINE 100ML 100 ML IV ONE (13:00)
[2016-08-03 13:18] LABS: PLT ESTIMATE ADEQUATE (ADEQUATE)
[2016-08-03] MEDS ORDERED: MORPHINE SULFATE 2 MG/ML DISP.SYRIN. IV PRN (14:00)
[2016-08-03] MEDS ORDERED: ACETAMINOPHEN 325 MG TABLET. PO PRN (14:00)
[2016-08-03] MEDS ORDERED: ONDANSETRON PF 4 MG/2 ML VIAL. IV PRN (14:00)
[2016-08-03 14:18] VITALS: BP 154/89
[2016-08-03 15:00] VITALS: BP 116/87
[2016-08-03] MEDS ORDERED: CHOL500016 PO (15:04)
[2016-08-03] MEDS ORDERED: MAGN400C PO (15:04)
[2016-08-03] MEDS ORDERED: CALC-56 PO (15:04)
--- NOTE | 2016-08-03 15:24 | PHYS DOC ---
Past Medical History Past Medical History: Alcoholism, Cancer, Hypertension Additional Past Medical Histor: Seasonal allergies, ENRIKE, RAD & CHEMO FOR LUNG CA (stage 3) Past Surgical History: Other Additional Past Surgical Histo: Cardiac stent x 1,Stomach sleeve., R. knee,back ,hemeroid,liver abcess Alcohol Use: None Drug Use: None Adult General Chief Complaint Chief Complaint: CHEST PAIN HPI HPI Patient is a 60 year old male who presents with cough. The patient reports 3 day history of cough productive of yellow sputum with shortness of breath at rest. Reports substernal sharp chest pain only with coughing, nonradiating. He denies fevers/chills, lower extremity pain/swelling, nausea, diaphoresis. He has history of lung cancer having completed chemotherapy & between radiation cycles. He is a former smoker & does not use home oxygen. Oncologist is Dr. Polanco. Review of Systems Review of Systems Constitutional: Denies fever or chills Eyes: Denies change in visual acuity HENT: Denies nasal congestion or sore throat Respiratory: Reports cough & shortness of breath Cardiovascular: Reports chest pain, denies edema GI: Denies abdominal pain, nausea, vomiting, bloody stools or diarrhea : Denies dysuria or hematuria Musculoskeletal: Denies back pain or joint pain Integument: Denies rash or skin lesions Neurologic: Denies headache, focal weakness or sensory changes Current Medications Current Medications Current Medications Medications (Trade) Dose Ordered Sig/Ginny Start Time Stop Time Status Last Admin Dose Admin Albuterol/ Ipratropium (Duoneb) 3 ml 1X ONCE 08/03/16 12:00 08/03/16 12:01 DC 08/03/16 12:57 3 ML Aspirin (Edy Aspirin) 325 mg 1X ONCE 08/03/16 12:00 08/03/16 12:01 DC 08/03/16 12:10 325 MG Morphine Sulfate 4 mg PRN Q15MIN PRN 08/03/16 12:00 08/03/16 13:53 DC 08/03/16 12:11 4 MG Allergies Allergies Allergies Coded Allergies Type Severity Reaction Last Updated Verified Penicillins Allergy Intermediate RASH A CHILD 06/24/16 Yes soy Adverse Reaction Intermediate Nausea and Vomiting 06/24/16 Yes Physical Exam Physical Exam Constitutional: obese,, no acute distress, appears ill HENT: Normocephalic, atraumatic, bilateral external ears normal, oropharynx moist, no tonsillar enlargement/exudate, nose normal. Eyes: conjunctiva normal, no discharge. Neck: supple, no stridor. Cardiovascular: RRR, no murmurs, no edema. Lungs & Thorax: LCTAB, diminished in bases bilaterally, no wheezing, no respiratory distress. no reproducible tenderness with palpation over the sternum. Abdomen: soft, nontender, nondistended. Skin: Warm, dry, no erythema, no rash. Back: No tenderness. Extremities: No tenderness, no edema. no calf tenderness or swelling. Neurologic: Alert and oriented X 3, no focal deficits noted. Psychologic: flat affect Current Patient Data Vital Signs Vital Signs Date Time Temp Pulse Resp B/P (MAP) Pulse Ox O2 Delivery O2 Flow Rate FiO2 08/03/16 12:38 83 22 119/74 (89) 92 Room Air 08/03/16 11:48 98.4 98.4 Lab Values Laboratory Tests Test 08/03/16 11:38 White Blood Count 16.9 x10^3/uL (4.0-11.0) H Red Blood Count 2.95 x10^6/uL (4.30-5.70) L Hemoglobin 8.1 g/dL (13.0-17.5) L Hematocrit 25.2 % (39.0-53.0) L Mean Corpuscular Volume 85 fL (79-100) Mean Corpuscular Hemoglobin 27 pg (25-35) Mean Corpuscular Hemoglobin Concent 32 g/dL (31-37) Red Cell Distribution Width 19.4 % (11.5-14.5) H Platelet Count 358 x10^3/uL (140-400) # Neutrophils (%) (Auto) 92 % (31-73) H Lymphocytes (%) (Auto) 2 % (24-48) L Monocytes (%) (Auto) 6 % (0-9) Eosinophils (%) (Auto) 0 % (0-3) Basophils (%) (Auto) 1 % (0-3) Neutrophils # (Auto) 15.5 x10^3uL (1.8-7.7) H Lymphocytes # (Auto) 0.3 x10^3/uL (1.0-4.8) L Monocytes # (Auto) 0.9 x10^3/uL (0.0-1.1) Eosinophils # (Auto) 0.0 x10^3/uL (0.0-0.7) Basophils # (Auto) 0.1 x10^3/uL (0.0-0.2) Segmented Neutrophils % 95 % (35-66) H Band Neutrophils % 2 % (0-9) Lymphocytes % 3 % (24-48) L Platelet Estimate Adequate (ADEQUATE) Prothrombin Time 14.0 SEC (11.7-14.0) Prothrombin Time INR 1.2 (0.8-1.1) H PTT 35 SEC (24-38) Sodium Level 137 mmol/L (136-145) Potassium Level 4.0 mmol/L (3.5-5.1) Chloride Level 101 mmol/L (98-107) Carbon Dioxide Level 26 mmol/L (21-32) Anion Gap 10 (6-14) Blood Urea Nitrogen 11 mg/dL (8-26) Creatinine 1.0 mg/dL (0.7-1.3) Estimated GFR (Cockcroft-Gault) 75.7 BUN/Creatinine Ratio 11 (6-20) Glucose Level 196 mg/dL (70-99) H Calcium Level 8.7 mg/dL (8.5-10.1) Total Bilirubin 0.4 mg/dL (0.2-1.0) Aspartate Amino Transferase (AST) 19 U/L (15-37) Alanine Aminotransferase (ALT) 12 U/L (16-63) L Alkaline Phosphatase 82 U/L (46-116) Troponin I Quantitative < 0.017 ng/mL (0.000-0.055) PW-Mvu-H-Type Natriuretic Peptide 1345 pg/mL (0-124) H Total Protein 7.3 g/dL (6.4-8.2) Albumin 2.1 g/dL (3.4-5.0) L Albumin/Globulin Ratio 0.4 (1.0-1.7) L Laboratory Tests 08/03/16 11:38 Laboratory Tests 08/03/16 11:38 EKG EKG Interpreted by me: Sinus tachycardia rate 102, no acute ST or T wave changes, Q waves in leads 3 and aVF, normal intervals, no ectopy, some artifactual wandering baseline. [] Radiology/Procedures Radiology/Procedures PROCEDURE: CHEST AP ONLY EXAM: Chest one view. HISTORY: Chest pain. Lung cancer. COMPARISON: 07/14/2016. 07/25/2016 FINDINGS: A frontal view of the chest is obtained. The right upper lobe is opacified medially, new since the prior study. There is no pneumothorax or pleural effusion. The heart is not enlarged. There are atherosclerotic calcifications of the aorta. IMPRESSION: 1. Atelectasis and consolidation medially in the right upper lobe since 07/25/2016. This is most likely postobstructive pneumonia/atelectasis rather than progression given rapid interval development. DICTATED and SIGNED BY: BYRON ESTRADA MD DATE: 08/03/16 1222[] Course & Med Decision Making Course & Med Decision Making Pertinent Labs and Imaging studies reviewed. (See chart for details) The patient presents with chest pain & cough. Initially complained & triaged with chest pain, gave aspirin & morphine. Symptoms ultimately seem more related to cough & shortness of breath, CXR shows infiltrate. He had leukocytosis, initially mildly tachycardic but improved with treatment here. Therefore not SIRS/sepsis, did not give aggressive IVF hydration, but will give broad spectrum antibiotics & obtain blood culture due to HCAP. Recommend admission to the hospital for further evaluation & treatment. He agrees with plan of care. Discussed with Dr. Steinberg who agrees to admit to inpatient status. Pulmonary consult to Dr. Mcarthur, oncology consult to Dr. Polanco. The patient is admitted in stable condition. [] Dragon Disclaimer Dragon Disclaimer This electronic medical record was generated, in whole or in part, using a voice recognition dictation system. Departure Departure Impression: Primary Impression: HAP (hospital-acquired pneumonia) Additional Impressions: Chest pain Lung cancer Leukocytosis Anemia Elevated brain natriuretic peptide (BNP) level Disposition: ADMITTED INPATIENT Admitting Physician: Rachel Steinberg Condition: STABLE Referrals: ALBIN JETER DO (PCP) Problem Qualifiers MARTA LIU MD Aug 03, 2016 15:24
[2016-08-03] MEDS: IPRATRPIUM/ALBUTEROL 0.5/2.5MG 3 ML NEBU. NEB SCH ×2 (16:00→20:12)
[2016-08-03] MEDS: VANCOMYCIN PER PHARMACY MC PRN (16:04)
[2016-08-03 19:00] VITALS: BP 135/80
[2016-08-03] MEDS ORDERED: DEXTROSE 50% 25 GM / 50ML DISP.SYRIN. IV PRN (19:15)
--- NOTE | 2016-08-03 19:15 | PDOC1 ---
History and Physical Date of Admission Date of Admission DATE: 08/03/16 TIME: 19:08 Identification/Chief Complaint Chief Complaint cough, dyspnea Problems: Source Source: Chart review, Patient History of Present Illness History of Present Illness Mr. Blair came to the ER today for worsening dyspnea and cough. He could not sleep last 2 nights due to cough and wheeze, he almost described as stridor. Dyspnea, worse the past 3 days recently completed lung cancer therapy which he described as very effective, and report that the cancer is fully treated he feels better now on the floor after IV abx and nebs treatment givne, no pain He has worked as a rear load truck driver, has taken off the past few months, and plans early detention now Past Medical History Cardiovascular: No pertinent hx Pulmonary: No pertinent hx GI: No pertinent hx Heme/Onc: Cancer Past Surgical History Past Surgical History: No pertinent history Family History Family History: No Significant Social History Smoke: No ALCOHOL: none Drugs: None Current Medications Current Medications Current Medications Albuterol/ Ipratropium (Duoneb) 3 ml 1X ONCE NEB Last administered on 12:57; Start 08/03/16 at 12:00; Stop 08/03/16 at 12:01; Status DC Aspirin (Edy Aspirin) 325 mg 1X ONCE PO Last administered on 08/03/16 12:10 ; Start 08/03/16 at 12:00; Stop 08/03/16 at 12:01; Status DC Morphine Sulfate 4 mg PRN Q15MIN PRN IV/SQ PAIN GREATER THAN 3/10 Last administered on 08/03/16 12:11; Start 08/03/16 at 12:00; Stop 08/03/16 at 13:53 ; Status DC Vancomycin HCl (Vanco Per Pharmacy) 1 each PRN DAILY PRN MC SEE COMMENTS Last administered on 08/03/16 16:04; Start 08/03/16 at 13:00 Levofloxacin/ Dextrose (Levaquin Per Pharmacy) 1 each PRN DAILY PRN MC SEE COMMENTS; Start 08/03/16 at 13:00 Aztreonam 2 gm/ Sodium Chloride 100 ml @ 200 mls/hr 1X ONCE IV Last administered on 08/03/16 14:45; Start 08/03/16 at 13:00; Stop 08/03/16 at 13:29 ; Status DC Vancomycin HCl 2 gm/Sodium Chloride 500 ml @ 250 mls/hr 1X ONCE IV Last administered on 08/03/16t 15:28; Start 08/03/16 at 13:00; Stop 08/03/16 at 14:59 ; Status DC Levofloxacin/ Dextrose 150 ml @ 100 mls/hr Q24H IV Last administered on t 13:13; Start 08/03/16 at 13:00 Ondansetron HCl (Zofran) 4 mg PRN Q8HRS PRN IV NAUSEA/VOMITING; Start 08/03/16 at 14:00; Stop 08/04/16 at 13:59 Morphine Sulfate 2 mg PRN Q2HR PRN IV PAIN; Start 08/03/16 at 14:00; Stop 08/04 at 13:59 Acetaminophen (Tylenol) 650 mg PRN Q4HRS PRN PO FEVER; Start 08/03/16 at 14:00 ; Stop 08/04/16 at 13:59 Albuterol/ Ipratropium (Duoneb) 3 ml RTQID NEB ; Start 08/03/16 at 16:00; Stop 08/04/16 at 15:59 Vancomycin HCl 1.5 gm/Sodium Chloride 500 ml @ 250 mls/hr Q12H IV ; Start 08/04 at 03:00 Vancomycin HCl 1 each 1X ONCE MC ; Start 08/05/16 at 02:30; Stop 08/05/16 at 02 :31 Active Scripts Active Reported Vitamin D3 (Cholecalciferol (Vitamin D3)) 5,000 Unit Tablet 1 Tab PO HS Magnesium (Magnesium Oxide) 400 Mg Capsule 1 Cap PO TID Calcium 500 + Vit D 200 Caplet (Calcium Carbonate/Vitamin D3) 1 Each Tablet 2 Ea PO BID Losartan Potassium 50 Mg Tablet 50 Mg PO DAILY Aspirin Ec (Aspirin) 81 Mg Tablet.dr 1 Tab PO DAILY Lipitor (Atorvastatin Calcium) 40 Mg Tablet 40 Mg PO HS Celebrex (Celecoxib) 200 Mg Capsule 200 Mg PO DAILY Allergies Allergies: Coded Allergies: Penicillins (Verified Allergy, Intermediate, RASH A CHILD, 06/24/16) soy (Verified Adverse Reaction, Intermediate, Nausea and Vomiting, 06/24/16) soy marquez oil ROS General: YES: Fatigue, Malaise, No: Chills, Night Sweats, Appetite, Other PSYCHOLOGICAL ROS: YES: Sleep disturbances, No: Anxiety, Behavioral Disorder, Concentration difficultie, Decreased libido , Depression, Disorientation, Hallucinations, Hostility, Irritablity, Memory difficulties, Mood Swings, Obsessive thoughts, Other Eyes: No Blurry vision, No Decreased vision, No Double vision, No Dry eyes, No Excessive tearing, No Eye Pain, No Itchy Eyes, No Loss of vision, No Photophobia , No Scotomata, No Uses contacts, No Uses glasses, No Other HEENT: YES: Heacaches, No: Visual Changes, Hearing change, Nasal congestion, Nasal discharge, Oral lesions, Sinus pain, Sore Throat, Epistaxis, Sneezing, Snoring, Tinnitus, Vertigo, Vocal changes, Other Respiratory: YES: Cough, Tachypnea, Wheezing, No: Hemoptysis, Orthopnea, Pleuritic Pain, Shortness of breath, SOB with excertion, Sputum Changes, Stridor, Other Cardiovascular: No Chest Pain, No Palpitations, No Orthopnea, No Paroxysmal Noc. Dyspnea, No Edema, No Lt Headedness, No Other Gastrointestinal: Yes Nausea, No Vomiting, No Abdominal Pain, No Diarrhea, No Constipation, No Melena, No Hematochezia, No Other Genitourinary: No Dysuria, No Frequency, No Incontinence, No Hematuria, No Retention, No Discharge, No Urgency, No Pain, No Flank Pain, No Other, No , No , No , No , No , No , No Musculoskeletal: No Gait Disturbance, No Joint Pain, No Joint Stiffness, No Joint Swelling, No Muscle Pain, No Muscular Weakness, No Pain In:, No Swelling In:, No Other Neurological: No Behavorial Changes, No Bowel/Bladder ControlChng, No Confusion , No Dizziness, No Gait Disturbance, No Headaches, No Impaired Coord/balance, No Memory Loss, No Numbness/Tingling, No Seizures, No Speech Problems, No Tremors, No Visual Changes, No Weakness, No Other Skin: No Dry Skin, No Eczema, No Hair Changes, No Lumps, No Mole Changes, No Mottling, No Nail Changes, No Pruritus, No Rash, No Skin Lesion Changes, No Other, No Acne Physical Exam General: Alert, Oriented X3, Cooperative HEENT: Atraumatic, PERRLA Lungs: Normal air movement, Other (rales, no wheeze, cough induced by deep breaths) Heart: S1S2, RRR Abdomen: Normal bowel sounds, Soft Rectal Exam: not examined Extremities: No cyanosis, No edema, Normal pulses Skin: No rashes Neuro: Normal speech, Normal tone, Sensation intact Psych/Mental Status: Mental status NL, Mood NL Vitals Vitals Vital Signs Date Time Temp Pulse Resp B/P (MAP) Pulse Ox O2 Delivery O2 Flow Rate FiO2 08/03/16 15:00 Room Air 08/03/16 15:00 97.9 87 18 116/87 (97) 97 97.9 Labs Labs Laboratory Tests Test 08/03/16 11:38 White Blood Count 16.9 x10^3/uL (4.0-11.0) Red Blood Count 2.95 x10^6/uL (4.30-5.70) Hemoglobin 8.1 g/dL (13.0-17.5) Hematocrit 25.2 % (39.0-53.0) Mean Corpuscular Volume 85 fL (79-100) Mean Corpuscular Hemoglobin 27 pg (25-35) Mean Corpuscular Hemoglobin Concent 32 g/dL (31-37) Red Cell Distribution Width 19.4 % (11.5-14.5) Platelet Count 358 x10^3/uL (140-400) Neutrophils (%) (Auto) 92 % (31-73) Lymphocytes (%) (Auto) 2 % (24-48) Monocytes (%) (Auto) 6 % (0-9) Eosinophils (%) (Auto) 0 % (0-3) Basophils (%) (Auto) 1 % (0-3) Neutrophils # (Auto) 15.5 x10^3uL (1.8-7.7) Lymphocytes # (Auto) 0.3 x10^3/uL (1.0-4.8) Monocytes # (Auto) 0.9 x10^3/uL (0.0-1.1) Eosinophils # (Auto) 0.0 x10^3/uL (0.0-0.7) Basophils # (Auto) 0.1 x10^3/uL (0.0-0.2) Segmented Neutrophils % 95 % (35-66) Band Neutrophils % 2 % (0-9) Lymphocytes % 3 % (24-48) Platelet Estimate Adequate (ADEQUATE) Prothrombin Time 14.0 SEC (11.7-14.0) Prothromb Time International Ratio 1.2 (0.8-1.1) Activated Partial Thromboplast Time 35 SEC (24-38) Sodium Level 137 mmol/L (136-145) Potassium Level 4.0 mmol/L (3.5-5.1) Chloride Level 101 mmol/L (98-107) Carbon Dioxide Level 26 mmol/L (21-32) Anion Gap 10 (6-14) Blood Urea Nitrogen 11 mg/dL (8-26) Creatinine 1.0 mg/dL (0.7-1.3) Estimated GFR (Cockcroft-Gault) 75.7 BUN/Creatinine Ratio 11 (6-20) Glucose Level 196 mg/dL (70-99) Calcium Level 8.7 mg/dL (8.5-10.1) Total Bilirubin 0.4 mg/dL (0.2-1.0) Aspartate Amino Transf (AST/SGOT) 19 U/L (15-37) Alanine Aminotransferase (ALT/SGPT) 12 U/L (16-63) Alkaline Phosphatase 82 U/L (46-116) Troponin I Quantitative < 0.017 ng/mL (0.000-0.055) FV-The-P-Type Natriuretic Peptide 1345 pg/mL (0-124) Total Protein 7.3 g/dL (6.4-8.2) Albumin 2.1 g/dL (3.4-5.0) Albumin/Globulin Ratio 0.4 (1.0-1.7) Laboratory Tests Test 08/03/16 11:38 White Blood Count 16.9 x10^3/uL (4.0-11.0) Red Blood Count 2.95 x10^6/uL (4.30-5.70) Hemoglobin 8.1 g/dL (13.0-17.5) Hematocrit 25.2 % (39.0-53.0) Mean Corpuscular Volume 85 fL (79-100) Mean Corpuscular Hemoglobin 27 pg (25-35) Mean Corpuscular Hemoglobin Concent 32 g/dL (31-37) Red Cell Distribution Width 19.4 % (11.5-14.5) Platelet Count 358 x10^3/uL (140-400) Neutrophils (%) (Auto) 92 % (31-73) Lymphocytes (%) (Auto) 2 % (24-48) Monocytes (%) (Auto) 6 % (0-9) Eosinophils (%) (Auto) 0 % (0-3) Basophils (%) (Auto) 1 % (0-3) Neutrophils # (Auto) 15.5 x10^3uL (1.8-7.7) Lymphocytes # (Auto) 0.3 x10^3/uL (1.0-4.8) Monocytes # (Auto) 0.9 x10^3/uL (0.0-1.1) Eosinophils # (Auto) 0.0 x10^3/uL (0.0-0.7) Basophils # (Auto) 0.1 x10^3/uL (0.0-0.2) Segmented Neutrophils % 95 % (35-66) Band Neutrophils % 2 % (0-9) Lymphocytes % 3 % (24-48) Platelet Estimate Adequate (ADEQUATE) Prothrombin Time 14.0 SEC (11.7-14.0) Prothromb Time International Ratio 1.2 (0.8-1.1) Activated Partial Thromboplast Time 35 SEC (24-38) Sodium Level 137 mmol/L (136-145) Potassium Level 4.0 mmol/L (3.5-5.1) Chloride Level 101 mmol/L (98-107) Carbon Dioxide Level 26 mmol/L (21-32) Anion Gap 10 (6-14) Blood Urea Nitrogen 11 mg/dL (8-26) Creatinine 1.0 mg/dL (0.7-1.3) Estimated GFR (Cockcroft-Gault) 75.7 BUN/Creatinine Ratio 11 (6-20) Glucose Level 196 mg/dL (70-99) Calcium Level 8.7 mg/dL (8.5-10.1) Total Bilirubin 0.4 mg/dL (0.2-1.0) Aspartate Amino Transf (AST/SGOT) 19 U/L (15-37) Alanine Aminotransferase (ALT/SGPT) 12 U/L (16-63) Alkaline Phosphatase 82 U/L (46-116) Troponin I Quantitative < 0.017 ng/mL (0.000-0.055) LY-Awi-D-Type Natriuretic Peptide 1345 pg/mL (0-124) Total Protein 7.3 g/dL (6.4-8.2) Albumin 2.1 g/dL (3.4-5.0) Albumin/Globulin Ratio 0.4 (1.0-1.7) VTE Prophylaxis Ordered VTE Prophylaxis Devices: Yes VTE Pharmacological Prophylaxi: Yes Assessment/Plan Assessment/Plan Pnuemonia, post obstructive possible per CXR, prior scar also sepsis, leukocytosis and tachycardia, improved - broad abx started recent lung cancer, s/p treatment anemia of chronic disease moderate malnutrition, prior gastric sleeve. DM2, weight loss with Ca treatment admit LESLYE VARGAS MD Aug 03, 2016 19:14
[2016-08-03] MEDS: ATORVASTATIN CALCIUM 40 MG TABLET. PO SCH (20:39)
[2016-08-03] MEDS: MAGNESIUM OXIDE 400 MG TABLET PO SCH (20:39)
[2016-08-03 23:00] VITALS: BP 145/84
[2016-08-04] VITALS (10 sets, daily range): BP systolic 137–164; BP diastolic 82–93
[2016-08-04] MEDS: VANCOMYCIN 1.5 GM in IV NORMAL SALINE 500ML BAG 500 ML IV SCH ×2 (02:51→14:47)
[2016-08-04 05:09] LABS: BASO # 0.1 x10^3/uL (0.0-0.2); BASO % 1 % (0-3); EOS % 0 % (0-3); HEMATOCRIT 21.7 % (39.0-53.0); LYMPH # 0.5 x10^3/uL (1.0-4.8); LYMPH % 4 % (24-48); MEAN CORPUSCULAR HEMOGLOBIN 28 pg (25-35); MEAN CORPUSCULAR HGB CONC 32 g/dL (31-37); MEAN CORPUSCULAR VOLUME 88 fL (79-100); MONO % 10 % (0-9); NEUT % 86 % (31-73); PLATELET COUNT 279 x10^3/uL (140-400); RED BLOOD COUNT 2.47 x10^6/uL (4.30-5.70); RED CELL DISTRIBUTION WIDTH 20.6 % (11.5-14.5); WHITE BLOOD COUNT 14.4 x10^3/uL (4.0-11.0)
[2016-08-04 05:28] LABS: CALCIUM 8.3 mg/dL (8.5-10.1); CREATININE 0.9 mg/dL (0.7-1.3); GFR 85.5; POTASSIUM 4.1 mmol/L (3.5-5.1)
[2016-08-04 05:30] LABS: HEMOGLOBIN 6.9 g/dL (13.0-17.5)
[2016-08-04] MEDS ORDERED: ACETAMINOPHEN 325 MG TABLET. PO PRN (06:00)
[2016-08-04] MEDS: IPRATRPIUM/ALBUTEROL 0.5/2.5MG 3 ML NEBU. NEB SCH ×4 (06:08→19:25)
[2016-08-04] MEDS ORDERED: INSULIN ASPART 300 UNITS/3 ML INSULN.PEN SQ SCH (08:00)
[2016-08-04] MEDS: MAGNESIUM OXIDE 400 MG TABLET PO SCH ×3 (09:06→21:51)
[2016-08-04] MEDS: CELECOXIB 200 MG CAPSULE. PO SCH (09:06)
[2016-08-04] MEDS: LOSARTAN POTASSIUM 50 MG TABLET. PO SCH (09:07)
[2016-08-04] MEDS: ASPIRIN ENTERIC COATED 81 MG TABLET.DR. PO SCH (09:07)
--- NOTE | 2016-08-04 10:12 | ACF ---
Admission Forms Criteria PNEUMONIA, HOSPITAL-ACQUIRED AND ATELECTASIS Clinical Indications for Inpatient Care (Place 'X' for any and all applicable criteria): Ongoing inpatient care may be indicated for hospital-acquired atelectasis or pneumonia[N] with ANY ONE of the following(2)(5)(47)(48)(49): [ ]I. Mechanical ventilation [N] [ ]II. Temperature less than 35 degrees C (95 degrees F) or greater than 39.5 degrees C (103.1 degrees F) [ ]III. Tachypnea (eg, respiratory rate greater than 30 breaths per minute) [ ]IV. Hemodynamic instability [X]V. Respiratory distress [ ]. Significant hypoxemia as indicated by ANY ONE of the following: [ ]a) Previously normal respiratory status with ANY ONE of the following: [ ]i) SaO2 less than 90% or PO2 less than 60 mm Hg (8.0 kPa )) on room air [ ]ii) Oxygen required to keep SaO2 greater than 90% [ ]b) Chronic baseline hypoxemia with significant deterioration (eg, O2 saturation decrease more than 5%) [ ]c) Required supplemental oxygen performable only in acute inpatient setting [ ]VII. Significant hypoventilation as indicated by ANY ONE of the following: [ ]a) Previously normal with PCO2 greater than 42 mm Hg (5.6 kPa) and pH less than 7.35 [ ]b) Documented PCO2 increase greater than 5 mm Hg (0.7 kPa) from disease baseline [ ]VIII.Severe secretion production requiring frequent suctioning Extended stay beyond goal length of stay for primary condition may be needed until ALL of the following are present(28)(29): [ ]a) Microbiologic cause of infection identified and appropriate antibiotic treatment in place, or satisfactory clinical response to empiric antibiotic therapy [ ]b) Hemodynamic stability [ ]c) No requirement for supplemental oxygen performable only in acute inpatient setting [ ]d) Chest tube absent or chest catheter management regimen established for next level of care [ ]e) Suctioning, pulmonary toilet, or other therapy performable at a lower level of care [ ]f) Fever absent, improved, or manageable at lower level of care [ ]g) Medical comorbidities manageable at a lower level of care The original [facility] content created by Darryl Engel has been revised. The portions of the content which have been revised are identified through the use of italic text or in bold, and [facility] has neither reviewed nor approved the modified material. All other unmodified content is copyright [facility] Please see references footnoted in the original [facility] edition 2016 Admission Criteria Met?: Yes HIEU WAGNER Aug 04, 2016 10:12
[2016-08-04] MEDS: methylPREDNISolone SOD SUCC PF 40 MG/ML VIAL. IV SCH ×3 (10:15→22:14)
[2016-08-04] MEDS ORDERED: PANTOPRAZOLE 40 MG TABLET.DR. PO ONE (10:15)
--- NOTE | 2016-08-04 10:17 | PDOC ---
Provider Note Provider Note [id number] acute resp fail abnl cxr pneumonia ae of copd see orders ROMAN MARTIN MD Aug 04, 2016 10:17
--- NOTE | 2016-08-04 10:22 | PDOC ---
PROGRESS NOTES Chief Complaint Chief Complaint Pneumonia, post obstructive possible per CXR, prior scar also sepsis, leukocytosis and tachycardia, improved - broad abx recent lung cancer, s/p treatment anemia of chronic disease, moderate malnutrition, prior gastric sleeve. DM2, History of Present Illness History of Present Illness feels better, less cough will liberalize diet, regular due to low albumin, pt preference, cont IV abx anemia worse today, fluid and acute illness, will transfuse 1 PRBC, discussed at length with pt. Vitals Vitals Vital Signs Date Time Temp Pulse Resp B/P (MAP) Pulse Ox O2 Delivery O2 Flow Rate FiO2 08/04/16 10:08 97.7 82 18 149/87 97.7 08/04/16 07:00 94 Room Air 08/04/16 06:09 2.0 Physical Exam General: Alert, Oriented X3, Cooperative Lungs: Clear Abdomen: Normal bowel sounds, Soft Extremities: No cyanosis, No edema, Normal pulses Skin: No rashes Labs LABS Laboratory Tests Test 08/03/16 11:38 08/03/16 19:25 08/03/16 20:31 08/04/16 03:38 White Blood Count 16.9 x10^3/uL (4.0-11.0) 14.4 x10^3/uL (4.0-11.0) Red Blood Count 2.95 x10^6/uL (4.30-5.70) 2.47 x10^6/uL (4.30-5.70) Hemoglobin 8.1 g/dL (13.0-17.5) 6.9 g/dL (13.0-17.5) Hematocrit 25.2 % (39.0-53.0) 21.7 % (39.0-53.0) Mean Corpuscular Volume 85 fL (79-100) 88 fL (79-100) Mean Corpuscular Hemoglobin 27 pg (25-35) 28 pg (25-35) Mean Corpuscular Hemoglobin Concent 32 g/dL (31-37) 32 g/dL (31-37) Red Cell Distribution Width 19.4 % (11.5-14.5) 20.6 % (11.5-14.5) Platelet Count 358 x10^3/uL (140-400) 279 x10^3/uL (140-400) Neutrophils (%) (Auto) 92 % (31-73) 86 % (31-73) Lymphocytes (%) (Auto) 2 % (24-48) 4 % (24-48) Monocytes (%) (Auto) 6 % (0-9) 10 % (0-9) Eosinophils (%) (Auto) 0 % (0-3) 0 % (0-3) Basophils (%) (Auto) 1 % (0-3) 1 % (0-3) Neutrophils # (Auto) 15.5 x10^3uL (1.8-7.7) 12.4 x10^3uL (1.8-7.7) Lymphocytes # (Auto) 0.3 x10^3/uL (1.0-4.8) 0.5 x10^3/uL (1.0-4.8) Monocytes # (Auto) 0.9 x10^3/uL (0.0-1.1) 1.4 x10^3/uL (0.0-1.1) Eosinophils # (Auto) 0.0 x10^3/uL (0.0-0.7) 0.0 x10^3/uL (0.0-0.7) Basophils # (Auto) 0.1 x10^3/uL (0.0-0.2) 0.1 x10^3/uL (0.0-0.2) Segmented Neutrophils % 95 % (35-66) Band Neutrophils % 2 % (0-9) Lymphocytes % 3 % (24-48) Platelet Estimate Adequate (ADEQUATE) Prothrombin Time 14.0 SEC (11.7-14.0) Prothromb Time International Ratio 1.2 (0.8-1.1) Activated Partial Thromboplast Time 35 SEC (24-38) Sodium Level 137 mmol/L (136-145) 140 mmol/L (136-145) Potassium Level 4.0 mmol/L (3.5-5.1) 4.1 mmol/L (3.5-5.1) Chloride Level 101 mmol/L (98-107) 103 mmol/L (98-107) Carbon Dioxide Level 26 mmol/L (21-32) 27 mmol/L (21-32) Anion Gap 10 (6-14) 10 (6-14) Blood Urea Nitrogen 11 mg/dL (8-26) 14 mg/dL (8-26) Creatinine 1.0 mg/dL (0.7-1.3) 0.9 mg/dL (0.7-1.3) Estimated GFR (Cockcroft-Gault) 75.7 85.5 BUN/Creatinine Ratio 11 (6-20) Glucose Level 196 mg/dL (70-99) 76 mg/dL (70-99) Calcium Level 8.7 mg/dL (8.5-10.1) 8.3 mg/dL (8.5-10.1) Total Bilirubin 0.4 mg/dL (0.2-1.0) Aspartate Amino Transf (AST/SGOT) 19 U/L (15-37) Alanine Aminotransferase (ALT/SGPT) 12 U/L (16-63) Alkaline Phosphatase 82 U/L (46-116) Troponin I Quantitative < 0.017 ng/mL (0.000-0.055) < 0.017 ng/mL (0.000-0.055) < 0.017 ng/mL (0.000-0.055) HG-Joz-M-Type Natriuretic Peptide 1345 pg/mL (0-124) Total Protein 7.3 g/dL (6.4-8.2) Albumin 2.1 g/dL (3.4-5.0) Albumin/Globulin Ratio 0.4 (1.0-1.7) Glucose (Fingerstick) 112 mg/dL (70-99) Test 08/04/16 07:28 Glucose (Fingerstick) 92 mg/dL (70-99) Review of Systems Review of Systems no n/v/d Assessment and Plan Assessmemt and Plan Problems Medical Problems: (1) Anemia Status: Acute (2) Chest pain Status: Acute (3) Elevated brain natriuretic peptide (BNP) level Status: Acute (4) Leukocytosis Status: Acute (5) Lung cancer Status: Acute Problems: Comment Review of Relevant I have reviewed the following items tra (where applicable) has been applied. Labs Laboratory Tests Test 08/03/16 11:38 08/03/16 19:25 08/03/16 20:31 08/04/16 03:38 White Blood Count 16.9 x10^3/uL (4.0-11.0) 14.4 x10^3/uL (4.0-11.0) Red Blood Count 2.95 x10^6/uL (4.30-5.70) 2.47 x10^6/uL (4.30-5.70) Hemoglobin 8.1 g/dL (13.0-17.5) 6.9 g/dL (13.0-17.5) Hematocrit 25.2 % (39.0-53.0) 21.7 % (39.0-53.0) Mean Corpuscular Volume 85 fL (79-100) 88 fL (79-100) Mean Corpuscular Hemoglobin 27 pg (25-35) 28 pg (25-35) Mean Corpuscular Hemoglobin Concent 32 g/dL (31-37) 32 g/dL (31-37) Red Cell Distribution Width 19.4 % (11.5-14.5) 20.6 % (11.5-14.5) Platelet Count 358 x10^3/uL (140-400) 279 x10^3/uL (140-400) Neutrophils (%) (Auto) 92 % (31-73) 86 % (31-73) Lymphocytes (%) (Auto) 2 % (24-48) 4 % (24-48) Monocytes (%) (Auto) 6 % (0-9) 10 % (0-9) Eosinophils (%) (Auto) 0 % (0-3) 0 % (0-3) Basophils (%) (Auto) 1 % (0-3) 1 % (0-3) Neutrophils # (Auto) 15.5 x10^3uL (1.8-7.7) 12.4 x10^3uL (1.8-7.7) Lymphocytes # (Auto) 0.3 x10^3/uL (1.0-4.8) 0.5 x10^3/uL (1.0-4.8) Monocytes # (Auto) 0.9 x10^3/uL (0.0-1.1) 1.4 x10^3/uL (0.0-1.1) Eosinophils # (Auto) 0.0 x10^3/uL (0.0-0.7) 0.0 x10^3/uL (0.0-0.7) Basophils # (Auto) 0.1 x10^3/uL (0.0-0.2) 0.1 x10^3/uL (0.0-0.2) Segmented Neutrophils % 95 % (35-66) Band Neutrophils % 2 % (0-9) Lymphocytes % 3 % (24-48) Platelet Estimate Adequate (ADEQUATE) Prothrombin Time 14.0 SEC (11.7-14.0) Prothromb Time International Ratio 1.2 (0.8-1.1) Activated Partial Thromboplast Time 35 SEC (24-38) Sodium Level 137 mmol/L (136-145) 140 mmol/L (136-145) Potassium Level 4.0 mmol/L (3.5-5.1) 4.1 mmol/L (3.5-5.1) Chloride Level 101 mmol/L (98-107) 103 mmol/L (98-107) Carbon Dioxide Level 26 mmol/L (21-32) 27 mmol/L (21-32) Anion Gap 10 (6-14) 10 (6-14) Blood Urea Nitrogen 11 mg/dL (8-26) 14 mg/dL (8-26) Creatinine 1.0 mg/dL (0.7-1.3) 0.9 mg/dL (0.7-1.3) Estimated GFR (Cockcroft-Gault) 75.7 85.5 BUN/Creatinine Ratio 11 (6-20) Glucose Level 196 mg/dL (70-99) 76 mg/dL (70-99) Calcium Level 8.7 mg/dL (8.5-10.1) 8.3 mg/dL (8.5-10.1) Total Bilirubin 0.4 mg/dL (0.2-1.0) Aspartate Amino Transf (AST/SGOT) 19 U/L (15-37) Alanine Aminotransferase (ALT/SGPT) 12 U/L (16-63) Alkaline Phosphatase 82 U/L (46-116) Troponin I Quantitative < 0.017 ng/mL (0.000-0.055) < 0.017 ng/mL (0.000-0.055) < 0.017 ng/mL (0.000-0.055) MO-Pmr-U-Type Natriuretic Peptide 1345 pg/mL (0-124) Total Protein 7.3 g/dL (6.4-8.2) Albumin 2.1 g/dL (3.4-5.0) Albumin/Globulin Ratio 0.4 (1.0-1.7) Glucose (Fingerstick) 112 mg/dL (70-99) Test 08/04/16 07:28 Glucose (Fingerstick) 92 mg/dL (70-99) Laboratory Tests Test 08/03/16 11:38 08/03/16 19:25 08/03/16 20:31 08/04/16 03:38 White Blood Count 16.9 x10^3/uL (4.0-11.0) 14.4 x10^3/uL (4.0-11.0) Red Blood Count 2.95 x10^6/uL (4.30-5.70) 2.47 x10^6/uL (4.30-5.70) Hemoglobin 8.1 g/dL (13.0-17.5) 6.9 g/dL (13.0-17.5) Hematocrit 25.2 % (39.0-53.0) 21.7 % (39.0-53.0) Mean Corpuscular Volume 85 fL (79-100) 88 fL (79-100) Mean Corpuscular Hemoglobin 27 pg (25-35) 28 pg (25-35) Mean Corpuscular Hemoglobin Concent 32 g/dL (31-37) 32 g/dL (31-37) Red Cell Distribution Width 19.4 % (11.5-14.5) 20.6 % (11.5-14.5) Platelet Count 358 x10^3/uL (140-400) 279 x10^3/uL (140-400) Neutrophils (%) (Auto) 92 % (31-73) 86 % (31-73) Lymphocytes (%) (Auto) 2 % (24-48) 4 % (24-48) Monocytes (%) (Auto) 6 % (0-9) 10 % (0-9) Eosinophils (%) (Auto) 0 % (0-3) 0 % (0-3) Basophils (%) (Auto) 1 % (0-3) 1 % (0-3) Neutrophils # (Auto) 15.5 x10^3uL (1.8-7.7) 12.4 x10^3uL (1.8-7.7) Lymphocytes # (Auto) 0.3 x10^3/uL (1.0-4.8) 0.5 x10^3/uL (1.0-4.8) Monocytes # (Auto) 0.9 x10^3/uL (0.0-1.1) 1.4 x10^3/uL (0.0-1.1) Eosinophils # (Auto) 0.0 x10^3/uL (0.0-0.7) 0.0 x10^3/uL (0.0-0.7) Basophils # (Auto) 0.1 x10^3/uL (0.0-0.2) 0.1 x10^3/uL (0.0-0.2) Segmented Neutrophils % 95 % (35-66) Band Neutrophils % 2 % (0-9) Lymphocytes % 3 % (24-48) Platelet Estimate Adequate (ADEQUATE) Prothrombin Time 14.0 SEC (11.7-14.0) Prothromb Time International Ratio 1.2 (0.8-1.1) Activated Partial Thromboplast Time 35 SEC (24-38) Sodium Level 137 mmol/L (136-145) 140 mmol/L (136-145) Potassium Level 4.0 mmol/L (3.5-5.1) 4.1 mmol/L (3.5-5.1) Chloride Level 101 mmol/L (98-107) 103 mmol/L (98-107) Carbon Dioxide Level 26 mmol/L (21-32) 27 mmol/L (21-32) Anion Gap 10 (6-14) 10 (6-14) Blood Urea Nitrogen 11 mg/dL (8-26) 14 mg/dL (8-26) Creatinine 1.0 mg/dL (0.7-1.3) 0.9 mg/dL (0.7-1.3) Estimated GFR (Cockcroft-Gault) 75.7 85.5 BUN/Creatinine Ratio 11 (6-20) Glucose Level 196 mg/dL (70-99) 76 mg/dL (70-99) Calcium Level 8.7 mg/dL (8.5-10.1) 8.3 mg/dL (8.5-10.1) Total Bilirubin 0.4 mg/dL (0.2-1.0) Aspartate Amino Transf (AST/SGOT) 19 U/L (15-37) Alanine Aminotransferase (ALT/SGPT) 12 U/L (16-63) Alkaline Phosphatase 82 U/L (46-116) Troponin I Quantitative < 0.017 ng/mL (0.000-0.055) < 0.017 ng/mL (0.000-0.055) < 0.017 ng/mL (0.000-0.055) AQ-Lgl-G-Type Natriuretic Peptide 1345 pg/mL (0-124) Total Protein 7.3 g/dL (6.4-8.2) Albumin 2.1 g/dL (3.4-5.0) Albumin/Globulin Ratio 0.4 (1.0-1.7) Glucose (Fingerstick) 112 mg/dL (70-99) Test 08/04/16 07:28 Glucose (Fingerstick) 92 mg/dL (70-99) Medications Current Medications Albuterol/ Ipratropium (Duoneb) 3 ml 1X ONCE NEB Last administered on 12:57; Start 08/03/16 at 12:00; Stop 08/03/16 at 12:01; Status DC Aspirin (Edy Aspirin) 325 mg 1X ONCE PO Last administered on 08/03/16 12:10 ; Start 08/03/16 at 12:00; Stop 08/03/16 at 12:01; Status DC Morphine Sulfate 4 mg PRN Q15MIN PRN IV/SQ PAIN GREATER THAN 3/10 Last administered on 08/03/16 12:11; Start 08/03/16 at 12:00; Stop 08/03/16 at 13:53 ; Status DC Vancomycin HCl (Vanco Per Pharmacy) 1 each PRN DAILY PRN MC SEE COMMENTS Last administered on 08/03/16 16:04; Start 08/03/16 at 13:00 Levofloxacin/ Dextrose (Levaquin Per Pharmacy) 1 each PRN DAILY PRN MC SEE COMMENTS; Start 08/03/16 at 13:00 Aztreonam 2 gm/ Sodium Chloride 100 ml @ 200 mls/hr 1X ONCE IV Last administered on 6/17/17at 14:45; Start 08/03/16 at 13:00; Stop 08/03/16 at 13:29 ; Status DC Vancomycin HCl 2 gm/Sodium Chloride 500 ml @ 250 mls/hr 1X ONCE IV Last administered on 08/03/16 15:28; Start 08/03/16 at 13:00; Stop 08/03/16 at 14:59 ; Status DC Levofloxacin/ Dextrose 150 ml @ 100 mls/hr Q24H IV Last administered on 13:13; Start 08/03/16 at 13:00 Ondansetron HCl (Zofran) 4 mg PRN Q8HRS PRN IV NAUSEA/VOMITING; Start 08/03/16 at 14:00; Stop 08/04/16 at 13:59 Morphine Sulfate 2 mg PRN Q2HR PRN IV PAIN; Start 08/03/16 at 14:00; Stop 08/04 at 13:59 Acetaminophen (Tylenol) 650 mg PRN Q4HRS PRN PO FEVER Last administered on 08/04 09:40; Start 08/03/16 at 14:00; Stop 08/04/16 at 13:59 Albuterol/ Ipratropium (Duoneb) 3 ml RTQID NEB Last administered on 08/04/16 06:08; Start 08/03/16 at 16:00; Stop 08/04/16 at 15:59 Vancomycin HCl 1.5 gm/Sodium Chloride 500 ml @ 250 mls/hr Q12H IV Last administered on 08/04/16 02:51; Start 08/04/16 at 03:00 Vancomycin HCl 1 each 1X ONCE MC ; Start 08/05/16 at 02:30; Stop 08/05/16 at 02 :31 Insulin Aspart (NovoLOG) 0-9 UNITS TIDWMEALS SQ ; Start 08/04/16 at 08:00 Dextrose (Dextrose 50%-Water Syringe) 12.5 gm PRN Q15MIN PRN IV SEE COMMENTS; Start 08/03/16 at 19:15 Aspirin (Ecotrin) 81 mg DAILY PO Last administered on 08/04/16 09:07; Start at 09:00 Atorvastatin Calcium (Lipitor) 40 mg HS PO Last administered on 08/03/16 20:39 ; Start 08/03/16 at 21:00 Celecoxib (CeleBREX) 200 mg DAILY PO Last administered on 08/04/16 09:06; Start 08/04/16 at 09:00 Losartan Potassium (Cozaar) 50 mg DAILY PO Last administered on 08/04/16 09:07 ; Start 08/04/16 at 09:00 Magnesium Oxide (Magnesium Oxide) 400 mg TID PO Last administered on 08/04/16 09:06; Start 08/03/16 at 21:00 Acetaminophen (Tylenol) 650 mg 1X PRN PRN PO PRN prior to blood transfusion; Start 08/04/16 at 06:00; Stop 08/05/16 at 05:59 Pantoprazole Sodium (Protonix) 40 mg DAILYAC PO ; Start 08/05/16 at 07:30; Status UNV Pantoprazole Sodium (Protonix) 40 mg 1X ONCE PO ; Start 08/04/16 at 10:15; Stop 08/04/16 at 10:16; Status UNV Methylprednisolone Sodium Succinate (SOLU-Medrol 40MG VIAL) 40 mg Q8HRS IV ; Start 08/04/16 at 10:15; Status UNV Active Scripts Active Reported Vitamin D3 (Cholecalciferol (Vitamin D3)) 5,000 Unit Tablet 1 Tab PO HS Magnesium (Magnesium Oxide) 400 Mg Capsule 1 Cap PO TID Calcium 500 + Vit D 200 Caplet (Calcium Carbonate/Vitamin D3) 1 Each Tablet 2 Ea PO BID Losartan Potassium 50 Mg Tablet 50 Mg PO DAILY Aspirin Ec (Aspirin) 81 Mg Tablet.dr 1 Tab PO DAILY Lipitor (Atorvastatin Calcium) 40 Mg Tablet 40 Mg PO HS Celebrex (Celecoxib) 200 Mg Capsule 200 Mg PO DAILY Vitals/I & O Vital Sign - Last 24 Hours 08/03/16 08/03/16 08/03/16 08/03/16 11:38 11:48 12:11 12:14 Temp 98.4 98.4 Pulse 99 99 89 Resp 24 22 24 24 B/P (MAP) 142/86 (104) 142/86 (104) 127/69 (88) Pulse Ox 93 93 92 92 O2 Delivery Room Air Room Air Room Air Room Air 08/03/16 08/03/16 08/03/16 08/03/16 12:38 12:59 14:18 15:00 Temp 98.6 97.9 98.6 97.9 Pulse 83 73 87 Resp 18 B/P (MAP) 119/74 (89) 154/89 (110) 116/87 (97) Pulse Ox 92 92 91 97 O2 Delivery Room Air Room Air Room Air Room Air 08/03/16 08/03/16 08/03/16 08/03/16 15:00 19:00 19:57 20:00 Temp 98.1 98.1 Pulse 84 Resp 18 B/P (MAP) 135/80 (98) Pulse Ox 92 92 O2 Delivery Room Air Room Air Room Air Room Air 08/03/16 08/04/16 08/04/16 08/04/16 23:00 03:00 06:09 07:00 Temp 99.3 99.1 99.0 99.3 99.1 99.0 Pulse 83 87 86 Resp 18 B/P (MAP) 145/84 (104) 164/90 (114) 153/93 (113) Pulse Ox 95 91 94 94 O2 Delivery Room Air Room Air Nasal Cannula Room Air O2 Flow Rate 2.0 08/04/16 08/04/16 08/04/16 09:07 09:52 10:08 Temp 97.7 97.7 97.7 97.7 Pulse 86 88 82 Resp 18 B/P (MAP) 153/93 149/82 149/87 Intake and Output 08/03/16 08/03/16 08/04/16 15:00 23:00 07:00 Intake Total 800 ml 240 ml Output Total 3 ml 750 ml Balance 797 ml -510 ml LESLYE VARGAS MD Aug 04, 2016 10:22
--- NOTE | 2016-08-04 10:45 | PDOC ---
Provider Note Provider Note Onc consult dictated [id number] SCLC s/p chemoradiation 07/05/16, good response (not completed), planning to start PCI tomorrow. Consulted Dr. Torres. Dr. Polanco will return tomorrow, planning for PET in 11/03. CHELLY PALAFOX DO Aug 04, 2016 10:45
[2016-08-04] MEDS: INSULIN ASPART 300 UNITS/3 ML INSULN.PEN SQ SCH ×3 (11:30→21:56)
--- NOTE | 2016-08-04 11:41 | CONS ---
DATE OF CONSULTATION: 08/04/2016 I was asked to see this 60-year-old gentleman for acute respiratory failure, pneumonia, acute exacerbation of COPD. HISTORY OF PRESENT ILLNESS: He was diagnosed with lung cancer and finished chemo and radiation last month. He has not felt good for the past week. He has had increased shortness of breath, cough, fever, chills and yellow sputum production. He has had chest tightness. He denies gastroesophageal reflux symptoms. He quits smoking 20 years ago. He has history of [id number] smoking. PAST MEDICAL HISTORY: Lung cancer, hypertension, obstructive sleep apnea-hypopnea syndrome and allergic rhinitis. ALLERGIES: PENICILLIN AND SOY. MEDICATIONS: Currently, he is on vancomycin, Levaquin, Cozaar, aspirin, insulin, magnesium, Lipitor and DuoNeb. SOCIAL HISTORY: History of [id number] smoking, stopped smoking 20 years ago. FAMILY HISTORY: Hypertension. REVIEW OF SYSTEMS: As mentioned as above, other systems otherwise negative. PHYSICAL EXAMINATION: GENERAL: This is an obese gentleman. VITAL SIGNS: His O2 saturation on 2 liters of oxygen is 94%, respiratory rate 18, heart rate 88, blood pressure 149/82, temperature 97.7. HEENT: Normocephalic, atraumatic. Pupils are equal, round and reactive to light. There is shallow oropharynx. Nose is clear. NECK: There is no JVD, lymphadenopathy or thyromegaly. CARDIOVASCULAR: Regular rate and rhythm. PMI is nondisplaced. CHEST: Inspection is normal. LUNGS: There is end expiratory wheezing, bibasilar crackles. ABDOMEN: Soft and obese. Bowel sounds are good. There is no mass. EXTREMITIES: There is edema. LYMPHATICS: There is no lymphadenopathy. SKIN: Chronic changes. NEUROLOGIC: Alert and oriented. LABORATORY DATA: I reviewed the following lab data: Chest x-ray showed right upper lobe mass with the infiltrate and atelectasis. WBC 14.4, hemoglobin 6.9, platelets 279. Sodium 140, potassium 4.1, chloride 103, CO2 of 27, glucose 76. BUN 14, creatinine 0.9. Troponin less than 0.01, BMP 1345. IMPRESSION: 1. Acute respiratory failure, multifactorial in etiology including acute exacerbation of chronic obstructive pulmonary disease, pneumonia versus others. 2. Abnormal chest x-ray. 3. Pneumonia,? post-obstructive. 4. Acute exacerbation of chronic obstructive pulmonary disease. 5. Lung cancer, immunocompromise. 6. Obstructive sleep apnea-hypopnea syndrome. 7. Hypertension. 8. Anemia. PLAN AND RECOMMENDATIONS: 1. Titrate FiO2 to keep O2 saturation 92%. 2. Bronchodilator 3. Add Solu-Medrol 40 mg IV every 8 hours. 4. Continue antibiotics. 5. Follow up blood cultures. 6. SCDs. 7. He is being transfused today. Workup for anemia, we will defer that primary doctor. 8. Start Protonix for stress ulcer prophylaxis. 9. Monitor respiratory status very closely. 10. The findings and recommendations were discussed with the patient and RN. I have answered all of the patient's questions. He understood and agreed to proceed with the plan. 11. Start CPAP. He does not know his CPAP pressure. i will empirically start him on CPAP of 10 cm water pressure until we obtain his sleep study results. Thank you very much for allowing me to participate in care of this very nice gentleman. ROMAN MARTIN M.D. : Emilee JOB#: [id number] / [id number] DESIREE
[2016-08-04] MEDS: VANCOMYCIN PER PHARMACY MC PRN ×2 (14:28→14:30)
--- NOTE | 2016-08-04 19:37 | CONS ---
DATE OF CONSULTATION: 08/04/2016 REFERRING PROVIDER: Dr. Steinberg. REASON FOR CONSULTATION: Small cell lung cancer. HISTORY OF PRESENT ILLNESS: The patient is a 60-year-old male, who completed concurrent chemoradiation for his limited stage 3B small cell lung cancer with cisplatin/etoposide on 07/05/2016. He had a CT scan done earlier this month, which showed a good response to therapy, everything has shrunk down significantly, but there are still some masses present. He is planning to start prophylactic cranial radiation tomorrow. He has been having some progressive fatigue, fevers, cough, shortness of breath and occasional chest discomfort over the last week. Repeat chest x-ray here shows probable pneumonia in the right upper lung. He has been started on antibiotics. His hemoglobin did drop down to 6.9 and he is receiving a unit of blood this morning. PAST MEDICAL HISTORY: Small cell lung cancer, arthritis, hypertension, hyperlipidemia, heart disease and pancreatitis. PAST SURGICAL HISTORY: Right knee replacement, PCI gastric sleeve. FAMILY HISTORY: Maternal uncle had lung cancer. Maternal grandmother had colon cancer. Grandfather had some form of cancer. SOCIAL HISTORY: Previously smoked 1 pack a day for 40 years, but quit in 1993. . No alcohol or drug use. ALLERGIES: PENICILLIN, SOY. CURRENT MEDICATIONS: Protonix, vancomycin, Solu-Medrol, losartan, Celebrex, aspirin, Tylenol, magnesium oxide, atorvastatin, morphine, Zofran and Levaquin. REVIEW OF SYSTEMS: Ten point review of systems completed and unremarkable with the exception of that mentioned in the HPI. PHYSICAL EXAMINATION: VITAL SIGNS: Temperature 99.0, pulse 86, respiratory rate 18, blood pressure 153/93, 94% O2 on 2 liters. GENERAL: He is alert and oriented. He does appear fatigued, in no distress at this time. HEENT: Extraocular muscles are intact. Sclerae are without icterus. Mucous membranes are moist. CARDIOVASCULAR: Heart is regular in rhythm and rate. LUNGS: Rhonchi bilaterally. No respiratory distress. ABDOMEN: Soft, nontender. EXTREMITIES: No edema. NEUROLOGIC: No focal deficits. IMAGING AND LABORATORY DATA: WBC 14.4 with increased absolute neutrophil count, hemoglobin 6.9, platelets 279. Chest x-ray and previous CT scan, Oncology notes reviewed as above. ASSESSMENT AND PLAN: The patient is a 60-year-old male with the following medical problems: 1. [id number] stage 3B small cell lung cancer status post chemoradiation completed on 07/05/2016 and planning to start prophylactic cranial radiation tomorrow. He had a good response to therapy. There are still some masses present, it is unknown if this is necrotic tissue or still active disease. Dr. Polanco had planned to do a followup PET scan in 3 months in October. I consulted Dr. Torres as he is due to start his prophylactic cranial irradiation tomorrow. 2. Anemia, likely worsened from recent chemotherapy in this current illness. I ordered 1 unit of blood, which is being transfused now. 3. Healthcare associated pneumonia. On antibiotics per Dr. Steinberg. Thank you for alerting us of his admission. Dr. Polanco will resume his care tomorrow. Discussed with Dr. Steinberg. DO JC BOLAND MRA/cecile JOB#: [id number] / [id number] MTDD
[2016-08-04] MEDS: ATORVASTATIN CALCIUM 40 MG TABLET. PO SCH (21:51)
[2016-08-05 03:00] VITALS: BP 178/99
[2016-08-05] MEDS: VANCOMYCIN 1.5 GM in IV NORMAL SALINE 500ML BAG 500 ML IV SCH (03:56)
[2016-08-05] MEDS: VANCOMYCIN PER PHARMACY MC PRN (04:51)
[2016-08-05] MEDS: methylPREDNISolone SOD SUCC PF 40 MG/ML VIAL. IV SCH ×2 (05:55→21:47)
[2016-08-05] MEDS: IPRATRPIUM/ALBUTEROL 0.5/2.5MG 3 ML NEBU. NEB SCH ×4 (07:26→19:48)
[2016-08-05] MEDS: INSULIN ASPART 300 UNITS/3 ML INSULN.PEN SQ SCH ×4 (07:30→21:00)
[2016-08-05 07:45] VITALS: BP 165/96
[2016-08-05] MEDS: PANTOPRAZOLE 40 MG TABLET.DR. PO SCH (07:58)
[2016-08-05] MEDS: CELECOXIB 200 MG CAPSULE. PO SCH (08:04)
[2016-08-05] MEDS: MAGNESIUM OXIDE 400 MG TABLET PO SCH ×3 (08:04→21:46)
[2016-08-05] MEDS: ASPIRIN ENTERIC COATED 81 MG TABLET.DR. PO SCH (08:04)
[2016-08-05] MEDS: LOSARTAN POTASSIUM 50 MG TABLET. PO SCH (08:05)
[2016-08-05 10:30] VITALS: BP 155/97
[2016-08-05] MEDS ORDERED: ALBUTEROL SULFATE 2.5 MG/3 ML NEBU. NEB PRN (11:15)
--- NOTE | 2016-08-05 13:48 | PDOC ---
PROGRESS NOTES Subjective Subjective c/c - f/u of T4N3M0 stage 3B small cell lung cancer ROS - has fatigue, no fever Objective Objective Vital Signs Date Time Temp Pulse Resp B/P (MAP) Pulse Ox O2 Delivery O2 Flow Rate FiO2 08/05/16 11:19 94 Room Air 08/05/16 10:30 96.6 89 18 155/97 (116) 2.0 96.6 Intake and Output 08/05/16 07:00 Intake Total 2870 ml Output Total 700 ml Balance 2170 ml Intake Oral 1310 ml IV Total 650 ml Blood Product 330 ml Blood Product IV Normal Saline Flush 580 ml Output Urine Total 700 ml # Voids 6 Physical Exam Heart: Normal S1, Normal S2 General: Alert, Oriented X3 Lungs: Clear to auscultation Neuro: Normal speech Psych/Mental Status: Mental status NL Assessment Assessment Problems Medical Problems: (1) Anemia Status: Acute (2) Chest pain Status: Acute (3) Elevated brain natriuretic peptide (BNP) level Status: Acute (4) Leukocytosis Status: Acute (5) Lung cancer Status: Acute ASSESSMENT AND PLAN: The patient is a 60-year-old male with the following medical problems: 1. T4N3M0 stage 3B small cell lung cancer status post chemoradiation completed on 07/05/2016 and planning to start prophylactic cranial radiation tomorrow. He had a good response to therapy. Plan to do a followup PET scan in 3 months in October. I consulted Dr. Torres as he is due to start his prophylactic cranial irradiation 2. Anemia, likely worsened from recent chemotherapy in this current illness. s/p 1 unit of blood transfused 08/04/16. 3. Healthcare associated pneumonia. On antibiotics per Dr. Steinberg. Comment Review of Relevant I have reviewed the following items tra (where applicable) has been applied. Labs Laboratory Tests Test 08/03/16 19:25 08/03/16 20:31 08/04/16 03:38 08/04/16 07:28 Troponin I Quantitative < 0.017 ng/mL (0.000-0.055) < 0.017 ng/mL (0.000-0.055) Glucose (Fingerstick) 112 mg/dL (70-99) 92 mg/dL (70-99) White Blood Count 14.4 x10^3/uL (4.0-11.0) Red Blood Count 2.47 x10^6/uL (4.30-5.70) Hemoglobin 6.9 g/dL (13.0-17.5) Hematocrit 21.7 % (39.0-53.0) Mean Corpuscular Volume 88 fL (79-100) Mean Corpuscular Hemoglobin 28 pg (25-35) Mean Corpuscular Hemoglobin Concent 32 g/dL (31-37) Red Cell Distribution Width 20.6 % (11.5-14.5) Platelet Count 279 x10^3/uL (140-400) Neutrophils (%) (Auto) 86 % (31-73) Lymphocytes (%) (Auto) 4 % (24-48) Monocytes (%) (Auto) 10 % (0-9) Eosinophils (%) (Auto) 0 % (0-3) Basophils (%) (Auto) 1 % (0-3) Neutrophils # (Auto) 12.4 x10^3uL (1.8-7.7) Lymphocytes # (Auto) 0.5 x10^3/uL (1.0-4.8) Monocytes # (Auto) 1.4 x10^3/uL (0.0-1.1) Eosinophils # (Auto) 0.0 x10^3/uL (0.0-0.7) Basophils # (Auto) 0.1 x10^3/uL (0.0-0.2) Sodium Level 140 mmol/L (136-145) Potassium Level 4.1 mmol/L (3.5-5.1) Chloride Level 103 mmol/L (98-107) Carbon Dioxide Level 27 mmol/L (21-32) Anion Gap 10 (6-14) Blood Urea Nitrogen 14 mg/dL (8-26) Creatinine 0.9 mg/dL (0.7-1.3) Estimated GFR (Cockcroft-Gault) 85.5 Glucose Level 76 mg/dL (70-99) Calcium Level 8.3 mg/dL (8.5-10.1) Test 08/04/16 11:13 08/04/16 16:41 08/04/16 21:01 08/05/16 02:45 Glucose (Fingerstick) 137 mg/dL (70-99) 114 mg/dL (70-99) 255 mg/dL (70-99) Vancomycin Level Trough 11.9 mcg/mL (10.0-20.0) Vancomycin Last Dose Date 6170223 Vancomycin Last Dose Time 1500 Test 08/05/16 07:59 08/05/16 11:45 Glucose (Fingerstick) 147 mg/dL (70-99) 209 mg/dL (70-99) Laboratory Tests Test 08/04/16 16:41 08/04/16 21:01 08/05/16 02:45 08/05/16 07:59 Glucose (Fingerstick) 114 mg/dL (70-99) 255 mg/dL (70-99) 147 mg/dL (70-99) Vancomycin Level Trough 11.9 mcg/mL (10.0-20.0) Vancomycin Last Dose Date 6170223 Vancomycin Last Dose Time 1500 Test 08/05/16 11:45 Glucose (Fingerstick) 209 mg/dL (70-99) Medications Current Medications Albuterol/ Ipratropium (Duoneb) 3 ml 1X ONCE NEB Last administered on 12:57; Start 08/03/16 at 12:00; Stop 08/03/16 at 12:01; Status DC Aspirin (Edy Aspirin) 325 mg 1X ONCE PO Last administered on 08/03/16 12:10 ; Start 08/03/16 at 12:00; Stop 08/03/16 at 12:01; Status DC Morphine Sulfate 4 mg PRN Q15MIN PRN IV/SQ PAIN GREATER THAN 3/10 Last administered on 08/03/16 12:11; Start 08/03/16 at 12:00; Stop 08/03/16 at 13:53 ; Status DC Vancomycin HCl (Vanco Per Pharmacy) 1 each PRN DAILY PRN MC SEE COMMENTS Last administered on 08/05/16 04:51; Start 08/03/16 at 13:00 Levofloxacin/ Dextrose (Levaquin Per Pharmacy) 1 each PRN DAILY PRN MC SEE COMMENTS; Start 08/03/16 at 13:00; Stop 08/05/16 at 13:26; Status DC Aztreonam 2 gm/ Sodium Chloride 100 ml @ 200 mls/hr 1X ONCE IV Last administered on 08/03/16 14:45; Start 08/03/16 at 13:00; Stop 08/03/16 at 13:29 ; Status DC Vancomycin HCl 2 gm/Sodium Chloride 500 ml @ 250 mls/hr 1X ONCE IV Last administered on 08/03/16 15:28; Start 08/03/16 at 13:00; Stop 08/03/16 at 14:59 ; Status DC Levofloxacin/ Dextrose 150 ml @ 100 mls/hr Q24H IV Last administered on 12:50; Start 08/03/16 at 13:00 Ondansetron HCl (Zofran) 4 mg PRN Q8HRS PRN IV NAUSEA/VOMITING; Start 08/03/16 at 14:00; Stop 08/04/16 at 13:59; Status DC Morphine Sulfate 2 mg PRN Q2HR PRN IV PAIN; Start 08/03/16 at 14:00; Stop 08/04 at 13:59; Status DC Acetaminophen (Tylenol) 650 mg PRN Q4HRS PRN PO FEVER Last administered on 08/04 09:40; Start 08/03/16 at 14:00; Stop 08/04/16 at 13:59; Status DC Albuterol/ Ipratropium (Duoneb) 3 ml RTQID NEB Last administered on 08/04/16 12:00; Start 08/03/16 at 16:00; Stop 08/04/16 at 15:59; Status DC Vancomycin HCl 1.5 gm/Sodium Chloride 500 ml @ 250 mls/hr Q12H IV Last administered on 08/05/16 03:56; Start 08/04/16 at 03:00; Stop 08/05/16 at 06:00 ; Status DC Vancomycin HCl 1 each 1X ONCE MC Last administered on 08/05/16 02:30; Start 08/05/16 at 02:30; Stop 08/05/16 at 02:31; Status DC Insulin Aspart (NovoLOG) 0-9 UNITS TIDWMEALS SQ ; Start 08/04/16 at 08:00; Stop 08/04/16 at 10:23; Status DC Dextrose (Dextrose 50%-Water Syringe) 12.5 gm PRN Q15MIN PRN IV SEE COMMENTS; Start 08/03/16 at 19:15 Aspirin (Ecotrin) 81 mg DAILY PO Last administered on 08/05/16 08:04; Start at 09:00 Atorvastatin Calcium (Lipitor) 40 mg HS PO Last administered on 08/04/16 21:51 ; Start 08/03/16 at 21:00 Celecoxib (CeleBREX) 200 mg DAILY PO Last administered on 08/05/16 08:04; Start 08/04/16 at 09:00 Losartan Potassium (Cozaar) 50 mg DAILY PO Last administered on 08/05/16 08:05 ; Start 08/04/16 at 09:00 Magnesium Oxide (Magnesium Oxide) 400 mg TID PO Last administered on 08/05/16 08:04; Start 08/03/16 at 21:00 Acetaminophen (Tylenol) 650 mg 1X PRN PRN PO PRN prior to blood transfusion; Start 08/04/16 at 06:00; Stop 08/05/16 at 05:59; Status DC Pantoprazole Sodium (Protonix) 40 mg DAILYAC PO Last administered on 08/05/16 07:58; Start 08/05/16 at 07:30 Pantoprazole Sodium (Protonix) 40 mg 1X ONCE PO Last administered on 12:05; Start 08/04/16 at 10:15; Stop 08/04/16 at 10:31; Status DC Methylprednisolone Sodium Succinate (SOLU-Medrol 40MG VIAL) 40 mg Q8HRS IV Last administered on 08/05/16 05:55; Start 08/04/16 at 10:15; Stop 08/05/16 at 11:04; Status DC Insulin Aspart (NovoLOG) 0-9 UNITS QIDACHS SQ Last administered on 08/05/16 13 :02; Start 08/04/16 at 11:30 Albuterol/ Ipratropium (Duoneb) 3 ml RTQID NEB Last administered on 08/05/16 11:18; Start 08/04/16 at 20:00 Vancomycin HCl 1.75 gm/Sodium Chloride 500 ml @ 250 mls/hr Q12H IV ; Start at 16:00 Methylprednisolone Sodium Succinate (SOLU-Medrol 40MG VIAL) 40 mg BID IV ; Start 08/05/16 at 21:00 Albuterol Sulfate (Ventolin Neb Soln) 2.5 mg PRN Q4HRS PRN NEB SHORTNESS OF BREATH; Start 08/05/16 at 11:15 Guaifenesin/ Codeine Phosphate (Robitussin Ac) 5 ml PRN Q6HRS PRN PO COUGH; Start 08/05/16 at 11:15 Active Scripts Active Reported Vitamin D3 (Cholecalciferol (Vitamin D3)) 5,000 Unit Tablet 1 Tab PO HS Magnesium (Magnesium Oxide) 400 Mg Capsule 1 Cap PO TID Calcium 500 + Vit D 200 Caplet (Calcium Carbonate/Vitamin D3) 1 Each Tablet 2 Ea PO BID Losartan Potassium 50 Mg Tablet 50 Mg PO DAILY Aspirin Ec (Aspirin) 81 Mg Tablet.dr 1 Tab PO DAILY Lipitor (Atorvastatin Calcium) 40 Mg Tablet 40 Mg PO HS Celebrex (Celecoxib) 200 Mg Capsule 200 Mg PO DAILY Vitals/I & O Vital Sign - Last 24 Hours 08/04/16 08/04/16 08/04/16 08/04/16 15:00 16:27 19:00 19:25 Temp 97.7 98.1 97.7 98.1 Pulse 72 93 Resp 18 18 B/P (MAP) 151/92 (111) 144/86 (105) Pulse Ox 98 91 O2 Delivery Nasal Cannula Room Air Nasal Cannula Room Air O2 Flow Rate 2.0 2.0 08/04/16 08/04/16 08/05/16 08/05/16 20:00 23:00 03:00 07:26 Temp 97.5 96.3 97.5 96.3 Pulse 87 78 Resp 18 18 B/P (MAP) 153/87 (109) 178/99 (125) Pulse Ox 95 98 94 O2 Delivery Nasal Cannula Room Air Room Air Room Air O2 Flow Rate 2.0 08/05/16 08/05/16 08/05/16 08/05/16 07:45 07:45 08:00 08:05 Temp 97.5 97.5 Pulse 94 94 Resp 18 B/P (MAP) 165/96 (119) 165/96 Pulse Ox 88 96 O2 Delivery Room Air Nasal Cannula Nasal Cannula O2 Flow Rate 2.0 2.0 08/05/16 08/05/16 10:30 11:19 Temp 96.6 96.6 Pulse 89 Resp 18 B/P (MAP) 155/97 (116) Pulse Ox 94 94 O2 Delivery Nasal Cannula Room Air O2 Flow Rate 2.0 Intake and Output 08/04/16 08/04/16 08/05/16 15:00 23:00 07:00 Intake Total 1720 ml 1150 ml Output Total 700 ml Balance 1020 ml 1150 ml JEWELS STUART MD Aug 05, 2016 13:48
--- NOTE | 2016-08-05 14:07 | PDOC ---
Provider Note Provider Note 60 yo man with bulky st IIIB small cell carcinoma s/p chemo and chest radiation. Restaging PET/CT showed excellent near complete response with minimal right hilar and mediastinal adenopathy with SUV decreasing from 15 to 5. Now admitted 08/03/2016 with fatigue nausea, SOB and intermittent chest pain. CXR atelectasis and consolidation RUL c/w pneumonia. hb 8.1 after IV 6.9 now transfused .wbc 16.9 now 14.4 plat 358K now 279K Treated with antibiotics. Now feeling a lot better overall. Impression: Bulky st IIIB small cell lung carcinoma with excellent response to chemo and chest RT. Plan in pursuing PCI now over 10 treatments. Pneumonia better overall. IMAN MARIN MD Aug 05, 2016 14:07
--- NOTE | 2016-08-05 14:29 | PDOC ---
PROGRESS NOTES Chief Complaint Chief Complaint Pneumonia, post obstructive possible per CXR, prior scar also sepsis, leukocytosis and tachycardia, improved - broad abx recent lung cancer, s/p chemo and RT now, t4n0m0, IIIB anemia of chronic disease, got 1u PRBC moderate malnutrition, prior gastric sleeve. DM2, acute resp failure with hypoxia , on NC 2 L now plan still cough, need NC 2L PCI with RT cont iv levaquin and zosyn, decrease solumedrol duoneb add cough meds hope dc in 1-2ds labs tmr History of Present Illness History of Present Illness feels better, less cough will liberalize diet, regular due to low albumin, pt preference, cont IV abx anemia worse today, fluid and acute illness, will transfuse 1 PRBC, discussed at length with pt. Vitals Vitals Vital Signs Date Time Temp Pulse Resp B/P (MAP) Pulse Ox O2 Delivery O2 Flow Rate FiO2 08/05/16 11:19 94 Room Air 08/05/16 10:30 96.6 89 18 155/97 (116) 2.0 96.6 Physical Exam General: Alert, Oriented X3 Heart: Normal S1, Normal S2 Lungs: Clear Abdomen: Normal bowel sounds, Soft Extremities: No cyanosis, No edema, Normal pulses Skin: No rashes Labs LABS Laboratory Tests Test 08/04/16 16:41 08/04/16 21:01 08/05/16 02:45 08/05/16 07:59 Glucose (Fingerstick) 114 mg/dL (70-99) 255 mg/dL (70-99) 147 mg/dL (70-99) Vancomycin Level Trough 11.9 mcg/mL (10.0-20.0) Vancomycin Last Dose Date 6170223 Vancomycin Last Dose Time 1500 Test 08/05/16 11:45 Glucose (Fingerstick) 209 mg/dL (70-99) Review of Systems Review of Systems no fever, chills, sob or chest pain Assessment and Plan Assessmemt and Plan Problems Medical Problems: (1) Anemia Status: Acute (2) Chest pain Status: Acute (3) Elevated brain natriuretic peptide (BNP) level Status: Acute (4) Leukocytosis Status: Acute (5) Lung cancer Status: Acute Problems: Comment Review of Relevant I have reviewed the following items tra (where applicable) has been applied. Labs Laboratory Tests Test 08/03/16 19:25 08/03/16 20:31 08/04/16 03:38 08/04/16 07:28 Troponin I Quantitative < 0.017 ng/mL (0.000-0.055) < 0.017 ng/mL (0.000-0.055) Glucose (Fingerstick) 112 mg/dL (70-99) 92 mg/dL (70-99) White Blood Count 14.4 x10^3/uL (4.0-11.0) Red Blood Count 2.47 x10^6/uL (4.30-5.70) Hemoglobin 6.9 g/dL (13.0-17.5) Hematocrit 21.7 % (39.0-53.0) Mean Corpuscular Volume 88 fL (79-100) Mean Corpuscular Hemoglobin 28 pg (25-35) Mean Corpuscular Hemoglobin Concent 32 g/dL (31-37) Red Cell Distribution Width 20.6 % (11.5-14.5) Platelet Count 279 x10^3/uL (140-400) Neutrophils (%) (Auto) 86 % (31-73) Lymphocytes (%) (Auto) 4 % (24-48) Monocytes (%) (Auto) 10 % (0-9) Eosinophils (%) (Auto) 0 % (0-3) Basophils (%) (Auto) 1 % (0-3) Neutrophils # (Auto) 12.4 x10^3uL (1.8-7.7) Lymphocytes # (Auto) 0.5 x10^3/uL (1.0-4.8) Monocytes # (Auto) 1.4 x10^3/uL (0.0-1.1) Eosinophils # (Auto) 0.0 x10^3/uL (0.0-0.7) Basophils # (Auto) 0.1 x10^3/uL (0.0-0.2) Sodium Level 140 mmol/L (136-145) Potassium Level 4.1 mmol/L (3.5-5.1) Chloride Level 103 mmol/L (98-107) Carbon Dioxide Level 27 mmol/L (21-32) Anion Gap 10 (6-14) Blood Urea Nitrogen 14 mg/dL (8-26) Creatinine 0.9 mg/dL (0.7-1.3) Estimated GFR (Cockcroft-Gault) 85.5 Glucose Level 76 mg/dL (70-99) Calcium Level 8.3 mg/dL (8.5-10.1) Test 08/04/16 11:13 08/04/16 16:41 08/04/16 21:01 08/05/16 02:45 Glucose (Fingerstick) 137 mg/dL (70-99) 114 mg/dL (70-99) 255 mg/dL (70-99) Vancomycin Level Trough 11.9 mcg/mL (10.0-20.0) Vancomycin Last Dose Date 6170223 Vancomycin Last Dose Time 1500 Test 08/05/16 07:59 08/05/16 11:45 Glucose (Fingerstick) 147 mg/dL (70-99) 209 mg/dL (70-99) Laboratory Tests Test 08/04/16 16:41 08/04/16 21:01 08/05/16 02:45 08/05/16 07:59 Glucose (Fingerstick) 114 mg/dL (70-99) 255 mg/dL (70-99) 147 mg/dL (70-99) Vancomycin Level Trough 11.9 mcg/mL (10.0-20.0) Vancomycin Last Dose Date 6170223 Vancomycin Last Dose Time 1500 Test 08/05/16 11:45 Glucose (Fingerstick) 209 mg/dL (70-99) Medications Current Medications Albuterol/ Ipratropium (Duoneb) 3 ml 1X ONCE NEB Last administered on 12:57; Start 08/03/16 at 12:00; Stop 08/03/16 at 12:01; Status DC Aspirin (Edy Aspirin) 325 mg 1X ONCE PO Last administered on 08/03/16 12:10 ; Start 08/03/16 at 12:00; Stop 08/03/16 at 12:01; Status DC Morphine Sulfate 4 mg PRN Q15MIN PRN IV/SQ PAIN GREATER THAN 3/10 Last administered on 08/03/16 12:11; Start 08/03/16 at 12:00; Stop 08/03/16 at 13:53 ; Status DC Vancomycin HCl (Vanco Per Pharmacy) 1 each PRN DAILY PRN MC SEE COMMENTS Last administered on 08/05/16 04:51; Start 08/03/16 at 13:00 Levofloxacin/ Dextrose (Levaquin Per Pharmacy) 1 each PRN DAILY PRN MC SEE COMMENTS; Start 08/03/16 at 13:00; Stop 08/05/16 at 13:26; Status DC Aztreonam 2 gm/ Sodium Chloride 100 ml @ 200 mls/hr 1X ONCE IV Last administered on 08/03/16 14:45; Start 08/03/16 at 13:00; Stop 08/03/16 at 13:29 ; Status DC Vancomycin HCl 2 gm/Sodium Chloride 500 ml @ 250 mls/hr 1X ONCE IV Last administered on 08/03/16 15:28; Start 08/03/16 at 13:00; Stop 08/03/16 at 14:59 ; Status DC Levofloxacin/ Dextrose 150 ml @ 100 mls/hr Q24H IV Last administered on 12:50; Start 08/03/16 at 13:00 Ondansetron HCl (Zofran) 4 mg PRN Q8HRS PRN IV NAUSEA/VOMITING; Start 08/03/16 at 14:00; Stop 08/04/16 at 13:59; Status DC Morphine Sulfate 2 mg PRN Q2HR PRN IV PAIN; Start 08/03/16 at 14:00; Stop 08/04 at 13:59; Status DC Acetaminophen (Tylenol) 650 mg PRN Q4HRS PRN PO FEVER Last administered on 08/04 09:40; Start 08/03/16 at 14:00; Stop 08/04/16 at 13:59; Status DC Albuterol/ Ipratropium (Duoneb) 3 ml RTQID NEB Last administered on 08/04/16 12:00; Start 08/03/16 at 16:00; Stop 08/04/16 at 15:59; Status DC Vancomycin HCl 1.5 gm/Sodium Chloride 500 ml @ 250 mls/hr Q12H IV Last administered on 08/05/16 03:56; Start 08/04/16 at 03:00; Stop 08/05/16 at 06:00 ; Status DC Vancomycin HCl 1 each 1X ONCE MC Last administered on 08/05/16 02:30; Start 08/05/16 at 02:30; Stop 08/05/16 at 02:31; Status DC Insulin Aspart (NovoLOG) 0-9 UNITS TIDWMEALS SQ ; Start 08/04/16 at 08:00; Stop 08/04/16 at 10:23; Status DC Dextrose (Dextrose 50%-Water Syringe) 12.5 gm PRN Q15MIN PRN IV SEE COMMENTS; Start 08/03/16 at 19:15 Aspirin (Ecotrin) 81 mg DAILY PO Last administered on 08/05/16 08:04; Start at 09:00 Atorvastatin Calcium (Lipitor) 40 mg HS PO Last administered on 08/04/16 21:51 ; Start 08/03/16 at 21:00 Celecoxib (CeleBREX) 200 mg DAILY PO Last administered on 08/05/16 08:04; Start 08/04/16 at 09:00 Losartan Potassium (Cozaar) 50 mg DAILY PO Last administered on 08/05/16 08:05 ; Start 08/04/16 at 09:00 Magnesium Oxide (Magnesium Oxide) 400 mg TID PO Last administered on 08/05/16 08:04; Start 08/03/16 at 21:00 Acetaminophen (Tylenol) 650 mg 1X PRN PRN PO PRN prior to blood transfusion; Start 08/04/16 at 06:00; Stop 08/05/16 at 05:59; Status DC Pantoprazole Sodium (Protonix) 40 mg DAILYAC PO Last administered on 08/05/16 07:58; Start 08/05/16 at 07:30 Pantoprazole Sodium (Protonix) 40 mg 1X ONCE PO Last administered on 12:05; Start 08/04/16 at 10:15; Stop 08/04/16 at 10:31; Status DC Methylprednisolone Sodium Succinate (SOLU-Medrol 40MG VIAL) 40 mg Q8HRS IV Last administered on 08/05/16 05:55; Start 08/04/16 at 10:15; Stop 08/05/16 at 11:04; Status DC Insulin Aspart (NovoLOG) 0-9 UNITS QIDACHS SQ Last administered on 08/05/16 13 :02; Start 08/04/16 at 11:30 Albuterol/ Ipratropium (Duoneb) 3 ml RTQID NEB Last administered on 6/19/17at 11:18; Start 08/04/16 at 20:00 Vancomycin HCl 1.75 gm/Sodium Chloride 500 ml @ 250 mls/hr Q12H IV ; Start at 16:00 Methylprednisolone Sodium Succinate (SOLU-Medrol 40MG VIAL) 40 mg BID IV ; Start 08/05/16 at 21:00 Albuterol Sulfate (Ventolin Neb Soln) 2.5 mg PRN Q4HRS PRN NEB SHORTNESS OF BREATH; Start 08/05/16 at 11:15 Guaifenesin/ Codeine Phosphate (Robitussin Ac) 5 ml PRN Q6HRS PRN PO COUGH; Start 08/05/16 at 11:15 Active Scripts Active Reported Vitamin D3 (Cholecalciferol (Vitamin D3)) 5,000 Unit Tablet 1 Tab PO HS Magnesium (Magnesium Oxide) 400 Mg Capsule 1 Cap PO TID Calcium 500 + Vit D 200 Caplet (Calcium Carbonate/Vitamin D3) 1 Each Tablet 2 Ea PO BID Losartan Potassium 50 Mg Tablet 50 Mg PO DAILY Aspirin Ec (Aspirin) 81 Mg Tablet.dr 1 Tab PO DAILY Lipitor (Atorvastatin Calcium) 40 Mg Tablet 40 Mg PO HS Celebrex (Celecoxib) 200 Mg Capsule 200 Mg PO DAILY Vitals/I & O Vital Sign - Last 24 Hours 08/04/16 08/04/16 08/04/16 08/04/16 15:00 16:27 19:00 19:25 Temp 97.7 98.1 97.7 98.1 Pulse 72 93 Resp 18 18 B/P (MAP) 151/92 (111) 144/86 (105) Pulse Ox 98 91 O2 Delivery Nasal Cannula Room Air Nasal Cannula Room Air O2 Flow Rate 2.0 2.0 08/04/16 08/04/16 08/05/16 08/05/16 20:00 23:00 03:00 07:26 Temp 97.5 96.3 97.5 96.3 Pulse 87 78 Resp 18 18 B/P (MAP) 153/87 (109) 178/99 (125) Pulse Ox 95 98 94 O2 Delivery Nasal Cannula Room Air Room Air Room Air O2 Flow Rate 2.0 08/05/16 08/05/16 08/05/16 08/05/16 07:45 07:45 08:00 08:05 Temp 97.5 97.5 Pulse 94 94 Resp 18 B/P (MAP) 165/96 (119) 165/96 Pulse Ox 88 96 O2 Delivery Room Air Nasal Cannula Nasal Cannula O2 Flow Rate 2.0 2.0 08/05/16 08/05/16 10:30 11:19 Temp 96.6 96.6 Pulse 89 Resp 18 B/P (MAP) 155/97 (116) Pulse Ox 94 94 O2 Delivery Nasal Cannula Room Air O2 Flow Rate 2.0 Intake and Output 08/04/16 08/04/16 08/05/16 15:00 23:00 07:00 Intake Total 1720 ml 1150 ml Output Total 700 ml Balance 1020 ml 1150 ml QUINCY WELLS MD Aug 05, 2016 14:29
--- NOTE | 2016-08-05 15:11 | PDOC ---
PULMONARY PROGRESS NOTES Subjective Pt feels better with treatment Vitals Vital Signs Date Time Temp Pulse Resp B/P (MAP) Pulse Ox O2 Delivery O2 Flow Rate FiO2 08/05/16 11:19 94 Room Air 08/05/16 10:30 96.6 89 18 155/97 (116) 2.0 96.6 ROS: No Nausea, No Chest Pain, No Abdominal Pain, No Increase Cough Lungs: Clear, Crackles Cardiovascular: S1, S2 Abdomen: Soft Neuro Exam: Alert Extremities: No Edema Skin: Warm Labs Laboratory Tests Test 08/03/16 19:25 08/03/16 20:31 08/04/16 03:38 08/04/16 07:28 Troponin I Quantitative < 0.017 ng/mL (0.000-0.055) < 0.017 ng/mL (0.000-0.055) Glucose (Fingerstick) 112 mg/dL (70-99) 92 mg/dL (70-99) White Blood Count 14.4 x10^3/uL (4.0-11.0) Red Blood Count 2.47 x10^6/uL (4.30-5.70) Hemoglobin 6.9 g/dL (13.0-17.5) Hematocrit 21.7 % (39.0-53.0) Mean Corpuscular Volume 88 fL (79-100) Mean Corpuscular Hemoglobin 28 pg (25-35) Mean Corpuscular Hemoglobin Concent 32 g/dL (31-37) Red Cell Distribution Width 20.6 % (11.5-14.5) Platelet Count 279 x10^3/uL (140-400) Neutrophils (%) (Auto) 86 % (31-73) Lymphocytes (%) (Auto) 4 % (24-48) Monocytes (%) (Auto) 10 % (0-9) Eosinophils (%) (Auto) 0 % (0-3) Basophils (%) (Auto) 1 % (0-3) Neutrophils # (Auto) 12.4 x10^3uL (1.8-7.7) Lymphocytes # (Auto) 0.5 x10^3/uL (1.0-4.8) Monocytes # (Auto) 1.4 x10^3/uL (0.0-1.1) Eosinophils # (Auto) 0.0 x10^3/uL (0.0-0.7) Basophils # (Auto) 0.1 x10^3/uL (0.0-0.2) Sodium Level 140 mmol/L (136-145) Potassium Level 4.1 mmol/L (3.5-5.1) Chloride Level 103 mmol/L (98-107) Carbon Dioxide Level 27 mmol/L (21-32) Anion Gap 10 (6-14) Blood Urea Nitrogen 14 mg/dL (8-26) Creatinine 0.9 mg/dL (0.7-1.3) Estimated GFR (Cockcroft-Gault) 85.5 Glucose Level 76 mg/dL (70-99) Calcium Level 8.3 mg/dL (8.5-10.1) Test 08/04/16 11:13 08/04/16 16:41 08/04/16 21:01 08/05/16 02:45 Glucose (Fingerstick) 137 mg/dL (70-99) 114 mg/dL (70-99) 255 mg/dL (70-99) Vancomycin Level Trough 11.9 mcg/mL (10.0-20.0) Vancomycin Last Dose Date [id number] Vancomycin Last Dose Time 1500 Test 08/05/16 07:59 08/05/16 11:45 Glucose (Fingerstick) 147 mg/dL (70-99) 209 mg/dL (70-99) Laboratory Tests Test 08/04/16 16:41 08/04/16 21:01 08/05/16 02:45 08/05/16 07:59 Glucose (Fingerstick) 114 mg/dL (70-99) 255 mg/dL (70-99) 147 mg/dL (70-99) Vancomycin Level Trough 11.9 mcg/mL (10.0-20.0) Vancomycin Last Dose Date 6170223 Vancomycin Last Dose Time 1500 Test 08/05/16 11:45 Glucose (Fingerstick) 209 mg/dL (70-99) Medications Active Scripts Medications Dose Route/Sig Max Daily Dose Days Date Category Vitamin D3 (Cholecalciferol (Vitamin D3)) 5,000 Unit Tablet 1 Tab PO HS 08/03/16 Reported Magnesium (Magnesium Oxide) 400 Mg Capsule 1 Cap PO TID 08/03/16 Reported Calcium 500 + Vit D 200 Caplet (Calcium Carbonate/Vitamin D3) 1 Each Tablet 2 Ea PO BID 08/03/16 Reported Losartan Potassium 50 Mg Tablet 50 Mg PO DAILY 07/08/16 Reported Aspirin Ec (Aspirin) 81 Mg Tablet. 1 Tab PO DAILY 02/21/16 Reported Lipitor (Atorvastatin Calcium) 40 Mg Tablet 40 Mg PO HS 06/28/15 Reported Celebrex (Celecoxib) 200 Mg Capsule 200 Mg PO DAILY 08/15/13 Reported Impression . 1. Acute respiratory failure, multifactorial in etiology including acute exacerbation of chronic obstructive pulmonary disease, pneumonia 2. Abnormal chest x-ray, compatible wtih pneumonia 3. Pneumonia,? post-obstructive. VS XRT induced lung injury delayed will d/w Dr Torres 4. Acute exacerbation of chronic obstructive pulmonary disease. 5. 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 Obstructive sleep apnea-hypopnea syndrome. 7. Hypertension. 8. Anemia. Plan . 1. Antibx pt feels better 2. Bronchodilator 3. Add Solu-Medrol 40 mg IV every 8 hours. 4. Continue antibiotics. 5. Follow up blood cultures. 6. SCDs. 7. transuse as needed 8. Start Protonix for stress ulcer prophylaxis. 9. Home CPAP SEB HOLDER MD Aug 05, 2016 15:11
[2016-08-05] MEDS: VANCOMYCIN 1.75 GM in IV NORMAL SALINE 500ML BAG 500 ML IV SCH (15:24)
[2016-08-05 15:30] VITALS: BP 156/92
[2016-08-05 19:00] VITALS: BP 154/96
[2016-08-05] MEDS: DOCUSATE SODIUM 100 MG CAPSULE. PO SCH (19:40)
[2016-08-05] MEDS: HYDROcodone/APAP 5/325MG 1 TAB TABLET PO PRN ×2 (19:41→21:59)
[2016-08-05] MEDS: ATORVASTATIN CALCIUM 40 MG TABLET. PO SCH (21:46)
[2016-08-05] MEDS: ZOLPIDEM 5 MG TABLET. PO PRN (21:48)
[2016-08-05] MEDS ORDERED: HYDROcodone/APAP 5/325MG 1 TAB TABLET PO PRN (22:00)
[2016-08-05 23:00] VITALS: BP 171/103
[2016-08-06] MEDS: guaiFENesin/CODEINE 100mg/10mg 5 ML LIQUID PO PRN ×3 (00:59→20:48)
[2016-08-06 03:00] VITALS: BP 169/100
[2016-08-06] MEDS: VANCOMYCIN 1.75 GM in IV NORMAL SALINE 500ML BAG 500 ML IV SCH (04:13)
[2016-08-06 04:35] LABS: BASO % 0 % (0-3); EOS % 0 % (0-3); HEMATOCRIT 25.3 % (39.0-53.0); HEMOGLOBIN 8.2 g/dL (13.0-17.5); LYMPH # 0.3 x10^3/uL (1.0-4.8); LYMPH % 1 % (24-48); MEAN CORPUSCULAR HEMOGLOBIN 27 pg (25-35); MEAN CORPUSCULAR HGB CONC 32 g/dL (31-37); MEAN CORPUSCULAR VOLUME 84 fL (79-100); MONO % 2 % (0-9); NEUT % 97 % (31-73); PLATELET COUNT 333 x10^3/uL (140-400); RED CELL DISTRIBUTION WIDTH 19.1 % (11.5-14.5); WHITE BLOOD COUNT 24.1 x10^3/uL (4.0-11.0)
[2016-08-06 04:50] LABS: CALCIUM 8.4 mg/dL (8.5-10.1); CREATININE 0.9 mg/dL (0.7-1.3); GFR 85.5; POTASSIUM 4.1 mmol/L (3.5-5.1)
[2016-08-06] MEDS: PANTOPRAZOLE 40 MG TABLET.DR. PO SCH (06:07)
[2016-08-06 07:00] VITALS: BP 165/110
[2016-08-06] MEDS: INSULIN ASPART 300 UNITS/3 ML INSULN.PEN SQ SCH ×4 (07:30→21:00)
[2016-08-06] MEDS: DOCUSATE SODIUM 100 MG CAPSULE. PO SCH ×2 (08:01→20:49)
[2016-08-06] MEDS: methylPREDNISolone SOD SUCC PF 40 MG/ML VIAL. IV SCH (08:01)
[2016-08-06] MEDS: MAGNESIUM OXIDE 400 MG TABLET PO SCH ×3 (08:01→20:48)
[2016-08-06] MEDS: CELECOXIB 200 MG CAPSULE. PO SCH (08:02)
[2016-08-06] MEDS: LOSARTAN POTASSIUM 50 MG TABLET. PO SCH (08:02)
[2016-08-06] MEDS: ASPIRIN ENTERIC COATED 81 MG TABLET.DR. PO SCH (08:02)
--- NOTE | 2016-08-06 08:56 | PDOC ---
PULMONARY PROGRESS NOTES Subjective Pt feels better with treatment Vitals Vital Signs Date Time Temp Pulse Resp B/P (MAP) Pulse Ox O2 Delivery O2 Flow Rate FiO2 08/06/16 08:02 103 165/110 08/06/16 08:00 Nasal Cannula 2.0 08/06/16 07:46 98 08/06/16 03:00 97.0 18 97.0 ROS: No Nausea, No Chest Pain, No Abdominal Pain, No Increase Cough Lungs: Clear, Crackles Cardiovascular: S1, S2 Abdomen: Soft Neuro Exam: Alert Extremities: No Edema Skin: Warm Labs Laboratory Tests Test 08/04/16 11:13 08/04/16 16:41 08/04/16 21:01 08/05/16 02:45 Glucose (Fingerstick) 137 mg/dL (70-99) 114 mg/dL (70-99) 255 mg/dL (70-99) Vancomycin Level Trough 11.9 mcg/mL (10.0-20.0) Vancomycin Last Dose Date [id number] Vancomycin Last Dose Time 1500 Test 08/05/16 07:59 08/05/16 11:45 08/05/16 16:31 08/05/16 21:45 Glucose (Fingerstick) 147 mg/dL (70-99) 209 mg/dL (70-99) 162 mg/dL (70-99) 135 mg/dL (70-99) Test 08/06/16 03:15 08/06/16 07:58 White Blood Count 24.1 x10^3/uL (4.0-11.0) Red Blood Count 3.00 x10^6/uL (4.30-5.70) Hemoglobin 8.2 g/dL (13.0-17.5) Hematocrit 25.3 % (39.0-53.0) Mean Corpuscular Volume 84 fL (79-100) Mean Corpuscular Hemoglobin 27 pg (25-35) Mean Corpuscular Hemoglobin Concent 32 g/dL (31-37) Red Cell Distribution Width 19.1 % (11.5-14.5) Platelet Count 333 x10^3/uL (140-400) Neutrophils (%) (Auto) 97 % (31-73) Lymphocytes (%) (Auto) 1 % (24-48) Monocytes (%) (Auto) 2 % (0-9) Eosinophils (%) (Auto) 0 % (0-3) Basophils (%) (Auto) 0 % (0-3) Neutrophils # (Auto) 23.2 x10^3uL (1.8-7.7) Lymphocytes # (Auto) 0.3 x10^3/uL (1.0-4.8) Monocytes # (Auto) 0.5 x10^3/uL (0.0-1.1) Eosinophils # (Auto) 0.0 x10^3/uL (0.0-0.7) Basophils # (Auto) 0.0 x10^3/uL (0.0-0.2) Sodium Level 139 mmol/L (136-145) Potassium Level 4.1 mmol/L (3.5-5.1) Chloride Level 105 mmol/L (98-107) Carbon Dioxide Level 25 mmol/L (21-32) Anion Gap 9 (6-14) Blood Urea Nitrogen 16 mg/dL (8-26) Creatinine 0.9 mg/dL (0.7-1.3) Estimated GFR (Cockcroft-Gault) 85.5 Glucose Level 143 mg/dL (70-99) Calcium Level 8.4 mg/dL (8.5-10.1) Glucose (Fingerstick) 121 mg/dL (70-99) Laboratory Tests Test 08/05/16 11:45 08/05/16 16:31 08/05/16 21:45 08/06/16 03:15 Glucose (Fingerstick) 209 mg/dL (70-99) 162 mg/dL (70-99) 135 mg/dL (70-99) White Blood Count 24.1 x10^3/uL (4.0-11.0) Red Blood Count 3.00 x10^6/uL (4.30-5.70) Hemoglobin 8.2 g/dL (13.0-17.5) Hematocrit 25.3 % (39.0-53.0) Mean Corpuscular Volume 84 fL (79-100) Mean Corpuscular Hemoglobin 27 pg (25-35) Mean Corpuscular Hemoglobin Concent 32 g/dL (31-37) Red Cell Distribution Width 19.1 % (11.5-14.5) Platelet Count 333 x10^3/uL (140-400) Neutrophils (%) (Auto) 97 % (31-73) Lymphocytes (%) (Auto) 1 % (24-48) Monocytes (%) (Auto) 2 % (0-9) Eosinophils (%) (Auto) 0 % (0-3) Basophils (%) (Auto) 0 % (0-3) Neutrophils # (Auto) 23.2 x10^3uL (1.8-7.7) Lymphocytes # (Auto) 0.3 x10^3/uL (1.0-4.8) Monocytes # (Auto) 0.5 x10^3/uL (0.0-1.1) Eosinophils # (Auto) 0.0 x10^3/uL (0.0-0.7) Basophils # (Auto) 0.0 x10^3/uL (0.0-0.2) Sodium Level 139 mmol/L (136-145) Potassium Level 4.1 mmol/L (3.5-5.1) Chloride Level 105 mmol/L (98-107) Carbon Dioxide Level 25 mmol/L (21-32) Anion Gap 9 (6-14) Blood Urea Nitrogen 16 mg/dL (8-26) Creatinine 0.9 mg/dL (0.7-1.3) Estimated GFR (Cockcroft-Gault) 85.5 Glucose Level 143 mg/dL (70-99) Calcium Level 8.4 mg/dL (8.5-10.1) Test 08/06/16 07:58 Glucose (Fingerstick) 121 mg/dL (70-99) Medications Active Scripts Medications Dose Route/Sig Max Daily Dose Days Date Category Vitamin D3 (Cholecalciferol (Vitamin D3)) 5,000 Unit Tablet 1 Tab PO HS 08/03/16 Reported Magnesium (Magnesium Oxide) 400 Mg Capsule 1 Cap PO TID 08/03/16 Reported Calcium 500 + Vit D 200 Caplet (Calcium Carbonate/Vitamin D3) 1 Each Tablet 2 Ea PO BID 08/03/16 Reported Losartan Potassium 50 Mg Tablet 50 Mg PO DAILY 07/08/16 Reported Aspirin Ec (Aspirin) 81 Mg Tablet.dr 1 Tab PO DAILY 02/21/16 Reported Lipitor (Atorvastatin Calcium) 40 Mg Tablet 40 Mg PO HS 06/28/15 Reported Celebrex (Celecoxib) 200 Mg Capsule 200 Mg PO DAILY 08/15/13 Reported Impression . 1. Acute respiratory failure, multifactorial in etiology including acute exacerbation of chronic obstructive pulmonary disease, pneumonia 2. Abnormal chest x-ray, compatible wtih pneumonia 3. Pneumonia,? post-obstructive. VS XRT induced lung injury delayed will d/w Dr Torres 4. Acute exacerbation of chronic obstructive pulmonary disease. 5. 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 Obstructive sleep apnea-hypopnea syndrome. 7. Hypertension. 8. Anemia. Plan . Possible home in AM 1. Antibx pt feels better 2. Bronchodilator 3. Prednisone 40 daily 4. Narrow antibx 5. Follow up blood cultures. 6. SCDs. 7. transuse as needed 8. Start Protonix for stress ulcer prophylaxis. 9. Home CPAP ESB HOLDER MD Aug 06, 2016 08:56
[2016-08-06 11:00] VITALS: BP 164/106
[2016-08-06] MEDS: IPRATRPIUM/ALBUTEROL 0.5/2.5MG 3 ML NEBU. NEB SCH ×3 (11:51→20:05)
[2016-08-06] MEDS: VANCOMYCIN PER PHARMACY MC PRN (12:39)
--- NOTE | 2016-08-06 13:50 | PDOC ---
PROGRESS NOTES Chief Complaint Chief Complaint Cough, SOB ASSESSMENT AND PLAN: 1. RUL infiltrate: poss PNA vs XRT pneumonitis (completed XRT to chest [address] Werner's input. IV steroids. Robitussin AC for cough; suppl O2 2. Sepsis (?): leukocytosis and tachycardia, improved - broad abx 3. SCLC: limited, s/p concurrent chemo/rad completed last month; now receiving prophylactic XRT to brain 4. DM2: well controlled (despite steroids), ISS only. obtain HgbA1c 5. HTN: not well controlled on home cozaar. add norvasc, hydralazine PRN 5. Anemia: chronic disease with malignancy and rx. s/p PRBC x1, monitor 6. Protein malnutrition: moderate; hx gastric sleeve. supplements History of Present Illness History of Present Illness coughing with deep breathing or even walking. occas productive. no CP. no ABEBE. Vitals Vitals Vital Signs Date Time Temp Pulse Resp B/P (MAP) Pulse Ox O2 Delivery O2 Flow Rate FiO2 08/06/16 11:52 Nasal Cannula 2.0 08/06/16 11:00 98.1 94 19 164/106 (125) 97 98.1 Physical Exam General: Alert, Oriented X3, Cooperative, No acute distress Heart: Other (borderline tachy 90s-100s) Lungs: Crackles Abdomen: Normal bowel sounds, Soft, No tenderness Extremities: No edema Skin: No rashes Labs LABS Laboratory Tests Test 08/05/16 16:31 08/05/16 21:45 08/06/16 03:15 08/06/16 07:58 Glucose (Fingerstick) 162 mg/dL (70-99) 135 mg/dL (70-99) 121 mg/dL (70-99) White Blood Count 24.1 x10^3/uL (4.0-11.0) Red Blood Count 3.00 x10^6/uL (4.30-5.70) Hemoglobin 8.2 g/dL (13.0-17.5) Hematocrit 25.3 % (39.0-53.0) Mean Corpuscular Volume 84 fL (79-100) Mean Corpuscular Hemoglobin 27 pg (25-35) Mean Corpuscular Hemoglobin Concent 32 g/dL (31-37) Red Cell Distribution Width 19.1 % (11.5-14.5) Platelet Count 333 x10^3/uL (140-400) Neutrophils (%) (Auto) 97 % (31-73) Lymphocytes (%) (Auto) 1 % (24-48) Monocytes (%) (Auto) 2 % (0-9) Eosinophils (%) (Auto) 0 % (0-3) Basophils (%) (Auto) 0 % (0-3) Neutrophils # (Auto) 23.2 x10^3uL (1.8-7.7) Lymphocytes # (Auto) 0.3 x10^3/uL (1.0-4.8) Monocytes # (Auto) 0.5 x10^3/uL (0.0-1.1) Eosinophils # (Auto) 0.0 x10^3/uL (0.0-0.7) Basophils # (Auto) 0.0 x10^3/uL (0.0-0.2) Sodium Level 139 mmol/L (136-145) Potassium Level 4.1 mmol/L (3.5-5.1) Chloride Level 105 mmol/L (98-107) Carbon Dioxide Level 25 mmol/L (21-32) Anion Gap 9 (6-14) Blood Urea Nitrogen 16 mg/dL (8-26) Creatinine 0.9 mg/dL (0.7-1.3) Estimated GFR (Cockcroft-Gault) 85.5 Glucose Level 143 mg/dL (70-99) Calcium Level 8.4 mg/dL (8.5-10.1) Test 08/06/16 11:30 Glucose (Fingerstick) 175 mg/dL (70-99) Comment Review of Relevant ANA GRIMES MD Aug 06, 2016 13:50
[2016-08-06 15:00] VITALS: BP 176/104
[2016-08-06] MEDS ORDERED: predniSONE 10 MG TABLET PO ONE (15:00)
--- NOTE | 2016-08-06 17:22 | PDOC ---
PROGRESS NOTES Subjective Subjective c/c -f/u of T4N3M0 stage 3B small cell lung cancer Objective Objective Vital Signs Date Time Temp Pulse Resp B/P (MAP) Pulse Ox O2 Delivery O2 Flow Rate FiO2 08/06/16 17:01 Room Air 08/06/16 15:00 98.1 89 19 176/104 (128) 94 98.1 08/06/16 11:52 2.0 Intake and Output 08/06/16 07:00 Intake Total 1490 ml Output Total 500 ml Balance 990 ml Intake Oral 1340 ml IV Total 150 ml Output Urine Total 500 ml # Voids 5 # Bowel Movements 1 Physical Exam Heart: Normal S1, Normal S2 General: Alert, Oriented X3 Lungs: Clear to auscultation Psych/Mental Status: Mental status NL Assessment Assessment Problems Medical Problems: (1) Anemia Status: Acute (2) Chest pain Status: Acute (3) Elevated brain natriuretic peptide (BNP) level Status: Acute (4) Leukocytosis Status: Acute (5) Lung cancer Status: Acute ASSESSMENT AND PLAN: The patient is a 60-year-old male with the following medical problems: 1. T4N3M0 stage 3B small cell lung cancer status post chemoradiation completed on 07/05/2016 and planning to start prophylactic cranial radiation tomorrow. He had a good response to therapy. Plan to do a followup PET scan in 3 months in October. I consulted Dr. Torres as he is due to start his prophylactic cranial irradiation 2. Anemia, likely worsened from recent chemotherapy in this current illness. s/p 1 unit of blood transfused 08/04/16. Hb 8.2 3. Healthcare associated pneumonia. On antibiotics per Dr. Steinberg. Comment Review of Relevant I have reviewed the following items tra (where applicable) has been applied. Labs Laboratory Tests Test 08/04/16 21:01 08/05/16 02:45 08/05/16 07:59 08/05/16 11:45 Glucose (Fingerstick) 255 mg/dL (70-99) 147 mg/dL (70-99) 209 mg/dL (70-99) Vancomycin Level Trough 11.9 mcg/mL (10.0-20.0) Vancomycin Last Dose Date [id number] Vancomycin Last Dose Time 1500 Test 08/05/16 16:31 08/05/16 21:45 08/06/16 03:15 08/06/16 07:58 Glucose (Fingerstick) 162 mg/dL (70-99) 135 mg/dL (70-99) 121 mg/dL (70-99) White Blood Count 24.1 x10^3/uL (4.0-11.0) Red Blood Count 3.00 x10^6/uL (4.30-5.70) Hemoglobin 8.2 g/dL (13.0-17.5) Hematocrit 25.3 % (39.0-53.0) Mean Corpuscular Volume 84 fL (79-100) Mean Corpuscular Hemoglobin 27 pg (25-35) Mean Corpuscular Hemoglobin Concent 32 g/dL (31-37) Red Cell Distribution Width 19.1 % (11.5-14.5) Platelet Count 333 x10^3/uL (140-400) Neutrophils (%) (Auto) 97 % (31-73) Lymphocytes (%) (Auto) 1 % (24-48) Monocytes (%) (Auto) 2 % (0-9) Eosinophils (%) (Auto) 0 % (0-3) Basophils (%) (Auto) 0 % (0-3) Neutrophils # (Auto) 23.2 x10^3uL (1.8-7.7) Lymphocytes # (Auto) 0.3 x10^3/uL (1.0-4.8) Monocytes # (Auto) 0.5 x10^3/uL (0.0-1.1) Eosinophils # (Auto) 0.0 x10^3/uL (0.0-0.7) Basophils # (Auto) 0.0 x10^3/uL (0.0-0.2) Sodium Level 139 mmol/L (136-145) Potassium Level 4.1 mmol/L (3.5-5.1) Chloride Level 105 mmol/L (98-107) Carbon Dioxide Level 25 mmol/L (21-32) Anion Gap 9 (6-14) Blood Urea Nitrogen 16 mg/dL (8-26) Creatinine 0.9 mg/dL (0.7-1.3) Estimated GFR (Cockcroft-Gault) 85.5 Glucose Level 143 mg/dL (70-99) Calcium Level 8.4 mg/dL (8.5-10.1) Test 08/06/16 11:30 08/06/16 16:57 Glucose (Fingerstick) 175 mg/dL (70-99) 120 mg/dL (70-99) Laboratory Tests Test 08/05/16 21:45 08/06/16 03:15 08/06/16 07:58 08/06/16 11:30 Glucose (Fingerstick) 135 mg/dL (70-99) 121 mg/dL (70-99) 175 mg/dL (70-99) White Blood Count 24.1 x10^3/uL (4.0-11.0) Red Blood Count 3.00 x10^6/uL (4.30-5.70) Hemoglobin 8.2 g/dL (13.0-17.5) Hematocrit 25.3 % (39.0-53.0) Mean Corpuscular Volume 84 fL (79-100) Mean Corpuscular Hemoglobin 27 pg (25-35) Mean Corpuscular Hemoglobin Concent 32 g/dL (31-37) Red Cell Distribution Width 19.1 % (11.5-14.5) Platelet Count 333 x10^3/uL (140-400) Neutrophils (%) (Auto) 97 % (31-73) Lymphocytes (%) (Auto) 1 % (24-48) Monocytes (%) (Auto) 2 % (0-9) Eosinophils (%) (Auto) 0 % (0-3) Basophils (%) (Auto) 0 % (0-3) Neutrophils # (Auto) 23.2 x10^3uL (1.8-7.7) Lymphocytes # (Auto) 0.3 x10^3/uL (1.0-4.8) Monocytes # (Auto) 0.5 x10^3/uL (0.0-1.1) Eosinophils # (Auto) 0.0 x10^3/uL (0.0-0.7) Basophils # (Auto) 0.0 x10^3/uL (0.0-0.2) Sodium Level 139 mmol/L (136-145) Potassium Level 4.1 mmol/L (3.5-5.1) Chloride Level 105 mmol/L (98-107) Carbon Dioxide Level 25 mmol/L (21-32) Anion Gap 9 (6-14) Blood Urea Nitrogen 16 mg/dL (8-26) Creatinine 0.9 mg/dL (0.7-1.3) Estimated GFR (Cockcroft-Gault) 85.5 Glucose Level 143 mg/dL (70-99) Calcium Level 8.4 mg/dL (8.5-10.1) Test 08/06/16 16:57 Glucose (Fingerstick) 120 mg/dL (70-99) Medications Current Medications Albuterol/ Ipratropium (Duoneb) 3 ml 1X ONCE NEB Last administered on 12:57; Start 08/03/16 at 12:00; Stop 08/03/16 at 12:01; Status DC Aspirin (Edy Aspirin) 325 mg 1X ONCE PO Last administered on 08/03/16 12:10 ; Start 08/03/16 at 12:00; Stop 08/03/16 at 12:01; Status DC Morphine Sulfate 4 mg PRN Q15MIN PRN IV/SQ PAIN GREATER THAN 3/10 Last administered on 08/03/16 12:11; Start 08/03/16 at 12:00; Stop 08/03/16 at 13:53 ; Status DC Vancomycin HCl (Vanco Per Pharmacy) 1 each PRN DAILY PRN MC SEE COMMENTS Last administered on 08/06/16 12:39; Start 08/03/16 at 13:00; Stop 08/06/16 at 14:52 ; Status DC Levofloxacin/ Dextrose (Levaquin Per Pharmacy) 1 each PRN DAILY PRN MC SEE COMMENTS; Start 08/03/16 at 13:00; Stop 08/05/16 at 13:26; Status DC Aztreonam 2 gm/ Sodium Chloride 100 ml @ 200 mls/hr 1X ONCE IV Last administered on 08/03/16 14:45; Start 08/03/16 at 13:00; Stop 08/03/16 at 13:29 ; Status DC Vancomycin HCl 2 gm/Sodium Chloride 500 ml @ 250 mls/hr 1X ONCE IV Last administered on 08/03/16 15:28; Start 08/03/16 at 13:00; Stop 08/03/16 at 14:59 ; Status DC Levofloxacin/ Dextrose 150 ml @ 100 mls/hr Q24H IV Last administered on 12:38; Start 08/03/16 at 13:00 Ondansetron HCl (Zofran) 4 mg PRN Q8HRS PRN IV NAUSEA/VOMITING; Start 08/03/16 at 14:00; Stop 08/04/16 at 13:59; Status DC Morphine Sulfate 2 mg PRN Q2HR PRN IV PAIN; Start 08/03/16 at 14:00; Stop 08/04 at 13:59; Status DC Acetaminophen (Tylenol) 650 mg PRN Q4HRS PRN PO FEVER Last administered on 08/04 09:40; Start 08/03/16 at 14:00; Stop 08/04/16 at 13:59; Status DC Albuterol/ Ipratropium (Duoneb) 3 ml RTQID NEB Last administered on 08/04/16 12:00; Start 08/03/16 at 16:00; Stop 08/04/16 at 15:59; Status DC Vancomycin HCl 1.5 gm/Sodium Chloride 500 ml @ 250 mls/hr Q12H IV Last administered on 08/05/16 03:56; Start 08/04/16 at 03:00; Stop 08/05/16 at 06:00 ; Status DC Vancomycin HCl 1 each 1X ONCE MC Last administered on 08/05/16 02:30; Start 08/05/16 at 02:30; Stop 08/05/16 at 02:31; Status DC Insulin Aspart (NovoLOG) 0-9 UNITS TIDWMEALS SQ ; Start 08/04/16 at 08:00; Stop 08/04/16 at 10:23; Status DC Dextrose (Dextrose 50%-Water Syringe) 12.5 gm PRN Q15MIN PRN IV SEE COMMENTS; Start 08/03/16 at 19:15 Aspirin (Ecotrin) 81 mg DAILY PO Last administered on 08/06/16 08:02; Start at 09:00 Atorvastatin Calcium (Lipitor) 40 mg HS PO Last administered on 08/05/16 21:46 ; Start 08/03/16 at 21:00 Celecoxib (CeleBREX) 200 mg DAILY PO Last administered on 08/06/16 08:02; Start 08/04/16 at 09:00 Losartan Potassium (Cozaar) 50 mg DAILY PO Last administered on 08/06/16 08:02 ; Start 08/04/16 at 09:00 Magnesium Oxide (Magnesium Oxide) 400 mg TID PO Last administered on 08/06/16 14:29; Start 08/03/16 at 21:00 Acetaminophen (Tylenol) 650 mg 1X PRN PRN PO PRN prior to blood transfusion; Start 08/04/16 at 06:00; Stop 08/05/16 at 05:59; Status DC Pantoprazole Sodium (Protonix) 40 mg DAILYAC PO Last administered on 08/06/16 06:07; Start 08/05/16 at 07:30 Pantoprazole Sodium (Protonix) 40 mg 1X ONCE PO Last administered on 12:05; Start 08/04/16 at 10:15; Stop 08/04/16 at 10:31; Status DC Methylprednisolone Sodium Succinate (SOLU-Medrol 40MG VIAL) 40 mg Q8HRS IV Last administered on 08/05/16 05:55; Start 08/04/16 at 10:15; Stop 08/05/16 at 11:04; Status DC Insulin Aspart (NovoLOG) 0-9 UNITS QIDACHS SQ Last administered on 08/06/16 12 :04; Start 08/04/16 at 11:30 Albuterol/ Ipratropium (Duoneb) 3 ml RTQID NEB Last administered on 08/06/16 17:01; Start 08/04/16 at 20:00 Vancomycin HCl 1.75 gm/Sodium Chloride 500 ml @ 250 mls/hr Q12H IV Last administered on 08/06/16 04:13; Start 08/05/16 at 16:00; Stop 08/06/16 at 14:51 ; Status DC Methylprednisolone Sodium Succinate (SOLU-Medrol 40MG VIAL) 40 mg BID IV Last administered on 08/06/16 08:01; Start 08/05/16 at 21:00; Stop 08/06/16 at 14:51 ; Status DC Albuterol Sulfate (Ventolin Neb Soln) 2.5 mg PRN Q4HRS PRN NEB SHORTNESS OF BREATH; Start 08/05/16 at 11:15 Guaifenesin/ Codeine Phosphate (Robitussin Ac) 5 ml PRN Q6HRS PRN PO COUGH Last administered on 08/06/16 16:24; Start 08/05/16 at 11:15 Acetaminophen/ Hydrocodone Bitart (Lortab 5/325) 1 tab PRN Q4HRS PRN PO MILD PAIN Last administered on 08/05/16 21:59; Start 08/05/16 at 19:30 Zolpidem Tartrate (Ambien) 5 mg PRN QHS PRN PO INSOMNIA Last administered on 21:48; Start 08/05/16 at 19:30 Docusate Sodium (Colace) 100 mg BID PO Last administered on 08/06/16 08:01; Start 08/05/16 at 21:00 Acetaminophen/ Hydrocodone Bitart (Lortab 5/325) 2 tab PRN Q4HRS PRN PO MOD TO SEVERE PAIN; Start 08/05/16 at 22:00 Prednisone (Prednisone) 40 mg 1X ONCE PO Last administered on 08/06/16 16:24 ; Start 08/06/16 at 15:00; Stop 08/06/16 at 15:01; Status DC Active Scripts Active Reported Vitamin D3 (Cholecalciferol (Vitamin D3)) 5,000 Unit Tablet 1 Tab PO HS Magnesium (Magnesium Oxide) 400 Mg Capsule 1 Cap PO TID Calcium 500 + Vit D 200 Caplet (Calcium Carbonate/Vitamin D3) 1 Each Tablet 2 Ea PO BID Losartan Potassium 50 Mg Tablet 50 Mg PO DAILY Aspirin Ec (Aspirin) 81 Mg Tablet.dr 1 Tab PO DAILY Lipitor (Atorvastatin Calcium) 40 Mg Tablet 40 Mg PO HS Celebrex (Celecoxib) 200 Mg Capsule 200 Mg PO DAILY Vitals/I & O Vital Sign - Last 24 Hours 08/05/16 08/05/16 08/05/16 08/05/16 19:00 19:41 19:50 20:00 Temp 96.6 96.6 Pulse 98 Resp 18 20 B/P (MAP) 154/96 (115) Pulse Ox 97 96 96 O2 Delivery Nasal Cannula Room Air Room Air Nasal Cannula O2 Flow Rate 2.0 2.0 2.0 08/05/16 08/05/16 08/05/16 08/06/16 21:59 22:59 23:00 03:00 Temp 97.1 97.0 97.1 97.0 Pulse 90 90 Resp 20 20 18 18 B/P (MAP) 171/103 (125) 169/100 (123) Pulse Ox 96 96 96 96 O2 Delivery Nasal Cannula Nasal Cannula Nasal Cannula Room Air O2 Flow Rate 2.0 2.0 2.0 08/06/16 08/06/16 08/06/16 08/06/16 07:00 07:46 08:00 08:02 Temp 97.5 97.5 Pulse 103 103 Resp 19 B/P (MAP) 165/110 (128) 165/110 Pulse Ox 95 98 O2 Delivery Room Air Nasal Cannula Nasal Cannula O2 Flow Rate 2.0 2.0 08/06/16 08/06/16 08/06/16 08/06/16 11:00 11:52 15:00 17:01 Temp 98.1 98.1 98.1 98.1 Pulse 94 89 Resp 19 19 B/P (MAP) 164/106 (125) 176/104 (128) Pulse Ox 97 94 O2 Delivery Room Air Nasal Cannula Room Air Room Air O2 Flow Rate 2.0 Intake and Output 08/05/16 08/05/16 08/06/16 15:00 23:00 07:00 Intake Total 740 ml 510 ml 240 ml Output Total 500 ml Balance 740 ml 10 ml 240 ml JEWELS STUART MD Aug 06, 2016 17:22
[2016-08-06 19:00] VITALS: BP 167/101
[2016-08-06] MEDS: ZOLPIDEM 5 MG TABLET. PO PRN (20:48)
[2016-08-06] MEDS: hydrALAZINE 20 MG/ML VIAL. IVP PRN (20:49)
[2016-08-06] MEDS: ATORVASTATIN CALCIUM 40 MG TABLET. PO SCH (20:49)
[2016-08-06 23:00] VITALS: BP 173/104
[2016-08-07 03:00] VITALS: BP 173/109
[2016-08-07 07:00] VITALS: BP_SYST 193; BP_SYST 194; BP_DIAS 110; BP_DIAS 120
[2016-08-07] MEDS: INSULIN ASPART 300 UNITS/3 ML INSULN.PEN SQ SCH ×2 (07:30→11:30)
[2016-08-07] MEDS: IPRATRPIUM/ALBUTEROL 0.5/2.5MG 3 ML NEBU. NEB SCH ×3 (07:52→16:06)
[2016-08-07] MEDS: PANTOPRAZOLE 40 MG TABLET.DR. PO SCH (08:10)
[2016-08-07] MEDS: hydrALAZINE 20 MG/ML VIAL. IVP PRN (08:15)
[2016-08-07] MEDS: ASPIRIN ENTERIC COATED 81 MG TABLET.DR. PO SCH (09:00)
[2016-08-07] MEDS ORDERED: amLODIPine BESYLATE 5 MG TABLET PO SCH (09:00)
[2016-08-07] MEDS: DOCUSATE SODIUM 100 MG CAPSULE. PO SCH (09:49)
[2016-08-07] MEDS: LOSARTAN POTASSIUM 50 MG TABLET. PO SCH (09:50)
[2016-08-07] MEDS: CELECOXIB 200 MG CAPSULE. PO SCH (09:50)
[2016-08-07] MEDS: MAGNESIUM OXIDE 400 MG TABLET PO SCH ×2 (09:52→14:02)
[2016-08-07] MEDS: guaiFENesin/CODEINE 100mg/10mg 5 ML LIQUID PO PRN (09:52)
--- NOTE | 2016-08-07 10:08 | PDOC ---
PULMONARY PROGRESS NOTES Subjective Pt feels better with treatment Vitals Vital Signs Date Time Temp Pulse Resp B/P (MAP) Pulse Ox O2 Delivery O2 Flow Rate FiO2 08/07/16 09:51 79 194/110 08/07/16 08:00 Nasal Cannula 2.0 08/07/16 07:53 95 08/07/16 07:00 97.7 19 97.7 ROS: No Nausea, No Chest Pain, No Abdominal Pain, No Increase Cough Lungs: Crackles Cardiovascular: S1, S2 Abdomen: Soft Neuro Exam: Alert Extremities: No Edema Skin: Warm Labs Laboratory Tests Test 08/05/16 11:45 08/05/16 16:31 08/05/16 21:45 08/06/16 03:15 Glucose (Fingerstick) 209 mg/dL (70-99) 162 mg/dL (70-99) 135 mg/dL (70-99) White Blood Count 24.1 x10^3/uL (4.0-11.0) Red Blood Count 3.00 x10^6/uL (4.30-5.70) Hemoglobin 8.2 g/dL (13.0-17.5) Hematocrit 25.3 % (39.0-53.0) Mean Corpuscular Volume 84 fL (79-100) Mean Corpuscular Hemoglobin 27 pg (25-35) Mean Corpuscular Hemoglobin Concent 32 g/dL (31-37) Red Cell Distribution Width 19.1 % (11.5-14.5) Platelet Count 333 x10^3/uL (140-400) Neutrophils (%) (Auto) 97 % (31-73) Lymphocytes (%) (Auto) 1 % (24-48) Monocytes (%) (Auto) 2 % (0-9) Eosinophils (%) (Auto) 0 % (0-3) Basophils (%) (Auto) 0 % (0-3) Neutrophils # (Auto) 23.2 x10^3uL (1.8-7.7) Lymphocytes # (Auto) 0.3 x10^3/uL (1.0-4.8) Monocytes # (Auto) 0.5 x10^3/uL (0.0-1.1) Eosinophils # (Auto) 0.0 x10^3/uL (0.0-0.7) Basophils # (Auto) 0.0 x10^3/uL (0.0-0.2) Sodium Level 139 mmol/L (136-145) Potassium Level 4.1 mmol/L (3.5-5.1) Chloride Level 105 mmol/L (98-107) Carbon Dioxide Level 25 mmol/L (21-32) Anion Gap 9 (6-14) Blood Urea Nitrogen 16 mg/dL (8-26) Creatinine 0.9 mg/dL (0.7-1.3) Estimated GFR (Cockcroft-Gault) 85.5 Glucose Level 143 mg/dL (70-99) Calcium Level 8.4 mg/dL (8.5-10.1) Test 08/06/16 07:58 08/06/16 11:30 08/06/16 16:57 08/06/16 21:17 Glucose (Fingerstick) 121 mg/dL (70-99) 175 mg/dL (70-99) 120 mg/dL (70-99) 168 mg/dL (70-99) Test 08/07/16 07:48 Glucose (Fingerstick) 107 mg/dL (70-99) Laboratory Tests Test 08/06/16 11:30 08/06/16 16:57 08/06/16 21:17 08/07/16 07:48 Glucose (Fingerstick) 175 mg/dL (70-99) 120 mg/dL (70-99) 168 mg/dL (70-99) 107 mg/dL (70-99) Medications Active Scripts Medications Dose Route/Sig Max Daily Dose Days Date Category Vitamin D3 (Cholecalciferol (Vitamin D3)) 5,000 Unit Tablet 1 Tab PO HS 08/03/16 Reported Magnesium (Magnesium Oxide) 400 Mg Capsule 1 Cap PO TID 08/03/16 Reported Calcium 500 + Vit D 200 Caplet (Calcium Carbonate/Vitamin D3) 1 Each Tablet 2 Ea PO BID 08/03/16 Reported Losartan Potassium 50 Mg Tablet 50 Mg PO DAILY 07/08/16 Reported Aspirin Ec (Aspirin) 81 Mg Tablet.dr 1 Tab PO DAILY 02/21/16 Reported Lipitor (Atorvastatin Calcium) 40 Mg Tablet 40 Mg PO HS 06/28/15 Reported Celebrex (Celecoxib) 200 Mg Capsule 200 Mg PO DAILY 08/15/13 Reported Impression . 1. Acute respiratory failure, multifactorial in etiology including acute exacerbation of chronic obstructive pulmonary disease, pneumonia 2. Abnormal chest x-ray, compatible wtih pneumonia 3. Pneumonia,? post-obstructive. VS XRT induced lung injury delayed will d/w Dr Torres 4. Acute exacerbation of chronic obstructive pulmonary disease. 5. 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 Obstructive sleep apnea-hypopnea syndrome. 7. Hypertension. 8. Anemia. Plan . home today i spoke with Dr Torres 1. oral anitbx 2. Bronchodilator 3. Prednisone 40 daily till seen in office SEB HOLDER MD Aug 07, 2016 10:08
[2016-08-07 11:00] VITALS: BP 131/86
[2016-08-07] MEDS ORDERED: BISACODYL 10 MG SUPP.RECT. PR ONE (14:00)
--- NOTE | 2016-08-07 15:06 | PDOC ---
Provider Note Provider Note Day 3 of 10 of prophylactic cranial radiation. On ATB and prednisone for treatment of both pneumonia and possible radiation pneumonitis. Breathing is progressively better. Ambulating in the halls. CXR atelectasis and infiltrate in RUL. Impression: Limited small cell lung cancer. He has had chemo and chest radiation. Respiratory sxs could have been due to pneumonia vs radiation pneumonitis. He is covered for both etiologies and symptomatically better overall. Will continue prophylactic cranial radiation as planned. Discussed with Dr Werner, patient and spouse. Ok to discharge from my perspective and complete radiation as an outpatient. IMAN MARIN MD Aug 07, 2016 15:06
[2016-08-07] MEDS ORDERED: HYDR-2758 PO (16:10)
[2016-08-07] MEDS ORDERED: PRED20TA PO (16:10)
[2016-08-07] MEDS ORDERED: AMLO5TAB2 PO (16:10)
[2016-08-07] MEDS ORDERED: PANT40TA5 PO (16:10)
--- NOTE | 2016-08-08 02:28 | DS ---
DATE OF DISCHARGE: 08/07/2016 CHIEF COMPLAINT: Shortness of breath. HOSPITAL COURSE: The patient is a 60-year-old gentleman who had completed his concurrent chemoradiation for small cell lung carcinoma about 1 month ago and was about to start prophylactic whole brain irradiation when he presented with severe shortness of breath, dyspnea on exertion and cough. On chest x-ray, he was found with right upper lobe infiltrate, which was attributed as possible pneumonia versus radiation pneumonitis. Dr. Werner from Pulmonology was consulted and the patient was started on IV steroids along with antibiotics for both entities. Radiation pneumonitis, however, was thought to be the driving force as other symptoms were lacking. With improvement in his clinical status, the patient was deemed safe for discharge on p.o. steroids, no antibiotics. PHYSICAL EXAMINATION: VITAL SIGNS: With a blood pressure of 131/86, heart rate at 95, respiratory rate at 19. He is afebrile. GENERAL: This is a morbidly obese 60-year-old gentleman, awake, alert, in no acute distress. LUNGS: Showing mild rales, especially in the right upper lung. HEART: Regular rate and rhythm. ABDOMEN: Positive bowel sounds, soft, nontender. EXTREMITIES: Show no edema. DISCHARGE DATE: 08/07/2016 DISCHARGE DIAGNOSES: Radiation pneumonitis. DISCHARGE DISPOSITION: To home. DISCHARGE CONDITION: Improved. DISCHARGE MEDICATIONS: Please refer to MAR. DISCHARGE INSTRUCTIONS: The patient will follow up with radiation to the brain as previously arranged. He will see Dr. Torres and Dr. Polanco as previously arranged and follow up with his primary care physician in 1-2 weeks. ANA GRIMES MD DR: THOMAS/nts JOB#: [id number] / [id number] ALBIN Mendez
== END 2016-08-07 17:11 | disposition home or self-care (01) | DRG 871 ==
LOC: ER 11:28 → 5 NORTH 12:53
PROVIDERS: ADMIT Internal Medicine; ATTEND Internal Medicine
PROC: 30233N1 Transfusion of Nonautologous Red Blood Cells into Peripheral Vein, Percutaneous Approach (ICD-10-PCS; principal; 2016-08-04)
DX: A41.9 Sepsis, unspecified organism (principal); J96.01 Acute respiratory failure with hypoxia; J18.9 Pneumonia, unspecified organism; E44.0 Moderate protein-calorie malnutrition; J44.0 Chronic obstructive pulmonary disease with (acute) lower respiratory infection; J44.1 Chronic obstructive pulmonary disease with (acute) exacerbation; J70.0 Acute pulmonary manifestations due to radiation; C34.90 Malignant neoplasm of unspecified part of unspecified bronchus or lung; E78.5 Hyperlipidemia, unspecified; G47.33 Obstructive sleep apnea (adult) (pediatric); I10 Essential (primary) hypertension; D63.8 Anemia in other chronic diseases classified elsewhere; E66.01 Morbid (severe) obesity due to excess calories; Z96.651 Presence of right artificial knee joint; Y95 Nosocomial condition; M19.90 Unspecified osteoarthritis, unspecified site; Y84.2 Radiological procedure and radiotherapy as the cause of abnormal reaction of the patient, or of later complication, without mention of misadventure at the time of the procedure; E11.9 Type 2 diabetes mellitus without complications; Z80.0 Family history of malignant neoplasm of digestive organs; Z80.1 Family history of malignant neoplasm of trachea, bronchus and lung; Z82.49 Family history of ischemic heart disease and other diseases of the circulatory system; Z85.118 Personal history of other malignant neoplasm of bronchus and lung; Z87.891 Personal history of nicotine dependence; Z92.21 Personal history of antineoplastic chemotherapy; Z92.3 Personal history of irradiation; Z95.5 Presence of coronary angioplasty implant and graft; Z98.84 Bariatric surgery status; Z68.36 Body mass index [BMI] 36.0-36.9, adult; Z88.0 Allergy status to penicillin; Z91.018 Allergy to other foods
CPT/HCPCS: 36415; 71010; 77412; 80048; 80053; 80202; 82962; 83880; 84484; 85007; 85027; 85610; 85730; 86850; 86900; 86901; 86920; 93005; 94250; 94640; 94760; 96374; J0360; J1815; J1956; J2270; J2920; J3370; J3490; J7040; J7512; J7620; P9016; 99285-25

== ENCOUNTER → 2016-10-24 | Outpatient (CLI) | payer OTHER ==
[2016-08-05 08:05] VITALS: BP 165/96
[~2016-10-24] MED LIST changes: +AMLO5TAB2 PO; +CALC-56 PO; +GADOBUTROL 10 MMOL/10 ML VIAL IV ONE; +HYDR-2758 PO; +LISI1TAB7 PO; +MAGN400C PO; +MAGN400T3 PO; +PANT40TA5 PO; +PRED20TA PO
--- NOTE | 2016-10-24 12:27 | RAD ---
MRI Brain with and without contrast History: Lung cancer with occipital headaches on the right side Technique: Multiplanar, multi sequential pre and postcontrast MR imaging was performed of the brain. Contrast: 10 cc Gadavist Comparison: April 22, 2016 Findings: There is no evidence of recent infarct or cytotoxic edema. The ventricles, sulci, and cisterns are within normal limits in size and configuration. There is no significant midline shift, intraaxial mass effect, or focal abnormal extra-axial fluid collection. There are again multiple foci of T2 and FLAIR hyperintense signal abnormality of the supratentorial white matter bilaterally not associated with enhancement. There is no significant hemosiderin deposition the brain parenchyma. There is no nodular parenchymal or leptomeningeal enhancement. There is preservation of the major intracranial flow-voids at the skull base. The cerebellar tonsils are normal in location. There is no significant abnormality of the pineal gland or pituitary gland. Paranasal sinuses are overall aerated. There is mild thickening of the bilateral mastoid air cells. There is preserved marrow signal of the clivus. Impression: 1. There is no new abnormal intracranial enhancement. There are multiple foci of T2 and FLAIR hyperintense abnormality of the supratentorial white matter bilaterally, nonspecific findings which may be due to chronic microvascular ischemic disease.. Electronically signed by: Talat Hendricks MD (10/24/2016 12:24 PM) [id number]
--- NOTE | 2016-10-24 12:59 | RAD ---
FDG tumor localization scan, PET/CT, 10/24/2016: History: Restaging lung cancer Following IV injection of 11.8 mCi of 18 F-FDG, imaging was performed from the skull base to the proximal thighs. The noncontrast CT component was performed for attenuation correction and anatomic localization purposes rather than for primary diagnosis. The patient's blood glucose level at the time of injection was 116 mg/DL. Comparison is made to a study from 07/25/2016. There are small persistent foci of increased FDG uptake along the anterosuperior aspect of the right hilum and in the right paratracheal region. These 2 small adjacent foci each demonstrate a maximum SUV of just over 5. Similar findings were present on the previous study. Streaky right parahilar opacities have increased since the previous study. The most prominent elongated bandlike opacity extends posteriorly into the right apical region. It demonstrates a maximum dimension of the of approximately 3.2. More inferiorly and posteriorly in the right upper lobe there is an additional elongated parenchymal opacity demonstrating a maximum SUV of 5.0. Several other hazy and streaky right parahilar opacities demonstrate low level FDG uptake. There are unchanged pleural opacities posteriorly in the right upper chest demonstrating low level FDG uptake. No new mediastinal hypermetabolic process is seen. The left chest activity is unremarkable. Normal GI tract and urinary tract activity is present in the abdomen and pelvis. No hypermetabolic abdominal process is seen. Physiologic activity is evident in the neck. Incidental CT findings include the presence of cardiomegaly with coronary artery calcifications. A small amount of pericardial fluid is present, increased since the previous exam. Probable gallstones are noted. There is a small low density left adrenal nodule compatible with a benign adenoma. Moderate colonic diverticulosis is present. IMPRESSION: 1. Stable small right suprahilar and right paratracheal hypermetabolic foci. 2. Increasing streaky right parahilar opacities which are mildly hypermetabolic as described above. This likely represents inflammation on a post radiation or infectious basis. Satellite foci of residual or recurrent tumor cannot be excluded. 3. No PET evidence of metastatic disease in the abdomen or pelvis.
== END | disposition home or self-care (01) ==
LOC: PETSC 09:26
PROVIDERS: ATTEND Internal Medicine Hematology & Oncology
DX: C34.11 Malignant neoplasm of upper lobe, right bronchus or lung (principal); E27.8 Other specified disorders of adrenal gland; K57.30 Diverticulosis of large intestine without perforation or abscess without bleeding; R51 Headache
CPT/HCPCS: 70553; 78815; A9552; A9585

== ENCOUNTER → 2016-11-05 | Outpatient (CLI) | payer OTHER ==
[2016-08-05 08:05] VITALS: BP 165/96
[~2016-11-05] MED LIST changes: -GADOBUTROL 10 MMOL/10 ML VIAL IV ONE
[2016-11-05 08:49] LABS: ALBUMIN 3.5 g/dL (3.4-5.0); ALBUMIN/GLOBULIN RATIO 0.9 (1.0-1.7); CALCIUM 8.7 mg/dL (8.5-10.1); CHOLESTEROL/HDL RATIO 6.7; GFR 75.5; MAGNESIUM 1.9 mg/dL (1.8-2.4); POTASSIUM 3.1 mmol/L (3.5-5.1); TOTAL BILIRUBIN 0.4 mg/dL (0.2-1.0); TOTAL PROTEIN 7.3 g/dL (6.4-8.2)
== END | disposition home or self-care (01) ==
LOC: LAB 08:02
PROVIDERS: ATTEND Nurse Practitioner
DX: I10 Essential (primary) hypertension (principal)
CPT/HCPCS: 36415; 80053; 80061; 83735

== ENCOUNTER → 2016-11-07 | Outpatient (CLI) | payer OTHER ==
[2016-08-05 08:05] VITALS: BP 165/96
[~2016-11-07] MED LIST changes: +REGADENOSON 0.4 MG/5 ML DISP.SYRIN. IV ONE
--- NOTE | 2016-11-07 12:55 | CARD ---
APPROVED REPORT EXAM: Two-dimensional and M-mode echocardiogram with Doppler and color Doppler. Other Information Quality : Fair Rhythm : NSR INDICATION Cardiac Disease: CAD 2D DIMENSIONS RVDd3.1 (2.9-3.5cm)Left Atrium(2D)3.7 (1.6-4.0cm) IVSd1.2 (0.7-1.1cm)Aortic Root(2D)3.2 (2.0-3.7cm) LVDd4.5 (3.9-5.9cm)LVOT Diameter2.2 (1.8-2.4cm) PWd1.2 (0.7-1.1cm)LVDs3.4 (2.5-4.0cm) FS (%) 25.3 %SV43.1 ml LVEF(%)50.9 (>50%) Aortic Valve AoV Peak Latrell.128.6cm/sAoV VTI27.8cm AO Peak GR.6.6mmHgLVOT Peak Latrell.101.2cm/s LVOT VTI 21.82cmAO Mean GR.4mmHg AKUA (VMAX)2.30nf4JJX (VTI)2.85cm2 Mitral Valve MV E Jdmyyvme48.4cm/sMV DECEL YOHR208nx MV A Nhkblicx16.0cm/sMV E Mean Gr.1mmHg MV DQF26tiO/A Ratio0.9 MV A Czkgpgat454gyVWW (PHT)2.84cm2 TDI E/Lateral E'11.0E/Medial E'9.3 Pulmonary Valve PV Peak Ybgzqeqa64.1cm/sPV Peak Grad.4mmHg RVOT VTI16.0cm Pulmonary Vein S1 Hoymyjab10.0cm/sD2 Keuljlfn47.2cm/s LEFT VENTRICLE The left ventricle is normal size. There is borderline concentric left ventricular hypertrophy. Left ventricle systolic function is normal. The Ejection Fraction is 55%. There is normal LV segmental wal l motion. The left ventricular diastolic function and filling is normal for age. There is no ventricu lar septal defect visualized. RIGHT VENTRICLE The right ventricle is normal size. The right ventricular systolic function is normal. ATRIA The left atrium size is normal. The right atrium size is normal. The interatrial septum is intact wit h no evidence for an atrial septal defect or patent foramen ovale as noted on 2-D or Doppler imaging. AORTIC VALVE The aortic valve is not well visualized but appears to open well. Doppler and Color Flow revealed no significant aortic regurgitation. There is no significant aortic valvular stenosis. MITRAL VALVE The mitral valve is normal in structure and function. There is no mitral valve stenosis. Doppler and Color Flow revealed trace mitral regurgitation. TRICUSPID VALVE The tricuspid valve is not well visualized. Doppler and Color Flow revealed no tricuspid valve regurg itation noted. Unable to estimate PA pressure. There is no tricuspid valve stenosis. PULMONIC VALVE The pulmonic valve is not well visualized. Doppler and Color Flow revealed trivial pulmonic valvular regurgitation. There is no pulmonic valvular stenosis. GREAT VESSELS The aortic root is normal in size. The ascending aorta is normal in size. Normal pulmonary venous tulio w (Doppler). The IVC is normal in size and collapses >50% with inspiration. PERICARDIAL EFFUSION There is no evidence of significant pericardial effusion. Critical Notification Critical Value: No <Conclusion> Left ventricle systolic function is normal. The Ejection Fraction is 55%. There is normal LV segmental wall motion. Doppler and Color Flow revealed trace mitral regurgitation. There is no evidence of significant pericardial effusion.
--- NOTE | 2016-11-07 13:35 | RAD ---
APPROVED REPORT Test Type: Pharmacological Stress Nurse/Tech: natalia lowe Test Indications: CAD Cardiac History: HTN, CAD, CARDIAC STENT 2000, SEE EHR Medications: SEE EHR Medical History: CHEMOTHERAPY, LUNG CA JUNE 2016, SEE EHR Resting ECG: SR Resting Heart Rate: 57 bpm Resting Blood Pressure: 169/94mmHg Pretest Chest Pain: No chest pain Nurse/Tech Notes NO RESPIRATORY DISTRESS, NO CHEST PAIN. Consent: The procedure was explained to the patient in lay terms. Informed consent was witnessed. Steffen eout was entered into Advise Only. History and Stress Test performed by RT Cesar Castro) (N) Pharm. Details Pharmacologic stress testing was performed using 0.4mg per 5ml of regadenoson given intravenously ove r 7-10 seconds. Stress Symptoms HEADACHE, STOMACH CRAMPING. POST EXERCISE Reason for Termination: Infusion complete Max HR: 92 bpm Max Blood Pressure: 162/89mmHg Chest Pain: No. Arrhythmia: No. ST Change: No. INTERPRETATION Stress EKG Conclusion: Baseline EKG showed sinus rhythm. No ischemic changes at peak stress. No arr hythmias. Imaging Protocol IMAGE PROTOCOL: Rest Tc-99m/stress Tc-99m 1 day Rest: Stress: Viability: Radiopharm.Tc99m BidjqrtguEn44z Sestamibi Igll08aUq 34mCi Duration 15min. 12min. Img Date 11/07/2016 11/07/2016 Inj-Img Heux80iof. 60min. Rest Admin Site:IV - Left AntecubitalAdministrator:RT David (R)(N) Stress Admin Site: IV - Left AntecubitalAdministrator: RT Matthew (R)(N) STRESS DATA End Diast. Vol.75.0mlAv. Heart Rate78.0bpm End Syst. Vol.17.0mlCO Index BSA0.0L/min Myocardial Ilea475.0gEject. Jhdluuvt43.0% Stress Rates Pk. Fill Rate3.75EDV/secLVtime Pk. Fill 222.89msec Pk. Empty Rate4.74ESV/secLVtime Pk. Ldcwv081.85msec 02/19 Pk. Fill0.47EDV/sec Stress Scores Regional WT1.00Summed WT5.00 Regional WM0.00Summed WM1.00 Study quality was good. Left Ventricular size was Normal at Rest and Stress. Lung uptake was Normal. Left Ventricular ejection fraction is 77%. The rest and stress images show normal perfusion, normal contraction and thickening. LV Perf. Quant 17 Seg. SSS2.00 17 Seg. SRS1.00 17 Seg. SDS1.00 Stress Defect Extent (% LAD)0.00Rest Defect Extent (% LAD)0.00Rev. Defect Extent (% LAD)0.00 Stress Defect Extent (% LCX) 15.00Rest Defect Extent (% LCX)23.80Rev. Defect Extent (% LCX)0.00 Stress Defect Extent (% RCA)0.00Rest Defect Extent (% RCA)0.00Rev. Defect Extent (% RCA)0.00 Stress Defect Extent (% CAS)2.60Rest Defect Extent (% CAS)4.10Rev. Defect Extent (% CAS)0.00 Conclusion 1. Regadenoson cardioisotope stress test did not show any evidence of ischemia or infarct. 2. Normal left ventricular systolic function with ejection fraction calculated at 77%. 3. Low risk for cardiac events.
== END | disposition home or self-care (01) ==
LOC: NM 09:30
PROVIDERS: ATTEND Nurse Practitioner
DX: I25.10 Atherosclerotic heart disease of native coronary artery without angina pectoris (principal); I51.7 Cardiomegaly; Z86.79 Personal history of other diseases of the circulatory system; Z85.118 Personal history of other malignant neoplasm of bronchus and lung
CPT/HCPCS: 78452; 93017; 93306; 96374; 96375; 96376; A9500; J2785

== ENCOUNTER → 2017-01-14 | Outpatient (CLI) | payer OTHER ==
[2016-08-05 08:05] VITALS: BP 165/96
[~2017-01-14] MED LIST changes: -REGADENOSON 0.4 MG/5 ML DISP.SYRIN. IV ONE
[2017-01-14 10:21] LABS: CALCIUM 9.2 mg/dL (8.5-10.1); CREATININE 1.1 mg/dL (0.7-1.3); GFR 67.6
== END | disposition home or self-care (01) ==
LOC: LAB 09:45
PROVIDERS: ATTEND Internal Medicine Cardiovascular Disease
DX: E87.6 Hypokalemia (principal)
CPT/HCPCS: 36415; 80048

== ENCOUNTER → 2017-01-23 | Outpatient (CLI) | payer OTHER ==
[2016-08-05 08:05] VITALS: BP 165/96
--- NOTE | 2017-01-23 11:29 | RAD ---
FDG tumor localization scan, PET/CT, 01/23/2017: History: Lung cancer Following IV injection of 13.2 mCi of 18 F-FDG, imaging was performed from the skull base to the proximal thighs. The noncontrast CT component was performed for attenuation correction and anatomic localization purposes rather than for primary diagnosis. The patient's blood glucose level at the time of injection was 110 MG/DL. Comparison is made to a study from 10/24/2016. There are new patchy areas of abnormal FDG uptake present within the bones. This is evident at multiple levels in the lower thoracic and lumbar spine in the bony pelvis and in both humeri and femurs. The patchy pattern suggest metastatic disease rather than rebound marrow hyperplasia. The CT component demonstrates persistent bilateral moderate streaky paramediastinal and parahilar pulmonary opacities, greatest in the upper chest. There is abnormal FDG uptake associated with some of these densities. There is new abnormal FDG uptake in these densities in the medial aspect of the left upper lobe with a maximum SUV of approximately 5. Abnormal FDG uptake seen posteriorly in the right mid chest on the previous study has regressed. A cluster of small foci of increased activity at the right hilum and in the right paratracheal region demonstrate maximum SUV's in the 3-5 range. These lie in an area where there is persistent narrowing of the right main bronchus. These foci are slightly more prominent than on the previous study. Multiple foci of abnormal FDG uptake of developed in the liver. The largest of these lies in the left lobe and measures approximately 7-8 cm. It demonstrates a maximum SUV of 14. There is new hypermetabolic adenopathy in the mesentery and retroperitoneum. This includes a 5-6 cm node or node cluster in the celiac region demonstrate a maximum SUV of 12. Smaller hypermetabolic periaortic lymph nodes are also present. IMPRESSION: 1. Small foci of increased FDG uptake at the right hilum and in the adjacent right paratracheal region have progressed only slightly since 10/24/2016. 2. Increased FDG uptake related to paramediastinal pulmonary opacities has worsened on the left and improved on the right. The findings are compatible with a combination of postradiation change and pneumonia. 3. New hypermetabolic adenopathy in the abdomen compatible with metastatic disease. 4. New hypermetabolic liver lesions compatible with metastatic disease. 5. Multifocal osseous hypermetabolic lesions most likely a metastatic basis.
== END | disposition home or self-care (01) ==
LOC: PETSC 07:29
PROVIDERS: ATTEND Internal Medicine Hematology & Oncology
DX: C34.11 Malignant neoplasm of upper lobe, right bronchus or lung (principal); K76.9 Liver disease, unspecified; J18.8 Other pneumonia, unspecified organism
CPT/HCPCS: 78815; A9552

== ENCOUNTER 2017-02-05 12:29 | Emergency (ER) | payer OTHER ==
[~2017-02-05] VITALS: Ht 172.7 cm; Wt 108.4 kg
[~2017-02-05 12:29] MED LIST changes: +POTASSIUM CHLO10 MEQ PO; +PSYL575P4 PO
[2017-02-05] MEDS ORDERED: IV NORMAL SALINE 500ML BAG 500 ML IV ONE (13:15)
[2017-02-05] MEDS ORDERED: HYDROmorphone 2 MG/ML VIAL IV PRN (13:15)
[2017-02-05 13:52] LABS: BASO % 1 % (0-3); EOS % 1 % (0-3); HEMATOCRIT 39.5 % (39.0-53.0); HEMOGLOBIN 13.2 g/dL (13.0-17.5); LYMPH # 0.4 x10^3/uL (1.0-4.8); LYMPH % 5 % (24-48); MEAN CORPUSCULAR HEMOGLOBIN 30 pg (25-35); MEAN CORPUSCULAR HGB CONC 33 g/dL (31-37); MEAN CORPUSCULAR VOLUME 89 fL (79-100); MONO % 3 % (0-9); NEUT % 91 % (31-73); PLATELET COUNT 155 x10^3/uL (140-400); RED BLOOD COUNT 4.44 x10^6/uL (4.30-5.70); RED CELL DISTRIBUTION WIDTH 15.4 % (11.5-14.5); WHITE BLOOD COUNT 8.6 x10^3/uL (4.0-11.0)
--- NOTE | 2017-02-05 13:52 | PHYS DOC ---
Past Medical History Past Medical History: Alcoholism, Cancer, Hypertension Additional Past Medical Histor: Seasonal allergies,ENRIKE,RAD&CHEMO FOR LUNG CA( stage 3)/"It's Stage IV now." Past Surgical History: Other Additional Past Surgical Histo: Cardiac stent x 1,Stomach sleeve., R. knee,back ,hemeroid,liver abcess Additional Information: Pt. quit smoking in 1993-smoked 1.5 PPD and started smoking at age 14. Alcohol Use: None Additional Information: Reports quit drinking in 1986, would drink about a 6 pack. Drug Use: None Adult General Chief Complaint Chief Complaint: LOWER BACK PAIN OR INJURY HPI HPI 61-year-old male with a history of metastatic lung cancer which pt says is in the back and the liver for which he is currently getting chemotherapy who presents to the emergency Department with lower lumbar back pain. He describes feeling generally weak in the legs but was able to ambulate in the emergency department. He denies any focal weakness. He also has had intermittent polyuria for the past 2 months. The pain in his back is a sharp shooting pain that does not radiate it is moderate to severe intermittent and mildly alleviated by hydrocodone. He denies perineal paresthesias or changes in sensation in his legs. He recently received chemotherapy but does not know which medication was given. Review of systems is negative for chest pain. Positive for mild shortness of breath related to exertion which she states is typical for his chemotherapy. He denies fevers or chills. He denies headache neck stiffness confusion. He denies abdominal pain nausea vomiting. All other review of systems is negative unless otherwise noted in history of present illness. ED course: 61-year-old male presenting to the emergency department today with lower lumbar back pain. On arrival he is afebrile with mildly tachycardic heart rate likely secondary to pain. On physical examination he is alert and oriented. He describes a pain in the lumbar part of his back. On examination of the back is no erythema or fluctuance. Mildly tender in the lower lumbar region. No step-offs abrasions lacerations or ecchymosis. 5 out of 5 strength in the lower extremities bilaterally. 2+ deep tendon reflexes in the knees. He reports normal sensation in both feet and legs. MRI obtained which showed diffuse metastatic disease to the lower lumbar back. Not suggestive of cauda equina syndrome. Blood work shows increasing LFTs. MRI shows cholelithiasis. Patient has negative Treviño sign on physical examination and a nontender abdomen. He denies abdominal pain. I discussed the case with our oncologist Dr. Stuart and discussed the case with him and he agrees with plan of care. He does not believe steroids would be beneficial in this case. The patient was in discharged home with oxycodone to follow-up with Dr. Stuart and his primary care physician within the next 4-5 days. The patient was then discharged home in stable condition to follow up with their primary care physician over the next 2- 3 days. They were to return if their symptoms worsened or if they were concerned for any reason. Bidb-lw-opzn discharge instructions and return precautions were given. Patient's questions were answered to their satisfaction. Patient is comfortable plan. Review of Systems Review of Systems SEE ABOVE. Current Medications Current Medications Current Medications Medications (Trade) Dose Ordered Sig/Ginny Start Time Stop Time Status Last Admin Dose Admin Gadobutrol (Gadavist) 10 mmol 1X ONCE 02/05/17 14:15 02/05/17 14:16 DC 02/05/17 14:32 10 MMOL Hydromorphone HCl (Dilaudid) 0.5 mg PRN Q30MIN PRN 02/05/17 13:15 02/05/17 13:51 0.5 MG Sodium Chloride 500 ml @ 500 mls/hr 1X ONCE 02/05/17 13:15 02/05/17 14:14 DC 02/05/17 13:52 500 MLS/HR Allergies Allergies Allergies Coded Allergies Type Severity Reaction Last Updated Verified Penicillins Allergy Intermediate RASH A CHILD 06/24/16 Yes soy Adverse Reaction Intermediate Nausea and Vomiting 06/24/16 Yes Physical Exam Physical Exam SEE ABOVE Constitutional: Well developed, well nourished, no acute distress, non-toxic appearance. HENT: Normocephalic, atraumatic, bilateral external ears normal, oropharynx moist, no oral exudates, nose normal. [] Eyes: PERRLA, EOMI, conjunctiva normal, no discharge. [] Neck: Normal range of motion, no tenderness, supple, no stridor. Cardiovascular:Heart rate regular rhythm, no murmur Lungs & Thorax: Bilateral breath sounds clear to auscultation [] Abdomen: Bowel sounds normal, soft, no tenderness, no masses, no pulsatile masses. Skin: Warm, dry, no erythema, no rash. [] Back: SEE ABOVE Extremities: No tenderness, no cyanosis, no clubbing, ROM intact, no edema. [] Neurologic: Alert and oriented X 3, normal motor function, normal sensory function, no focal deficits noted. [] Psychologic: Affect normal, judgement normal, mood normal. Current Patient Data Vital Signs Vital Signs Date Time Temp Pulse Resp B/P (MAP) Pulse Ox O2 Delivery O2 Flow Rate FiO2 02/05/17 13:51 21 94 Room Air 02/05/17 12:50 96.3 99 142/87 (105) 96.3 Lab Values Laboratory Tests Test 02/05/17 13:40 White Blood Count 8.6 x10^3/uL (4.0-11.0) Red Blood Count 4.44 x10^6/uL (4.30-5.70) Hemoglobin 13.2 g/dL (13.0-17.5) Hematocrit 39.5 % (39.0-53.0) Mean Corpuscular Volume 89 fL (79-100) Mean Corpuscular Hemoglobin 30 pg (25-35) Mean Corpuscular Hemoglobin Concent 33 g/dL (31-37) Red Cell Distribution Width 15.4 % (11.5-14.5) H Platelet Count 155 x10^3/uL (140-400) Neutrophils (%) (Auto) 91 % (31-73) H Lymphocytes (%) (Auto) 5 % (24-48) L Monocytes (%) (Auto) 3 % (0-9) Eosinophils (%) (Auto) 1 % (0-3) Basophils (%) (Auto) 1 % (0-3) Neutrophils # (Auto) 7.8 x10^3uL (1.8-7.7) H Lymphocytes # (Auto) 0.4 x10^3/uL (1.0-4.8) L Monocytes # (Auto) 0.2 x10^3/uL (0.0-1.1) Eosinophils # (Auto) 0.1 x10^3/uL (0.0-0.7) Basophils # (Auto) 0.0 x10^3/uL (0.0-0.2) Segmented Neutrophils % 79 % (35-66) H Band Neutrophils % 10 % (0-9) H Lymphocytes % 6 % (24-48) L Atypical Lymphocytes % (Manual) 1 % (0-0) H Monocytes % 3 % (0-10) Eosinophils % 1 % (0-5) Platelet Estimate Adequate (ADEQUATE) Sodium Level 141 mmol/L (136-145) Potassium Level 3.9 mmol/L (3.5-5.1) Chloride Level 104 mmol/L (98-107) Carbon Dioxide Level 21 mmol/L (21-32) Anion Gap 16 (6-14) H Blood Urea Nitrogen 13 mg/dL (8-26) Creatinine 1.1 mg/dL (0.7-1.3) Estimated GFR (Cockcroft-Gault) 67.6 BUN/Creatinine Ratio 12 (6-20) Glucose Level 115 mg/dL (70-99) H Calcium Level 9.0 mg/dL (8.5-10.1) Total Bilirubin 0.4 mg/dL (0.2-1.0) Aspartate Amino Transferase (AST) 152 U/L (15-37) H Alanine Aminotransferase (ALT) 94 U/L (16-63) H Alkaline Phosphatase 173 U/L (46-116) H Total Protein 7.7 g/dL (6.4-8.2) Albumin 3.3 g/dL (3.4-5.0) L Albumin/Globulin Ratio 0.8 (1.0-1.7) L Lipase 134 U/L (73-393) Laboratory Tests 02/05/17 13:40 Laboratory Tests 02/05/17 13:40 EKG EKG [] Radiology/Procedures Radiology/Procedures [] Course & Med Decision Making Course & Med Decision Making Pertinent Labs and Imaging studies reviewed. (See chart for details) [] Dragon Disclaimer Dragon Disclaimer This electronic medical record was generated, in whole or in part, using a voice recognition dictation system. Departure Departure Impression: Primary Impression: Lumbar back pain Disposition: 01 HOME, SELF-CARE Condition: STABLE Referrals: ALBIN JETER DO (PCP) JEWELS STUART MD Patient Instructions: Back Pain, Adult Additional Instructions: Thank you for allowing us to participate in your care today. Followup with your primary care physician in 3 days if your symptoms do not improve. Call your Primary Doctor tomorrow and inform them of your visit today. If you do not have a primary care provider you can ask for a list of our primary care providers. Return to the emergency department you have any new or concerning findings. This should be evaluated by the primary care physician and any necessary consulting services for continued management within a few days after discharge. Return to emergency room if you have any new or concerning symptoms including but not limited to fever, chills, nausea, vomiting, intractable pain, any new rashes, chest pain, shortness of air, uncontrolled bleeding, difficulty breathing, and/or vision loss. You may have been prescribed medication that can change in your level of thinking and ability to operate machinery. These medications include hydrocodone and Ativan. Also, Benadryl has been known to do this as well. Be sure to check with your pharmacist and ask if the medications you've prescribed can affect your level of consciousness. I recommend not operating heavy machinery or driving while on medication such as these. Scripts Oxycodone/Apap 5-325 (PERCOCET 5-325 MG TABLET) 1 Each Tablet 1 TAB PO PRN Q6HRS Y for PAIN, #15 TAB 0 Refills Prov: SAMY SOLIS MD 02/05/17 SAMY SOLIS MD Feb 05, 2017 13:52
[2017-02-05 14:13] LABS: CREATININE 1.1 mg/dL (0.7-1.3); GFR 67.6; POTASSIUM 3.9 mmol/L (3.5-5.1)
[2017-02-05] MEDS ORDERED: GADOBUTROL 10 MMOL/10 ML VIAL IV ONE (14:15)
[2017-02-05 14:19] LABS: ALBUMIN 3.3 g/dL (3.4-5.0); ALBUMIN/GLOBULIN RATIO 0.8 (1.0-1.7); TOTAL BILIRUBIN 0.4 mg/dL (0.2-1.0); TOTAL PROTEIN 7.7 g/dL (6.4-8.2)
[2017-02-05 14:56] LABS: % EOS 1 % (0-5); PLT ESTIMATE ADEQUATE (ADEQUATE)
--- NOTE | 2017-02-05 15:00 | RAD ---
MRI Lumbar Spine without and with contrast History: Low back pain, history of metastatic lung cancer Technique: Multiplanar, multi sequential pre and postcontrast MR imaging was performed of the lumbar spine. Contrast: 10 cc Gadavist Comparison: None Findings: There is diffuse osseous metastatic disease with marrow edema and enhancement. Lumbar vertebral body stature is overall maintained. There is a large hemangioma of the L1 vertebral body. There is no significant osseous retropulsion of the lumbar spine. There is mild buckling of the posterior cortex of T11 also with probable mild anterior epidural enhancement without significant spinal stenosis. There is no nodular enhancement of the conus or cauda equina. There is moderate degenerative disc disease at L5-S1 and to a somewhat lesser degree at L4-5, minimally at L3-4. There is mild lumbar levoscoliosis. Not fully included, there is fairly extensive hepatic metastatic disease. There is cholelithiasis. T12-L1: Spinal canal and neural foramina are adequate. L1-2: Neural foramina and spinal canal are adequate. L2-3: This level was not included on the axial images. Neural foramina and spinal canal are adequate. L3-4: There is minimal disc osteophyte complex. Spinal canal is overall adequate. There is bulge/protrusion in the left extraforaminal region without significant impingement of the extraforaminal left L3 nerve root. Neural foramina are overall adequate. L4-L5: There is disc osteophyte complex and bulge, more eccentric to the far lateral recess. There is [id number] narrowing of the left lateral recess with the contact of the descending left L5 nerve root, very mild narrowing of the far right lateral recess. There is minimal narrowing of the neural foramina from posteriorly greater on the left. L5-S1: There is left laminectomy defect. There is minimal disc osteophyte complex eccentric to the left inferior neural foramen. Spinal canal is adequate. Neural foramina are overall adequate. Impression: 1. There is diffuse osseous metastatic disease, no significant osseous retropulsion or pathologic fracture. There is likely some mild anterior epidural enhancement at the T11 level without significant spinal stenosis. 2. There is [id number] narrowing of the far left lateral recess at L4-5, contact descending left L5 nerve root. 3. There is minimal narrowing of the neural foramina bilaterally at L4-5. Bulge/protrusion in the left extraforaminal region at L3-4 is near the extraforaminal left L3 nerve root without significant displacement. 4. There is moderate degenerative disc disease at L5-S1 and to a somewhat lesser degree at L4-5. 5. Not fully included, there apparently is diffuse hepatic metastatic disease. There is cholelithiasis. Electronically signed by: Talat Hendricks MD (02/05/2017 2:57 PM) [id number]
[2017-02-05] MEDS ORDERED: OXYC-323 PO (15:08)
[2017-02-05 16:50] VITALS: BP 127/79
== END 2017-02-05 16:50 | disposition home or self-care (01) ==
LOC: ER 12:29
DX: M54.5 Low back pain (principal); R53.1 Weakness; R06.02 Shortness of breath; R00.0 Tachycardia, unspecified; F10.20 Alcohol dependence, uncomplicated; I10 Essential (primary) hypertension; G47.33 Obstructive sleep apnea (adult) (pediatric); Z95.5 Presence of coronary angioplasty implant and graft; Z87.891 Personal history of nicotine dependence; Z85.118 Personal history of other malignant neoplasm of bronchus and lung; Z88.0 Allergy status to penicillin; Z91.018 Allergy to other foods; Z92.21 Personal history of antineoplastic chemotherapy
CPT/HCPCS: 36415; 72158; 80053; 83690; 85025; 96361; 96374; 96375; 99285; A9585; J1170; J7040; 85007

== ENCOUNTER 2017-02-11 06:46 | Outpatient (CLI) | payer OTHER ==
[2017-02-11] VITALS (9 sets, daily range): BP systolic 116–149; BP diastolic 78–100
[~2017-02-11] VITALS: Ht 172.7 cm; Wt 108.9 kg
[~2017-02-11 06:46] MED LIST changes: +OXYC-323 PO
[2017-02-11 08:01] LABS: BASO % 1 % (0-3); EOS % 1 % (0-3); HEMATOCRIT 41.1 % (39.0-53.0); HEMOGLOBIN 13.7 g/dL (13.0-17.5); LYMPH # 0.4 x10^3/uL (1.0-4.8); LYMPH % 11 % (24-48); MEAN CORPUSCULAR HEMOGLOBIN 29 pg (25-35); MEAN CORPUSCULAR HGB CONC 33 g/dL (31-37); MEAN CORPUSCULAR VOLUME 89 fL (79-100); MONO % 0 % (0-9); NEUT % 87 % (31-73); PLATELET COUNT 121 x10^3/uL (140-400); RED BLOOD COUNT 4.64 x10^6/uL (4.30-5.70); RED CELL DISTRIBUTION WIDTH 15.6 % (11.5-14.5); WHITE BLOOD COUNT 3.8 x10^3/uL (4.0-11.0)
[2017-02-11] MEDS ORDERED: LISI1TAB7 PO (08:10)
[2017-02-11] MEDS ORDERED: CARV25TA PO (08:10)
[2017-02-11 08:11] LABS: PROTHROMBIN TIME PATIENT 12.7 SEC (11.7-14.0)
[2017-02-11 08:13] LABS: CALCIUM 8.6 mg/dL (8.5-10.1); CREATININE 1.1 mg/dL (0.7-1.3); GFR 67.6; POTASSIUM 4.2 mmol/L (3.5-5.1)
[2017-02-11] MEDS ORDERED: MAGN400T22 PO (08:13)
[2017-02-11] MEDS ORDERED: VITA400C36 PO (08:13)
[2017-02-11] MEDS ORDERED: ASCO10002 PO (08:13)
[2017-02-11] MEDS ORDERED: FISH400C4 PO (08:13)
[2017-02-11] MEDS ORDERED: VANCOMYCIN 1GM IVPB FOR OMNI 250 ML ONE (08:24)
[2017-02-11] MEDS ORDERED: LIDOCAINE 2%/EPI 1:100,000 20 ML VIAL. ONE (08:24)
[2017-02-11] MEDS ORDERED: HEPARIN PF 500 UNIT/5 ML DISP.SYRIN. IV ONE ×2 (08:24→09:30)
[2017-02-11] MEDS ORDERED: MIDAZOLAM HCL/PF 5 MG/5 ML VIAL. ONE (08:45)
[2017-02-11] MEDS ORDERED: fentaNYL PF VIAL 100 MCG/2 ML VIAL ONE (08:46)
[2017-02-11 09:11] LABS: % EOS 2 % (0-5); PLT ESTIMATE DECREASED (ADEQUATE)
[2017-02-11 09:12] LABS: ANISOCYTOSIS SLIGHT; OVALOCYTES FEW
[2017-02-11] MEDS ORDERED: VANCOMYCIN 1GM IVPB FOR OMNI 250 ML IRR ONE (09:15)
[2017-02-11] MEDS ORDERED: fentaNYL PF VIAL 100 MCG/2 ML VIAL IV ONE (09:15)
[2017-02-11] MEDS ORDERED: LIDOCAINE 2%/EPI 1:100,000 20 ML VIAL. IJ ONE (09:15)
[2017-02-11] MEDS ORDERED: MIDAZOLAM HCL/PF 5 MG/5 ML VIAL. IV ONE (09:15)
--- NOTE | 2017-02-11 09:45 | PDOC ---
MODERATE SEDATION ASSESSMENT RISKS/ALTERNATIVES Risks/Alternatives Risks and alternatives of this type of sedation and procedure discussed with: RISK/ALTERNATIVES: Patient H & P ON CHART H & P H & P on chart and reviewed for co-morbid conditions and appropriate labs. H&P ON CHART: Yes STATUS PREG STATUS ASSESSED: Yes MEDS/ALLERGIES REVIEWED Meds/Allergies Reviewed Medications and Allergies including time and route of recently administered narcotics and sedatives. MEDS/ALLERGIES REVIEWED: Yes ASA RATING ASA RATING: II AIRWAY ASSESSMENT Airway Assessment Airway patency, oral function limitations, presence of caps, crowns, dentures, partials, and ability to extend neck assessed. AIRWAY ASSESSMENT: Yes MALLAMPATI SCORE MALLAMPATI SCORE: II PRE-SEDATION ASSESSMENT PRE-SEDATION ASSESSMENT: Yes LEATHA RUDOLPH MD Feb 11, 2017 09:45
--- NOTE | 2017-02-11 09:46 | PDOC ---
BRIEF OPERATIVE NOTE Pre-Op Diagnosis Lung Cancer Post-Op Diagnosis same Procedure Performed Port Surgeon Arron Anesthesia Type: Conscious Sedation Findings Port Complications No Immediate LEATHA RUDOLPH MD Feb 11, 2017 09:46
--- NOTE | 2017-02-11 09:48 | PDOC1 ---
History and Physical Date of Procedure Date of Admission Indication Indication Lung Cancer History of Present Illness Reason for Visit Lung Cancer with metastases Past Medical History Past Medical History see nursing assessment Current Medications Current Medications Current Medications Vancomycin HCl 250 ml @ As Directed STK-MED ONCE .ROUTE ; Start 02/11/17 at 08 :24; Stop 02/11/17 at 08:25; Status DC Lidocaine/ Epinephrine (Xylocaine 2%-Epi 1:100,000) 20 ml STK-MED ONCE .ROUTE ; Start 02/11/17 at 08:24; Stop 02/11/17 at 08:25; Status DC Heparin Sodium (Porcine) (Hep Lock Adult) 500 unit STK-MED ONCE IV ; Start at 08:24; Stop 02/11/17 at 08:25; Status DC Heparin Sodium/ Sodium Chloride 500 ml @ As Directed STK-MED ONCE .ROUTE ; Start 02/11/17 at 08:25; Stop 02/11/17 at 08:26; Status DC Midazolam HCl (Versed) 5 mg STK-MED ONCE .ROUTE ; Start 02/11/17 at 08:45; Stop 02/11/17 at 08:46; Status DC Fentanyl Citrate (Fentanyl 2ml Vial) 100 mcg STK-MED ONCE .ROUTE ; Start at 08:46; Stop 02/11/17 at 08:47; Status DC Levofloxacin/ Dextrose 100 ml @ As Directed STK-MED ONCE IV ; Start 02/11/17 at 08:46; Stop 02/11/17 at 08:47; Status DC Heparin Sodium/ Sodium Chloride 1,000 unit 1X ONCE IART ; Start 02/11/17 at 09 :15; Stop 02/11/17 at 09:26; Status DC Midazolam HCl (Versed) 5 mg 1X ONCE IV ; Start 02/11/17 at 09:15; Stop at 09:26; Status DC Fentanyl Citrate (Fentanyl 2ml Vial) 100 mcg 1X ONCE IV ; Start 02/11/17 at 09 :15; Stop 02/11/17 at 09:26; Status DC Lidocaine/ Epinephrine (Xylocaine 2%-Epi 1:100,000) 20 ml 1X ONCE IJ ; Start 02/11/17 at 09:15; Stop 02/11/17 at 09:26; Status DC Vancomycin HCl 250 ml @ 250 mls/hr 1X ONCE IRR ; Start 02/11/17 at 09:15; Stop 02/11/17 at 10:14 Levofloxacin/ Dextrose 100 ml @ 100 mls/hr 1X ONCE IV ; Start 02/11/17 at 09: 15; Stop 02/11/17 at 10:14 Heparin Sodium (Porcine) (Hep Lock Adult) 500 unit 1X ONCE IV ; Start at 09:30; Stop 02/11/17 at 09:31; Status DC Active Scripts Active Percocet 5-325 Mg Tablet (Oxycodone/Acetaminophen) 1 Each Tablet 1 Tab PO PRN Q6HRS PRN Hydrocodone-Apap 5-325 (Hydrocodone Bit/Acetaminophen) 1 Each Tablet 1 Tab PO PRN Q4HRS PRN Reported Vitamin C (Ascorbic Acid) 1,000 Mg Tablet 1,000 Mg PO DAILY Vitamin E (Vitamin E Mixed) 400 Unit Capsule 400 Unit PO DAILY Charlotte 3-6-9 Complex Softgel (Fish Oil/Borage/Flax/Om3,6,9#1) 400 Mg Capsule 1, 600 Mg PO BID Mag-Oxide (Magnesium Oxide) 400 Mg Tablet 1 Tab PO BID Lisinopril-Hctz 20-25 Mg Tab (Lisinopril/Hydrochlorothiazide) 1 Each Tablet 1 Tab PO DAILY Coreg (Carvedilol) 25 Mg Tablet 1 Tab PO DAILY Metamucil Powder (Psyllium Seed (with Sugar)) 575 Gm Powder 575 Gm PO BID Potassium Chloride 10 Meq Capsule.er 10 Meq PO DAILY Pantoprazole Sodium 40 Mg Tablet.dr 40 Mg PO DAILY Amlodipine Besylate 5 Mg Tablet 5 Mg PO HS Vitamin D3 (Cholecalciferol (Vitamin D3)) 5,000 Unit Tablet 1 Tab PO HS Calcium 500 + Vit D 200 Caplet (Calcium Carbonate/Vitamin D3) 1 Each Tablet 2 Ea PO BID Aspirin Ec (Aspirin) 81 Mg Tablet.dr 1 Tab PO DAILY Lipitor (Atorvastatin Calcium) 40 Mg Tablet 40 Mg PO HS Celebrex (Celecoxib) 200 Mg Capsule 200 Mg PO DAILY Allergies Allergies: Coded Allergies: Penicillins (Verified Allergy, Intermediate, RASH A CHILD, 06/24/16) soy (Verified Adverse Reaction, Intermediate, Nausea and Vomiting, 06/24/16) soy marquez oil Physical Exam Vital Signs Vital Signs Date Time Temp Pulse Resp B/P (MAP) Pulse Ox O2 Delivery O2 Flow Rate FiO2 02/11/17 08:11 97.5 72 18 141/99 (113) 95 Room Air 97.5 Other see nursing assessment Assessment Assessment Lung Cancer Problems: Plan Plan LEATHA Hernandez MD Feb 11, 2017 09:48
--- NOTE | 2017-02-12 10:35 | RAD ---
Procedure: Right IJ Port-A-Cath placement, fluoroscopic guidance Clinical Indication: 61-year-old male with metastatic cancer Sedation: Conscious sedation was administered for 23 minutes. The patient was monitored by a qualified independent observer throughout the time of sedation. Please refer to the medical record for exact doses of medications utilized to achieve moderate sedation. Antibiotics: Antibiotic was administered intravenously within 1 hour of the procedure start time. Exposure: Kerma-Area Product: 1 Gycm2 Contrast: None Sterility: All elements of maximal sterile barrier technique including the use of a cap, mask, sterile gown, sterile gloves, large sterile sheet, appropriate hand hygiene, and 2% chlorhexidine for cutaneous antisepsis (or acceptable alternative antiseptic per current guidelines) were followed for this procedure. Consent: The procedure was explained in its entirety to the patient or the patients designated phone representative by a member of the treatment team, including a discussion of the risks, benefits and commonly accepted alternatives to the procedure, as well as the expected consequences of no therapy whatsoever. Discussion of the risks included, but was not limited to, those that are most frequent and those that are rare but possibly severe or life-threatening, as well as the possibility of unforeseen complications. Technique and Findings: Following informed consent, the patient was prepped and draped in usual sterile fashion. 1% lidocaine was used to achieve local anesthesia over the right neck after ultrasound interrogation revealed patency of the right internal jugular vein. A Hardcopy ultrasound image was recorded. A 21-gauge micropuncture needle was then used to gain access to the vein. The needle was exchanged over wire for a peel-away sheath. The right anterior chest wall was copiously anesthetized with 1% lidocaine. A small dermatotomy was made and blunt dissection techniques were used to create a pocket for the port. A port was then tunneled subcutaneously towards the neck dermatotomy then deployed under fluoroscopic guidance such that the distal tip resided in the proximal right atrium. The port was accessed and found to flush and aspirate with ease. The port was packed with heparin. The pocket was copiously irrigated with vancomycin impregnated sterile saline then closed with deep interrupted and running subcuticular 4-0 Vicryl suture. Dermabond was used to close the right neck dermatotomy. Complications: No immediate Impression: 1. Fluoroscopic and ultrasound-guided port placement as described.
== END 2017-02-11 12:30 | disposition home or self-care (01) ==
LOC: INTRAD 06:46
PROVIDERS: ATTEND Internal Medicine Hematology & Oncology
DX: C34.90 Malignant neoplasm of unspecified part of unspecified bronchus or lung (principal); I25.10 Atherosclerotic heart disease of native coronary artery without angina pectoris; E78.00 Pure hypercholesterolemia, unspecified; I10 Essential (primary) hypertension; F17.200 Nicotine dependence, unspecified, uncomplicated; E66.9 Obesity, unspecified; M19.91 Primary osteoarthritis, unspecified site; Z96.651 Presence of right artificial knee joint; Z79.01 Long term (current) use of anticoagulants; Z87.39 Personal history of other diseases of the musculoskeletal system and connective tissue; Z72.89 Other problems related to lifestyle; Z79.82 Long term (current) use of aspirin; Z88.0 Allergy status to penicillin
CPT/HCPCS: 36415; 36561; 76937; 77001; 80048; 85007; 85025; 85610; 99152; 99153; C1751; C1892; J1644; J1956; J2250; J3010; J3370; J3490; 85014

== ENCOUNTER → 2017-03-13 | Outpatient (CLI) | payer OTHER | END | disposition home or self-care (01) | LOC: PETSC 07:48 | DX: C34.12 Malignant neoplasm of upper lobe, left bronchus or lung (principal); C78.7 Secondary malignant neoplasm of liver and intrahepatic bile duct; C79.51 Secondary malignant neoplasm of bone; I31.3 Pericardial effusion (noninflammatory) | CPT/HCPCS: 78815; A9552 ==

== ENCOUNTER → 2017-05-01 | Outpatient (CLI) | payer OTHER | END | disposition home or self-care (01) | LOC: PETSC 07:23 | DX: C34.11 Malignant neoplasm of upper lobe, right bronchus or lung (principal); C78.7 Secondary malignant neoplasm of liver and intrahepatic bile duct; I31.3 Pericardial effusion (noninflammatory); K57.30 Diverticulosis of large intestine without perforation or abscess without bleeding | CPT/HCPCS: 78815; A9552 ==

== ENCOUNTER 2017-05-18 02:04 | Emergency (ER) | payer OTHER ==
[2017-05-18] MEDS: IV NORMAL SALINE 1000ML BAG 1,000 ML IV (02:31)
[2017-05-18] MEDS: ONDANSETRON PF 4 MG/2 ML VIAL. IV (02:31)
[2017-05-18] MEDS: fentaNYL PF VIAL 100 MCG/2 ML VIAL IV ×3 (02:31→04:16)
[2017-05-18 02:32] LABS: ADD MAN DIFF? NO
[2017-05-18 02:39] LABS: BASO % 1 % (0-3); EOS % 0 % (0-3); HEMATOCRIT 23.6 % (39.0-53.0); LYMPH # 0.5 x10^3/uL (1.0-4.8); LYMPH % 16 % (24-48); MEAN CORPUSCULAR HEMOGLOBIN 34 pg (25-35); MEAN CORPUSCULAR HGB CONC 34 g/dL (31-37); MEAN CORPUSCULAR VOLUME 99 fL (79-100); MONO # 0.4 x10^3/uL (0.0-1.1); MONO % 11 % (0-9); NEUT # 2.5 x10^3uL (1.8-7.7); NEUT % 73 % (31-73); PLATELET COUNT 29 x10^3/uL (140-400); RED BLOOD COUNT 2.38 x10^6/uL (4.30-5.70); RED CELL DISTRIBUTION WIDTH 20.7 % (11.5-14.5); WHITE BLOOD COUNT 3.4 x10^3/uL (4.0-11.0)
[2017-05-18 02:55] LABS: ANION GAP 11 (6-14); BLOOD UREA NITROGEN 14 mg/dL (8-26); BUN/CREATININE RATIO 18 (6-20); CALCIUM 8.2 mg/dL (8.5-10.1); CARBON DIOXIDE 25 mmol/L (21-32); CHLORIDE 106 mmol/L (98-107); CREATININE 0.8 mg/dL (0.7-1.3); GFR 97.6; GLUCOSE 104 mg/dL (70-99); POTASSIUM 3.6 mmol/L (3.5-5.1); SODIUM 142 mmol/L (136-145)
[2017-05-18 02:59] LABS: AMMONIA 13 mcmol/L (11-34)
[2017-05-18 03:02] LABS: ALBUMIN 3.6 g/dL (3.4-5.0); ALBUMIN/GLOBULIN RATIO 1.2 (1.0-1.7); ALK PHOS 114 U/L (46-116); ALT (SGPT) 24 U/L (16-63); AST (SGOT) 19 U/L (15-37); LIPASE 62 U/L (73-393); TOTAL BILIRUBIN 0.3 mg/dL (0.2-1.0); TOTAL PROTEIN 6.7 g/dL (6.4-8.2)
[2017-05-18 03:07] LABS: TROPONINI < 0.017 ng/mL (0.000-0.055)
[2017-05-18 03:09] LABS: CREATINE KINASE 50 U/L (39-308)
[2017-05-18 03:29] LABS: MICROCYTOSIS SLIGHT; PLT ESTIMATE DECREASED (ADEQUATE); POIKILOCYTOSIS SLIGHT; SPHEROCYTES OCC
[2017-05-18] MEDS ORDERED: CONTRAST GIVEN MC (04:00)
[2017-05-18] MEDS: IOHEXOL 300 MG/ML 100ML VIAL. IV (04:22)
== END 2017-05-18 05:00 | disposition home or self-care (01) ==
LOC: ER 02:04
DX: K80.20 Calculus of gallbladder without cholecystitis without obstruction (principal); C34.90 Malignant neoplasm of unspecified part of unspecified bronchus or lung; I10 Essential (primary) hypertension; F10.20 Alcohol dependence, uncomplicated; Z95.5 Presence of coronary angioplasty implant and graft; Z88.0 Allergy status to penicillin; Z91.018 Allergy to other foods
CPT/HCPCS: 36415; 72128; 74177; 80053; 82140; 82553; 83690; 84484; 85025; 96361; 96374; 96375; 96376; 99285-25; J2405; J3010; J7030; Q9967

== ENCOUNTER → 2017-06-12 | Outpatient (CLI) | payer OTHER | END | disposition home or self-care (01) | LOC: PETSC 09:16 | DX: C34.11 Malignant neoplasm of upper lobe, right bronchus or lung (principal); I31.3 Pericardial effusion (noninflammatory); K80.20 Calculus of gallbladder without cholecystitis without obstruction; K57.30 Diverticulosis of large intestine without perforation or abscess without bleeding; E27.8 Other specified disorders of adrenal gland | CPT/HCPCS: 78815; A9552 ==

== ENCOUNTER → 2017-07-31 | Outpatient (CLI) | payer OTHER | END | disposition home or self-care (01) | LOC: PETSC 07:31 | DX: C34.11 Malignant neoplasm of upper lobe, right bronchus or lung (principal) | CPT/HCPCS: 78815; A9552 ==